=== PATIENT | female | born 1965 | race Two or more races ===

== ENCOUNTER 2025-07-16 01:20 | Inpatient (IN) | payer MEDICAID, OTHER ==
[2025-07-16] VITALS (17 sets, daily range): BP systolic 98–111; BP diastolic 61–86; PULSE 79–89; RESP 16–30; TEMP 98.6; O2SAT 94–98
[~2025-07-16] VITALS: Ht 162.6 cm; Wt 93.5 kg
--- NOTE | 2025-07-16 01:36 | ED.PDOC ---
SOB-HPI HPI Comments 60-year-old female came to ER via EMS for shortness a breath. Per EMS, about 2 hours ago, patient developed sudden onset, unprovoked shortness a breath with tachypnea. Denies any acute chest pains. Was saturating at 65% at 5 L/min on scene. Patient does have history of hypertension, dyslipidemia, CHF, pulmonary fibrosis at home oxygen at 5 lpm Chief Complaint: Shortness of breath Time Seen by MD: 01:35 Reviewed notes: Nurses Notes Information Source: Patient Mode of Arrival: EMS Severity: Moderate Timing: Hours Duration: Since onset Context: At Rest History of: CHF, Other (Pulmonary fibrosis) Prehospital treatment: Breathing Tx, Oxygen Past Medical History PAST MEDICAL HISTORY: CHF, High Lipids, HTN Past Medical History (Other): Pulmonary fibrosis Surgical History: Denies all surgeries HYDROELECTRIC PRODUCTION MANAGER History: Denies all HYDROELECTRIC PRODUCTION MANAGER Hx Family History Family History: Reviewed,noncontributory to illness Social History Smoker: Non-Smoker Alcohol: Denies ETOH Use Drugs: Denies Drug Use Lives In: Home Constitutional: denies: chills, diaphoresis, fatigue, fever, malaise, sweats, weakness, others EENTM: denies: blurred vision, double vision, ear bleeding, ear discharge, ear drainage, ear pain, ear ringing, eye pain, eye redness, hearing loss, mouth pain, mouth swelling, nasal discharge, nose bleeding, nose congestion, nose pain, photophobia, tearing, throat pain, throat swelling, voice changes, others Respiratory: reports: SOB at rest, shortness of breath; denies: cough, hemoptysis, orthopnea, SOB with excertion, stridor, wheezing, others Cardiovascular: denies: chest pain, dizzy spells, diaphoresis, Dyspnea on exertion, edema, irregular heart beat, left arm pain, lightheadedness, palpitations, PND, syncope, others Gastrointestinal: denies: abdomen distended, abdominal pain, blood streaked bowels, constipated, diarrhea, dysphagia, difficulty swallowing, hematemesis, melena, nausea, poor appetite, poor fluid intake, rectal bleeding, rectal pain, vomiting, others Genitourinary: denies: abnormal vagina bleeding, burning, dyspareunia, dysuria, flank pain, frequency, hematuria, incontinence, pain, , vagina discharge, urgency, others Neurological: denies: dizziness, fainting, headache, left sided numbness, left sided weakness, numbness, paresthesia, pre-existing deficit, right sided numbness, right sided weakness, seizure, speech problems, tingling, tremors, weakness, others Musculoskeletal: denies: back pain, gout, joint pain, joint swelling, muscle pain, muscle stiffness, neck pain, others Integumetry: denies: bruises, change in color, change in hair/nails, dryness, laceration, lesions, lumps, rash, wounds, others Allergic/Immunocompromised: denies: Difficulty Healing, Frequent Infections, Hives, Itching, others Hematologic/Lymphatic: denies: anemia, blood clots, easy bleeding, easy bruising, swollen glands, others Endocrine: denies: excessive hunger, excessive sweating, excessive thirst, excessive urination, flushing, intolerance to cold, intolerance to heat, unexplained weight gain, unexplained weight loss, others Psychiatric: denies: anxiety, bipolar disorder, depression, hopeless, panic disorder, schizophrenia, sleepless, suicidal, others Physical Exam General Appearance: No Apparent Distress, Normal HEENT: Normal ENT Inspection, Pharynx Normal, TMs Normal Neck: Full Range of Motion, Non-Tender, Normal, Normal Inspection Respiratory: Chest Non-Tender, Lungs Clear, No Accessory Muscle Use, No Respiratory Distress, Normal Breath Sounds Cardiovascular: No Edema, No JVD, No Murmur, No Gallop, Normal Peripheral Pulses, Regular Rate/Rhythm Breast Exam: Deferred Gastrointestinal: No Organomegaly, Non Tender, No Pulsatile Mass, Normal Bowel Sounds, Soft Genitalia: Deferred Pelvic: Deferred Rectal: Deferred Extremities: No calf tenderness, Normal capillary refill, Normal inspection, Normal range of motion, Non-tender, No pedal edema Musculoskeletal : Apperance: Normal Neurologic: Alert, door to door selling agent II-XII nml as Tested, No Motor Deficits, Normal Affect, Normal Mood, No Sensory Deficits Cerebellar Function: Normal Reflexes: Normal Skin: Dry, Normal Color, Warm Lymphatic: No Adenopathy Was a procedure done? Was a procedure done?: No Differential Dx Differential Diagnosis: Anxiety, Asthma, Bronchitis, CHF, COPD, Pneumonia, Respiratory Distress, URI, Other (Pulmonary fibrosis) X-Ray, Labs, Meds, VS Vital Signs Date Time Temp Pulse Resp B/P (MAP) Pulse Ox O2 Delivery O2 Flow Rate FiO2 07/16/25 02:20 98 07/16/25 01:49 94 31 92/63 (73) 97 07/16/25 01:28 98.8 103 31 77/42 (54) 94 98.8 07/16/25 01:28 94 Non-Rebreather 15 N/A 07/16/25 01:24 111 07/16/25 01:20 98.0 128 32 84/63 84 98.0 Lab Test 07/16/25 02:18 07/16/25 01:42 07/16/25 01:27 Range/Units Troponin I High Sensitivity 133 *H 32 </=34 ng/L Blood Gas Specimen Type Venous Blood Gas Sample Site Vbg - n/a Blood Gas Patient Temperature 37.0 Arterial Blood Date Drawn [id number] Moises Test N/a Venous Blood pH 7.398 7.320-7.430 Venous Blood pCO2 at Patient Temp 35.9 L 38.0-54.0 mmHg Venous Blood pO2 at Patient Temp < 36.5 23.0-48.0 mmHg Venous Blood HCO3 21.6 L 22.0-29.0 mmol/L Venous Blood Base Excess -2.5 L -2.0-3.0 mmol/L Blood Gas Liter Flow 15.00 Blood Gas Modality Mask - nrb FiO2 % 100.0 White Blood Count 11.8 H 4.4-10.8 10^3/uL Red Blood Count 4.89 4.0-5.20 10^6/uL Hemoglobin 16.0 12.2-16.2 g/dL Hematocrit 47.6 H 36.0-46.0 % Mean Corpuscular Volume 97.5 80.0-100.0 fL Mean Corpuscular Hemoglobin 32.8 H 28.0-32.0 pg Mean Corpuscular Hemoglobin Concent 33.6 32.0-36.0 g/dL Red Cell Distribution Width 15.1 H 11.8-14.3 % Platelet Count 199 140-450 10^3/uL Mean Platelet Volume 9.8 6.9-10.8 fL Neutrophils (%) (Auto) 49.8 37.0-80.0 % Lymphocytes (%) (Auto) 39.0 10.0-50.0 % Monocytes (%) (Auto) 6.4 0.0-12.0 % Eosinophils (%) (Auto) 4.3 0.0-7.0 % Basophils (%) (Auto) 0.5 0.0-2.0 % Neutrophils # (Auto) 5.9 1.6-8.6 10 ^3/uL Lymphocytes # (Auto) 4.6 0.4-5.4 10 ^3/uL Monocytes # (Auto) 0.8 0-1.3 10 ^3/uL Eosinophils # (Auto) 0.5 0-0.8 10 ^3/uL Basophils # (Auto) 0.1 0-0.2 10 ^3/uL Nucleated Red Blood Cells 0.1 % Sodium Level 139 136-145 mmol/L Potassium Level 2.5 *L 3.5-5.1 mmol/L Chloride Level 98 98-107 mmol/L Carbon Dioxide Level 21 20-31 mmol/L Anion Gap 20 H 5-15 Blood Urea Nitrogen 14 9-23 mg/dL Creatinine 1.09 H 0.550-1.02 mg/dL Glomerular Filtration Rate Calc 58 >90 mL/min BUN/Creatinine Ratio 12.8 10.0-20.0 Serum Glucose 144 H 74-106 mg/dL Lactic Acid Level 7.8 *H 0.4-2.0 mmol/L Calcium Level 8.6 L 8.7-10.4 mg/dL Total Bilirubin 0.7 0.2-1.0 mg/dL Aspartate Amino Transferase (AST) 84 H 13-40 U/L Alanine Aminotransferase (ALT) 42 H 7-40 U/L Alkaline Phosphatase 184 H 46-116 U/L B-Type Natriuretic Peptide 1146.90 0-100 pg/mL Total Protein 7.5 5.7-8.2 g/dL Albumin 3.5 3.2-4.8 g/dL Current Medications Medications (Trade) Dose Ordered Sig/Lencho Route Start Time Stop Time Status Last Admin Sodium Chloride 1,000 ml @ 1,000 mls/hr Q1H ONCE IV 07/16/25 01:30 07/16/25 02:29 DC 07/16/25 01:42 CHEST RADIOGRAPH Indication: SOB Technique: Single frontal view of the chest was obtained COMPARISON: None FINDINGS: Lines and Tubes: None Lungs: Moderate diffuse increased prominence of the pulmonary vasculature and interstitium. No evidence of focal consolidation. Pleura: No effusion. No pneumothorax. Cardiomediastinal contours: Unremarkable Bones: Unremarkable IMPRESSION: 1. Moderate diffuse increased prominence of the pulmonary vasculature and interstitium. Time of 1ST Reevaluation: 01:31 Reevaluation 1ST: Unchanged Patient Education/Counseling: Diagnosis, Treatment Family Education/Counseling: No Family Present SEPSIS Sepsis Screen Physician Orders Troponin-I Hs (07/16/25 09:00) Urinalysis (07/16/25 01:28) Blood Culture (07/16/25 01:28) Electrocardigram (07/16/25 01:28) Venous Blood Gas (07/16/25 01:28) Chest Portable (07/16/25 01:50) Piperacillin-Tazob 3.375gm (Zosyn 3.375g (07/16/25 02:30) Azithromycin 500mg/ 250ml (Zithromax 50 (07/16/25 02:30) Sodium Chloride 0.9% (07/16/25 03:15) Vital Signs Date Time Temp Pulse Resp B/P (MAP) Pulse Ox O2 Delivery O2 Flow Rate FiO2 07/16/25 02:20 98 07/16/25 01:49 94 31 92/63 (73) 97 07/16/25 01:28 98.8 103 31 77/42 (54) 94 98.8 07/16/25 01:28 94 Non-Rebreather 15 N/A 07/16/25 01:24 111 07/16/25 01:20 98.0 128 32 84/63 84 98.0 Laboratory Tests Test 07/16/25 01:27 Lactic Acid Level 7.8 mmol/L (0.4-2.0) *H White Blood Count 11.8 10^3/uL (4.4-10.8) H Medications Medications Dose Ordered Sig/Lencho Route Start Time Stop Time Status Last Admin Dose Admin Sodium Chloride 1,000 ml @ 1,000 mls/hr Q1H ONCE IV 07/16/25 01:30 07/16/25 02:29 DC 07/16/25 01:42 Departure 1 Departure Time of Disposition: 03:20 Impression: Primary Impression: Pulmonary fibrosis Additional Impressions: Respiratory failure with hypoxia Hypotension Acute renal injury Disposition: ADMITTED INPATIENT Admit to: Tele Condition: Guarded Discharged With: Self Comments 60-year-old female with a history of pulmonary fibrosis now with respiratory failure and hypoxia. Patient is requiring non-rebreather mask for oxygenation. On lab review white blood cell count mildly elevated at 12. Hypokalemia 2.5. Lactic acid elevated some 7.8. Troponin initially was normal at 32 but increased to abnormal 133. Creatinine elevated at 1.09. Patient was given IV fluids in her blood pressure improved. Patient was given IV antibiotics. Patient was given potassium replacement and an aspirin. Patient will need to be admitted for respiratory failure with hypoxia, pulmonary fibrosis, hypotension, acute renal injury Critical Care Note Critical Care Time?: Yes (35 min-critical care time only) Critical care comment: Shortness of breath Total critical care time: Approximately 36 minutes Due to a high probability of clinically significant, life threatening deterioration, the patient required my highest level of preparedness to intervene emergently and I personally spent this critical care time directly and personally managing the patient. This critical care time included obtaining a history; examining the patient; pulse oximetry; ordering and review of studies; arranging urgent treatment with development of a management plan; evaluation of patient's response to treatment; frequent reassessment; and, discussions with other providers. This critical care time was performed to assess and manage the high probability of imminent, life-threatening deterioration that could result in multi-organ failure. It was exclusive of separately billable procedures and treating other patients. Stability Stability form required: No Heart Score Heart Score: Heart Score Response (Comments) Value History Moderate Suspicious 1 EKG Repolarization Disturb 1 Age 45-64 1 Risk Factors >3 or Hx ASHD 2 Troponin >3 x's Normal limit 2 Total 7 I personally scribed for ALVARO MADRID MD (MAYUR) on 07/16/25 at 01:36. Electronically submitted by Dewayne Briggs ([email or web address] I personally scribed for ALVARO MADRID MD (MAYUR) on 07/16/25 at 02:31. Electronically submitted by Dewayne Briggs ([facility] I personally scribed for ALVARO MADRID MD (MAYUR) on 07/16/25 at 02:32. Electronically submitted by Dewayne Briggs ([facility]). I personally scribed for ALVARO MADRID MD ([email or web address]) on 07/16/25 at 02:38. Electronically submitted by Dewayne Briggs ([facility]). ALVARO MADRID MD Jul 16, 2025 01:36
[2025-07-16] MEDS: SODIUM CHLORIDE 0.9% 1,000 ML IV ONE ×3 (01:42→03:20)
[2025-07-16 01:59] LABS: Hematocrit 47.6 % (36.0-46.0); Hemoglobin 16.0 g/dL (12.2-16.2); Mean Corpuscular Hemoglobin 32.8 pg (28.0-32.0); Mean Corpuscular Volume 97.5 fL (80.0-100.0); Nucleated Red Blood Cells % 0.1 %
[2025-07-16 02:18] LABS: Albumin 3.5 g/dL (3.2-4.8); Anion Gap 20 (5-15); BUN/Creatinine Ratio 12.8 (10.0-20.0); Bilirubin, Total 0.7 mg/dL (0.2-1.0); Blood Urea Nitrogen 14 mg/dL (9-23); Carbon Dioxide 21 mmol/L (20-31); Chloride 98 mmol/L (98-107); Sodium 139 mmol/L (136-145); Total Protein 7.5 g/dL (5.7-8.2)
[2025-07-16 02:19] LABS: Alanine Aminotransferase 42 U/L (7-40); Alkaline Phosphatase 184 U/L (46-116); Calcium 8.6 mg/dL (8.7-10.4); Glucose 144 mg/dL (74-106)
[2025-07-16 02:24] LABS: Lactic Acid w/Reflex 7.8 mmol/L (0.4-2.0); Potassium 2.5 mmol/L (3.5-5.1)
--- NOTE | 2025-07-16 02:25 | DVH ---
CHEST RADIOGRAPH Indication: SOB Technique: Single frontal view of the chest was obtained COMPARISON: None FINDINGS: Lines and Tubes: None Lungs: Moderate diffuse increased prominence of the pulmonary vasculature and interstitium. No eviden ce of focal consolidation. Pleura: No effusion. No pneumothorax. Cardiomediastinal contours: Unremarkable Bones: Unremarkable IMPRESSION: 1. Moderate diffuse increased prominence of the pulmonary vasculature and interstitium.
[2025-07-16] MEDS: PIPERACILLIN-TAZOB 3.375GM 100 ML IV ONE (02:40)
[2025-07-16] MEDS: AZITHROMYCIN 500MG/ 250ML 250 ML IV ONE (03:47)
--- NOTE | 2025-07-16 03:52 | ECG ---
[facility] Test Date: 2025-07-16 Test Time: 02:20:38 Pat Name: DEBRA RIVERA Department: Room: [address] [place] [address] Gender: F Computer Training Specialist: IFEOMA : 1965 Requested By: ALVARO MADRID Order Number: [id number] Reading MD: Tomás Reid Measurements Intervals [place] Rate: 98 P: 15 [place]: 176 QRS: 132 QRSD: 94 T: -56 QT: 365 QTc: 467 Interpretive Statements Sinus rhythm Left atrial enlargement RVH with secondary repolarization abnrm Electronically Signed On 07-19-2025 10:23:22 PDT by Tomás Reid Please click the below link to view image of tracing.
[2025-07-16] MEDS: NOREPINEPHRINE 8 MG/250ML KIT 250 ML IV SCH (04:43)
[2025-07-16] MEDS: NOREPINEPHRINE 8 MG/250ML KIT 250 ML IV ONE (04:45)
--- NOTE | 2025-07-16 06:16 | DVH ---
CHEST RADIOGRAPH Indication: Central line placement Technique: Single frontal view of the chest was obtained Comparison: XY CHEST PORTABLE on DOS: 07/16/25 FINDINGS: Lines and Tubes: There is a right central venous catheter with its tip terminating in the right atriu m. Lungs: Bilateral increased interstitial prominence. No focal consolidation. Pleura: No effusion. No pneumothorax. Cardiomediastinal contours: Unremarkable Bones: No acute osseous abnormality. IMPRESSION: 1. Right central venous catheter terminates in the right atrium. 2. Pulmonary vascular congestion versus interstitial lung disease.
--- NOTE | 2025-07-16 07:54 | DVHHP2 ---
History of Present Illness Reason for Visit: Shortness of breath History of Present Illness Silvana Blanca is a 60-year-old female with past medical history of pulmonary hypertension that requires home oxygen, states she was diagnosed in 2022, and has been worsening. She states this year it has become severe. She is on 5L N/C at home and mostly bedbound. She was brought to the hospital by EMS for shortness of breath. Patient states last night about 2300 she began to not feel well. States she felt like it was difficult to lift her head, became nauseated, and diaphoretic. That is when she asked her daughter to call EMS. Patient has been mostly bedbound for the last 6 months due to the severity of her pulmonary hypertension. Pulmonary: Other (Pulmonary hypertension) Past Surgical History: None Smoke: No ALCOHOL: none Drugs: None Lives: with Family Domestic Violence: Neg Review of Systems Constitutional: Yes: Sweats, Weakness; No: Fever, Chills, Malaise, Other Eyes: No: Pain, Vision change, Conjunctivae inflammation, Eyelid inflammation, Other, Redness ENT: No: Ear pain, Ear discharge, Nose pain, Nose discharge, Nose congestion, Mouth pain, Mouth swelling, Throat pain, Throat swelling, Other Respiratory: Shortness of breath, SOB with excertion; No: Cough, Dry, Wheezing, Hemoptysis, Pleuritic Pain, Sputum, Wheezing, Other Cardiovascular: No: Chest Pain, Palpitations, Orthopnea, Paroxysmal Noc. Dyspnea, Edema, Lt Headedness, Other Gastrointestinal: Nausea; No: Vomiting, Abdominal Pain, Diarrhea, Constipation, Melena, Hematochezia, Other Genitourinary: No Dysuria, No Frequency, No Incontinence, No Hematuria, No Retention, No Other Musculoskeletal: No: other, neck pain, shoulder pain, arm pain, back pain, hand pain, leg pain, foot pain Skin: No: Rash, Lesions, Jaundice, Bruising, Other Neurological: No: Weakness, Numbness, Incoordination, Change in speech, Confusion, Seizures, Other Allergies: Coded Allergies: NO KNOWN ALLERGIES (Unverified , 07/16/25) Medications Current Medications Medications Dose Ordered Sig/Lencho Route Start Time Stop Time Status Last Admin Dose Admin Norepinephrine Bitartrate 250 ml @ 3.75 mls/hr Q24H IV 07/16/25 04:45 07/16/25 04:43 3.75 MLS/HR Exam Vital Signs Vital Signs Date Time Temp Pulse Resp B/P (MAP) Pulse Ox O2 Delivery O2 Flow Rate FiO2 07/16/25 07:00 97.8 84 27 102/58 (73) 95 97.8 07/16/25 01:28 Non-Rebreather 15 N/A General Appearance: Alert, Oriented X3, Cooperative, mild distress HEENT: Atraumatic, PERRLA Respiratory: Other (Diminished breath sounds) Cardiovascular: Regular rate, Normal S1, Normal S2, Other (Hypotensive) Abdominal: Normal bowel sounds, Soft Extremities: No clubbing, No cyanosis, No edema Skin: No rashes, No breakdown, No significant lesion Neuro: Normal speech, Other (mostly bedbound at baseline due to severe pulmonary hypertension) Psych/Mental Status: Mental status NL Labs/Xrays Labs Test 07/16/25 04:41 07/16/25 03:10 07/16/25 01:42 07/16/25 01:27 Range/Units Troponin I High Sensitivity 909 *H </=34 ng/L Lactic Acid Level 2.7 *H 0.4-2.0 mmol/L Blood Gas Specimen Type Venous Blood Gas Sample Site Vbg - n/a Blood Gas Patient Temperature 37.0 Arterial Blood Date Drawn [id number] Moises Test N/a Venous Blood pH 7.398 7.320-7.430 Venous Blood pCO2 at Patient Temp 35.9 L 38.0-54.0 mmHg Venous Blood pO2 at Patient Temp < 36.5 23.0-48.0 mmHg Venous Blood HCO3 21.6 L 22.0-29.0 mmol/L Venous Blood Base Excess -2.5 L -2.0-3.0 mmol/L Blood Gas Liter Flow 15.00 Blood Gas Modality Mask - nrb FiO2 % 100.0 White Blood Count 11.8 H 4.4-10.8 10^3/uL Red Blood Count 4.89 4.0-5.20 10^6/uL Hemoglobin 16.0 12.2-16.2 g/dL Hematocrit 47.6 H 36.0-46.0 % Mean Corpuscular Volume 97.5 80.0-100.0 fL Mean Corpuscular Hemoglobin 32.8 H 28.0-32.0 pg Mean Corpuscular Hemoglobin Concent 33.6 32.0-36.0 g/dL Red Cell Distribution Width 15.1 H 11.8-14.3 % Platelet Count 199 140-450 10^3/uL Mean Platelet Volume 9.8 6.9-10.8 fL Neutrophils (%) (Auto) 49.8 37.0-80.0 % Lymphocytes (%) (Auto) 39.0 10.0-50.0 % Monocytes (%) (Auto) 6.4 0.0-12.0 % Eosinophils (%) (Auto) 4.3 0.0-7.0 % Basophils (%) (Auto) 0.5 0.0-2.0 % Neutrophils # (Auto) 5.9 1.6-8.6 10 ^3/uL Lymphocytes # (Auto) 4.6 0.4-5.4 10 ^3/uL Monocytes # (Auto) 0.8 0-1.3 10 ^3/uL Eosinophils # (Auto) 0.5 0-0.8 10 ^3/uL Basophils # (Auto) 0.1 0-0.2 10 ^3/uL Nucleated Red Blood Cells 0.1 % Sodium Level 139 136-145 mmol/L Potassium Level 2.5 *L 3.5-5.1 mmol/L Chloride Level 98 98-107 mmol/L Carbon Dioxide Level 21 20-31 mmol/L Anion Gap 20 H 5-15 Blood Urea Nitrogen 14 9-23 mg/dL Creatinine 1.09 H 0.550-1.02 mg/dL Glomerular Filtration Rate Calc 58 >90 mL/min BUN/Creatinine Ratio 12.8 10.0-20.0 Serum Glucose 144 H 74-106 mg/dL Calcium Level 8.6 L 8.7-10.4 mg/dL Total Bilirubin 0.7 0.2-1.0 mg/dL Aspartate Amino Transferase (AST) 84 H 13-40 U/L Alanine Aminotransferase (ALT) 42 H 7-40 U/L Alkaline Phosphatase 184 H 46-116 U/L B-Type Natriuretic Peptide 1146.90 0-100 pg/mL Total Protein 7.5 5.7-8.2 g/dL Albumin 3.5 3.2-4.8 g/dL CHEST RADIOGRAPH FINDINGS: Lines and Tubes: There is a right central venous catheter with its tip terminating in the right atrium. Lungs: Bilateral increased interstitial prominence. No focal consolidation. Pleura: No effusion. No pneumothorax. Cardiomediastinal contours: Unremarkable Bones: No acute osseous abnormality. IMPRESSION: 1. Right central venous catheter terminates in the right atrium. 2. Pulmonary vascular congestion versus interstitial lung disease. SEPSIS Sepsis Screen Date sepsis recognized/suspect: Jul 16, 2025 Time Sepsis recognized/suspect: 227 Recent Procedure: No On Antibiotic Therapy: No Respiratory Rate >20: Yes Heart Rate >90: Yes Temp<36 C (96.8 F) or >38.3 C: No SBP <90 or MAP <65 mmHG: Yes New Acute Mental Status Change: No Is the patient on CPAP, BIPAP,: No Physician Orders Urinalysis (07/16/25 01:28) Blood Culture (07/16/25 01:28) Venous Blood Gas (07/16/25 01:28) Chest Portable (07/16/25 01:50) Norepinephrine 8 Mg/250ml Kit (Levophed) (07/16/25 04:45) Chest Portable (07/16/25 05:37) * Cardiology Consult (07/16/25 07:48) Admit (07/16/25 07:48) Code Status (07/16/25 07:48) Hydrocodone-Acet 5/325mg Tab ([place] (07/16/25 08:00) Ondansetron Hcl (Zofran) (07/16/25 08:00) Docusate Sodium Capsule (Colace Capsule) (07/16/25 08:00) Complete Blood Count (07/17/25 04:00) Comprehensive Metabolic Panel (07/17/25 04:00) Npo (Nothing By Mouth) Diet (07/16/25 Breakfast) Echo 2d Mode Cardiac Dop (07/16/25 07:48) Condition: Critical (07/16/25 07:48) Acetaminophen Tablet (Tylenol Tablet) (07/16/25 08:00) Morphine Sulfate Injection (07/16/25 08:00) Nitroglycerin Sublingual (Ntrostat Subli (07/16/25 08:00) Morphine Sulfate Injection (07/16/25 08:00) Stat Ekg For Chest Pain (07/16/25 07:48) Notify Of Changes From Base (07/16/25 07:48) Latent Fingerprint Examiner For 24 Hours (07/16/25 07:48) Emergency Dysrhythmia Protocol (07/16/25 07:48) Rhythm Strips Once Every Shift (07/16/25 07:48) Oxygen By Nasal Cannula (07/16/25 07:48) Vital Signs Date Time Temp Pulse Resp B/P (MAP) Pulse Ox O2 Delivery O2 Flow Rate FiO2 07/16/25 07:00 97.8 84 27 102/58 (73) 95 97.8 07/16/25 07:00 102/58 07/16/25 06:00 104/57 07/16/25 06:00 80 22 104/57 (73) 99 07/16/25 05:44 88/58 07/16/25 05:10 85 22 99/65 (76) 97 07/16/25 04:48 76/51 07/16/25 04:43 64/34 07/16/25 04:00 87 18 91/52 (65) 97 07/16/25 04:00 88 07/16/25 02:20 98 07/16/25 01:49 94 31 92/63 (73) 97 07/16/25 01:28 98.8 103 31 77/42 (54) 94 98.8 07/16/25 01:28 94 Non-Rebreather 15 N/A 07/16/25 01:24 111 07/16/25 01:20 98.0 128 32 84/63 84 98.0 Laboratory Tests Test 07/16/25 01:27 07/16/25 03:10 Lactic Acid Level 7.8 mmol/L (0.4-2.0) *H 2.7 mmol/L (0.4-2.0) *H White Blood Count 11.8 10^3/uL (4.4-10.8) H Medications Medications Dose Ordered Sig/Lencho Route Start Time Stop Time Status Last Admin Dose Admin Aspirin 162 mg ONCE ONCE PO 07/16/25 03:00 07/16/25 03:01 DC 07/16/25 03:25 162 MG Azithromycin 250 ml @ 125 mls/hr ONCE ONCE IV 07/16/25 02:30 07/16/25 04:29 DC 07/16/25 03:47 125 MLS/HR Norepinephrine Bitartrate 250 ml @ 3.75 mls/hr Q24H IV 07/16/25 04:45 07/16/25 04:43 3.75 MLS/HR Piperacillin Sod/ Tazobactam Sod 100 ml @ 100 mls/hr ONCE ONCE IV 07/16/25 02:30 07/16/25 03:29 DC 07/16/25 02:40 100 MLS/HR Sodium Chloride 1,000 ml @ 1,000 mls/hr Q1H ONCE IV 07/16/25 01:30 07/16/25 02:29 DC 07/16/25 01:42 1,000 MLS/HR Sodium Chloride 1,000 ml @ 1,000 mls/hr Q1H ONCE IV 07/16/25 03:15 07/16/25 04:14 DC 07/16/25 03:20 1,000 MLS/HR Assessment/Plan Assessment/Plan Assessment: Acute hypoxic respiratory failure, Elevated troponin, R/O ACS, Possible cardiogenic shock, Lactic acidosis, R/O PE, Pulmonary hypertension, oxygen dependant, Plan: Admit to ICU, Cardiology consult, Consider pulmonology consult for severe pulmonary hypertension, Vasopressors as needed, ECHO, A1c, lipid panel, TSH, D-Dimer, Bilateral lower extremity ultrasound, Consider CT angio of chest, IV antibiotics, Blood cultures, UA, Bilateral lower extremity ultrasound, CT angio of chest, Home medications reconciled, Plan discussed with: Patient My Orders Orders - FERNIE NEGRON [employer] Procedure Category Date Status Time * Cardiology Consult CONS 07/16/25 Transmitted 07:48 Admit ADMIT 07/16/25 Transmitted 07:48 Code Status CODE 07/16/25 Transmitted 07:48 Hydrocodone-Acet PHA 07/16/25 Transmitted 5/325mg Tab ([place] 08:00 Ondansetron Hcl PHA 07/16/25 Transmitted (Zofran) 08:00 Docusate Sodium PHA 07/16/25 Transmitted Capsule (Colace 08:00 Complete Blood Count LAB 07/17/25 Verified 04:00 Comprehensive LAB 07/17/25 Verified Metabolic Panel 04:00 Npo (Nothing By DIET 07/16/25 Transmitted Mouth) Diet Breakfast Echo 2d Mode Cardiac US 07/16/25 Transmitted DOP 07:48 Condition: Critical PRANAV 07/16/25 In Process 07:48 Acetaminophen Tablet PHA 07/16/25 Transmitted (Tylenol Tablet) 08:00 Morphine Sulfate [facility] 07/16/25 Transmitted Injection 08:00 Nitroglycerin [facility] 07/16/25 Transmitted Sublingual (Ntrostat 08:00 Morphine Sulfate [facility] 07/16/25 Transmitted Injection 08:00 Stat Ekg For Chest [facility] 07/16/25 In Process Pain 07:48 Notify Of Changes [facility] 07/16/25 In Process From Base 07:48 Latent Fingerprint Examiner For [facility] 07/16/25 In Process 24 Hours 07:48 Emergency Dysrhythmia [facility] 07/16/25 In Process Protocol 07:48 Rhythm Strips Once [facility] 07/16/25 In Process Every Shift 07:48 Oxygen By Nasal RT 07/16/25 Transmitted Cannula 07:48 Date of Service: Jul 16, 2025 Billing Provider: FERNIE NEGRON Common Visit Codes: [id number] INP/OBS CARE (HIGH) FERNIE NEGRON Jul 16, 2025 07:54
[2025-07-16] MEDS ORDERED: MORPHINE SULFATE INJ 2 MG/ml SYRG IV PRN ×2 (08:00)
[2025-07-16] MEDS ORDERED: NITROGLYCERIN 0.4 MG SL TAB SL PRN (08:00)
[2025-07-16] MEDS: POTASSIUM CHL 20MEQ/100ML 100 ML IV SCH (09:13)
[2025-07-16] MEDS: HYDROcodone-ACET 5/325MG TAB PO PRN (10:09)
[2025-07-16 10:44] LABS: Cholesterol 90 mg/dL (< 200)
[2025-07-16 10:50] LABS: HDL Cholesterol 20 mg/dL (40-59); Triglycerides 170 mg/dL (< 150)
[2025-07-16 10:52] LABS: Lactic Acid w/Reflex 2.2 mmol/L (0.4-2.0)
--- NOTE | 2025-07-16 11:34 | DVHINCON2 ---
Date Seen: Jul 16, 2025 Referring Physician TEODORO Meyer Reason for Consultation Elevated troponin History of Present Illness This is a 60 year old female patient who presents to emergency room with chief complaint of worsening shortness of breath for 2 hours prior to emergency room arrival. The patient states that she checked her pulse oximetry at home which was reaching 60% with 4 L of home O2. She came to the emergency room for further evaluation. Cardiology has been consulted at this time for elevated troponin level. Initial twelve lead electrocardiogram reveals sinus tachycardia with PVCs, PACs with baseline wander. Initial troponin level of 32ng/L with significant up trend and current peak level of 2845ng/L. Patient denies any chest pain. Significant past medical history includes right-sided heart failure, pulmonary hypertension, dyslipidemia, pulmonary fibrosis on continuous home O2, history of tobacco use and remote history of drug use. The patient denies following up with a pipe changer in the outpatient setting. Past Medical History Past medical history reviewed. No other significant than mentioned above. Past Surgical History Denies any previous surgeries Family History Family history reviewed. Social History Patient has a 15 pack-year history, quit smoking approximately 11 months ago Patient admits to heroin use over 40 years ago, denies any recent use Denies alcohol use Allergies: Coded Allergies: NO KNOWN ALLERGIES (Unverified , 07/16/25) Home Meds Home medications reviewed. Current Medications Current Medications Medications (Trade) Dose Ordered Sig/Lencho Route PRN Reason Start Time Stop Time Status Last Admin Norepinephrine Bitartrate 250 ml @ 3.75 mls/hr Q24H IV 07/16/25 04:45 07/16/25 04:43 Acetaminophen/ Hydrocodone Bitart ([place] 5/325MG Tab) 1 tab Q4HP PRN PO MODERATE PAIN (4-6 PAIN SCALE) 07/16/25 08:00 07/16/25 10:09 Ondansetron HCl (Zofran) 4 mg Q4HP PRN IV NAUSEA / VOMITING 07/16/25 08:00 Docusate Sodium (Colace Capsule) 100 mg BIDPRN PRN PO FOR CONSTIPATION 07/16/25 08:00 Acetaminophen (Tylenol Tablet) 650 mg Q6HP PRN PO PAIN SCALE 1-3 OR TEMP>100.4 07/16/25 08:00 Morphine Sulfate 2 mg Q4HPRN PRN IV SEVERE PAIN (7-10 PAIN SCALE) 07/16/25 08:00 Nitroglycerin (Ntrostat Sublingual) 0.4 mg Q5MINP PRN SL FOR CHEST PAIN 07/16/25 08:00 Morphine Sulfate 2 mg Q30M PRN IV FOR CHEST PAIN 07/16/25 08:00 Potassium Chloride 100 ml @ 50 mls/hr Q2H IV 07/16/25 08:30 07/16/25 14:29 07/16/25 10:52 Review of Systems Constitutional: No symptom reported Ears, Nose, & Throat: No symptom reported Eyes: No symptom reported Neurological: No symptoms reported Pulmonary/Respiratory: Shortness of breath Cardiovascular: No symptom reported Gastrointestinal: No symptom reported Genitourinary: No symptom reported Musculoskeletal: No symptom reported Skin: No symptom reported Psychiatric: No symptom reported Endocrine: No symptom reported Hematologic/Lymphatic: No symptom reported Vital Signs Vital Signs Date Time Temp Pulse Resp B/P (MAP) Pulse Ox O2 Delivery O2 Flow Rate FiO2 07/16/25 11:18 87 07/16/25 07:25 97.8 29 98 97.8 07/16/25 07:25 Hi-Flow NC 11 N/A 07/16/25 07:00 102/58 (73) Physical Exam General Appearance: Cooperative. Well-developed. Well-nourished. No acute distress. Pulmonary/Respiratory: Clear, bilateral breaths sounds. Cardiovascular/Chest: Regular rate and rhythm. Peripheral Pulses: 2+ Radial (R). 2+ Radial (L). 2+ Pedal (R). 2+ Pedal (L) Abdominal Exam: Normal bowel sounds. Ankle Exam: Negative ankle edema Lower extremities: Negative lower extremity edema Neuro/Mental Status: A/OX4, coherent. Thoughts/Psych: Normal thought pattern. Appropriate mood and affect. Good judgment and insight. Appearance: No acute distress. Skin Exam: Normal inspection. Normal color. Warm and dry. Labs/Diagnostic Data Labs Test 07/16/25 10:44 07/16/25 09:14 07/16/25 01:42 07/16/25 01:27 Range/Units Troponin I High Sensitivity 2845 *H </=34 ng/L Hemoglobin A1c 5.5 <5.7 % A1C Lactic Acid Level 2.2 *H 0.4-2.0 mmol/L Triglycerides Level 170 H < 150 mg/dL Cholesterol Level 90 < 200 mg/dL LDL Cholesterol 61 < 100 mg/dL HDL Cholesterol 20 L 40-59 mg/dL Thyroid Stimulating Hormone (TSH) 0.26 L 0.55-4.78 uIU/mL Blood Gas Specimen Type Venous Blood Gas Sample Site Vbg - n/a Blood Gas Patient Temperature 37.0 Arterial Blood Date Drawn [id number] Moises Test N/a Venous Blood pH 7.398 7.320-7.430 Venous Blood pCO2 at Patient Temp 35.9 L 38.0-54.0 mmHg Venous Blood pO2 at Patient Temp < 36.5 23.0-48.0 mmHg Venous Blood HCO3 21.6 L 22.0-29.0 mmol/L Venous Blood Base Excess -2.5 L -2.0-3.0 mmol/L Blood Gas Liter Flow 15.00 Blood Gas Modality Mask - nrb FiO2 % 100.0 White Blood Count 11.8 H 4.4-10.8 10^3/uL Red Blood Count 4.89 4.0-5.20 10^6/uL Hemoglobin 16.0 12.2-16.2 g/dL Hematocrit 47.6 H 36.0-46.0 % Mean Corpuscular Volume 97.5 80.0-100.0 fL Mean Corpuscular Hemoglobin 32.8 H 28.0-32.0 pg Mean Corpuscular Hemoglobin Concent 33.6 32.0-36.0 g/dL Red Cell Distribution Width 15.1 H 11.8-14.3 % Platelet Count 199 140-450 10^3/uL Mean Platelet Volume 9.8 6.9-10.8 fL Neutrophils (%) (Auto) 49.8 37.0-80.0 % Lymphocytes (%) (Auto) 39.0 10.0-50.0 % Monocytes (%) (Auto) 6.4 0.0-12.0 % Eosinophils (%) (Auto) 4.3 0.0-7.0 % Basophils (%) (Auto) 0.5 0.0-2.0 % Neutrophils # (Auto) 5.9 1.6-8.6 10 ^3/uL Lymphocytes # (Auto) 4.6 0.4-5.4 10 ^3/uL Monocytes # (Auto) 0.8 0-1.3 10 ^3/uL Eosinophils # (Auto) 0.5 0-0.8 10 ^3/uL Basophils # (Auto) 0.1 0-0.2 10 ^3/uL Nucleated Red Blood Cells 0.1 % Sodium Level 139 136-145 mmol/L Potassium Level 2.5 *L 3.5-5.1 mmol/L Chloride Level 98 98-107 mmol/L Carbon Dioxide Level 21 20-31 mmol/L Anion Gap 20 H 5-15 Blood Urea Nitrogen 14 9-23 mg/dL Creatinine 1.09 H 0.550-1.02 mg/dL Glomerular Filtration Rate Calc 58 >90 mL/min BUN/Creatinine Ratio 12.8 10.0-20.0 Serum Glucose 144 H 74-106 mg/dL Calcium Level 8.6 L 8.7-10.4 mg/dL Total Bilirubin 0.7 0.2-1.0 mg/dL Aspartate Amino Transferase (AST) 84 H 13-40 U/L Alanine Aminotransferase (ALT) 42 H 7-40 U/L Alkaline Phosphatase 184 H 46-116 U/L B-Type Natriuretic Peptide 1146.90 0-100 pg/mL Total Protein 7.5 5.7-8.2 g/dL Albumin 3.5 3.2-4.8 g/dL Assessment NSTEMI Rule out structural heart disease Tricuspid valve regurgitation Septic shock vs cardiogenic, ?Mixed Severe hypokalemia Severe pulmonary hypertension Pulmonary fibrosis on continuous home O2 Transaminitis History of tobacco use Remote history of drug use Plan/Recommendation We will continue with the following plan/recommendations (Dr. Zavaleta): Case discussed with . MD Dr. Zavaleta was able to obtain records from [facility] which discovered a recent echocardiogram in April which revealed right-sided heart failure with severe pulmonary hypertension and tricuspid valve regurgitation. We will proceed with obtaining a transthoracic echocardiogram to evaluate cardiac function and check for wall motion abnormalities. Patient is currently on vasopressor therapy for hemodynamic support. Elevated troponin levels noted. Patient currently denies any chest pain, but became in with shortness of breath. Primary team ruling out pulmonary embolism. Elevated lactic acid level noted. Case also discussed with . No urgent need for coronary angiogram at this time. Initiate therapeutic Lovenox in the meantime. Plan for possible coronary angiogram in the next few days. Consider diuresis with stable potassium level. Monitor and replete electrolytes as needed. Continue with close cardiac surveillance. Further recommendations per clinical course and progression. Antibiotics per primary care team. Thank you for allo wing us to care for this patient. Please call with any questions or concerns. Critical care time spent: 44 minutes This medical document was created using an electronic medical record system with voice recognition software and computerized dictation system. Although this document has been carefully reviewed, there might still be some phonetic and typographical errors. Occasional wrong-word or ``sound-alike substitutions may have occurred due to the inherent limitations of voice recognition software. These areas are purely typographical due to imperfections of the software programs and do not reflect any compromise in the patient's medical care. Please read the chart carefully and recognize, using context, where these substitutions have occurred. Plan discussed with: Patient NYHA Physical activity limitations: NA Date of Service: Jul 16, 2025 Billing Provider: BABITA LIZ Cardiology Common Codes: [id number] INP/OBS CARE (High) Cardiology Consultation Codes: [id number] CONSULT <45MIN BABITA LIZ Jul 16, 2025 11:34
[2025-07-16 12:57] LABS: INR 1.16 (0.9-1.15); Partial Thromboplastin Time 28.7 SEC (24.5-34.5); Prothrombin Time 12.1 sec (9.3-11.8)
--- NOTE | 2025-07-16 13:26 | DVHSR ---
APPROVED REPORT EXAM: Two-dimensional and M-mode echocardiogram with Doppler and color Doppler. Blood Pressure: 102/58 mmHg RISK FACTORS Height: 5' 4", Weight: 165 DIMENSIONS LVDd4.6 (3.8-5.7cm)LA (2D)3.2 (1.9-4.0cm)Aortic Root3.2 (2.0-3.7cm) LVDs3.0 (2.5-4.0cm)LA (MM) (1.9-4.0cm)Aortic Cusp Exc1.9 (1.5-2.0cm) EF (%) 64.4 (55-70%)Rt. Atrium6.0 (1.9-4.0cm)Asc. Aorta cm IVSd1.1 (0.7-1.1cm)RV (D) (1.8-2.4cm) PWd1.0 (0.7-1.1cm) Mitral Valve MitralMitral Stenosis E wave0.30m/sMV Mean GR.mmHg A wave0.70m/sMV Peak GR.mmHg E/A ratio0.42D MVAcm2 Aortic Valve Aortic ValveAortic Stenosis V10.70m/Mackenzie Mean GR.2mmHg V20.90m/Mackenzie Peak GR.4mmHg LVOT Diameter2.1 (1.8-2.4cm)Doppler AVA2.69cm2 Tricuspid Valve TR Velocity4.50m/s [id number] Conclusion lvef >50% flattened IV septum c/w RV failure severe RV enlargement and dysfunction noted severe RA enlarged moderate tricuspid regurg (could be worse) severe plm htn, PASP > 90 mmhg
[2025-07-16] MEDS ORDERED: VANCOMYCIN PER PHARMACY 0 MG IV SCH (13:30)
--- NOTE | 2025-07-16 13:50 | DVH ---
CLINICAL HISTORY: R/O DVT TECHNIQUE: Color and duplex doppler imagine of the bilateral lower extremity veins was performed. Ves hubert compression and augmentation if possible was also performed. COMPARISON: None FINDINGS: Right lower Extremity: Right common femoral vein: Normal compressibility and flow. Right superficial femoral vein: Normal compressibility and flow. Right popliteal vein: Normal compressibility and flow. Proximal calf veins demonstrate flow. Left lower Extremity: Left common femoral vein: Normal compressibility and flow. Left superficial femoral vein: Normal compressibility and flow. Left popliteal vein: Normal compressibility and flow. Proximal calf veins demonstrate flow. IMPRESSION: NO SONOGRAPHIC EVIDENCE FOR DEEP VENOUS THROMBOSIS IN THE BILATERAL LOWER EXTREMITY VEINS.
[2025-07-16] MEDS: FUROSEMIDE 40 MG/4 ML VIAL IV ONE (14:30)
[2025-07-16] MEDS ORDERED: SILD100T73 PO (14:32)
[2025-07-16] MEDS ORDERED: ATOR40TA52 PO (14:32)
[2025-07-16] MEDS ORDERED: LEVO125T7 PO (14:32)
[2025-07-16] MEDS ORDERED: BUDE0.253 IN (14:32)
[2025-07-16] MEDS ORDERED: [UNRECOGNIZED DRUG - CODE] IN (14:32)
[2025-07-16] MEDS ORDERED: FURO40TA4 PO (14:32)
[2025-07-16] MEDS: VANCOMYCIN 1.5GM/250ML IV ONE (15:24)
[2025-07-16] MEDS ORDERED: NOREPINEPHRINE BITARTRATE 16 MG in SODIUM CHL 0.9% 234 ML IV SCH (15:30)
--- NOTE | 2025-07-16 19:36 | DVH ---
INDICATION: R/O PE TECHNIQUE: Multidetector CTA of the chest was performed of the chest with 100 cc of intravenous contr ast. PULMONARY ANGIOGRAPHY PROTOCOL was utilized using a bolus-tracking technique centered on the robin n pulmonary artery. Axial, coronal and sagittal multiplanar and MIP reformats were performed. Radiation Dose Information: CT Dose: CTDI volume is 26.46 mGy. Dose-length product is 2.54 mGy*cm Omnipaque 350: 80 mL The dose indicators for CT are the volume Computed Tomography (CT) Dose Index (CTDIvol) and the Dose Length Product (DLP), and are measured in units of mGy and mGy-cm, respectively. These indicators are not patient dose, but values generated from the CT scanner acquisition factors. The report includes radiation exposure data for exposures received during this examination. Findings: Pulmonary artery: Normal caliber of the pulmonary artery. No large central or large segmental pulmo nary embolism. No findings of pulmonary artery hypertension. Lower neck: Normal thyroid. Lungs: Pulmonary fibrosis patchy airspace disease pulmonary parenchymal scarring or areas of atelecta sis. Heart/Vascular Structures: Normal heart size. Normal caliber and enhancement of the aorta. Possible r ight heart strain. Lymph Nodes: No adenopathy Pleura: No pleural effusion or significant pneumothorax. Musculoskeletal: No acute osseous abnormality. Upper abdomen: Limited portions of the upper abdomen are unremarkable. IMPRESSION: 1. No pulmonary embolism or pulmonary artery hypertension 2. Pulmonary fibrosis with patchy airspace disease. 3. Possible right heart strain.
[2025-07-16 22:00] LABS: Urine Protein, UAD TRACE (Negative)
[2025-07-16] MEDS: ENOXAPARIN SOD 80 MG/0.8ML SYRINGE SC SCH (22:59)
[2025-07-16] MEDS: ATORVASTATIN 20 MG TAB PO SCH (23:08)
[2025-07-16] MEDS: SILDENAFIL CITRATE 20 MG TAB PO SCH (23:09)
--- NOTE | 2025-07-16 23:12 | DVHINCON2 ---
Date Seen: Jul 16, 2025 Referring Physician TEODORO Meyer Reason for Consultation Elevated troponin History of Present Illness This is a 60 year old female with a past medical history of right-sided heart failure, pulmonary hypertension, dyslipidemia, pulmonary fibrosis on continuous home O2, history of tobacco use and remote history of drug use who presents to ED with a complaint of worsening shortness of breath for 2 hours prior to ED arrival. Patient states that she checked her pulse oximetry at home which was reaching 60% with 4 L of home O2. She came to the ED for further evaluation. Cardiology has been consulted at this time for elevated troponin level. Initial twelve lead electrocardiogram reveals sinus tachycardia with PVCs, PACs with baseline wander. Initial troponin level of 32ng/L with significant up trend and current peak level of 2845ng/L. Patient denies any chest pain. The patient denies following up with a spa consultant in the outpatient setting. WBC 11.8. Chest x-ray shows moderate diffuse increased prominence of the pulmonary vascula ture and interstitium. Past Medical History Past medical history reviewed. No other significant than mentioned above. Past Surgical History Denies any previous surgeries Allergies: Coded Allergies: NO KNOWN ALLERGIES (Unverified , 07/16/25) Home Meds Reported Medications Atorvastatin Calcium (ATORVASTATIN CALCIUM) 40 Mg Tab, 1 TAB PO QPM, #90 TAB 3 Refills 07/16/25 Treprostinil (Tyvaso [facility]) 32 Mcg Pow, 32 MCG IN Q4HR, POW 07/16/25 Sildenafil Citrate (Sildenafil Citrate) 100 Mg Tab, 20 MG PO TID, TAB 07/16/25 Furosemide (Furosemide) 40 Mg Tab, 1 TAB PO BID, #30 TAB 5 Refills 07/16/25 Budesonide (Inhalation) (Budesonide) 0.25 Mg/2 Ml Kanchan, 0.25 MG IN BID, ML 07/16/25 Levothyroxine Sodium (Levothyroxine Sodium) 125 Mcg Tab, 1 TAB PO DAILY, #30 TAB 5 Refills 07/16/25 Current Medications Current Medications Medications (Trade) Dose Ordered Sig/Lencho Route PRN Reason Start Time Stop Time Status Last Admin Norepinephrine Bitartrate 250 ml @ 3.75 mls/hr Q24H IV 07/16/25 04:45 07/16/25 04:43 Acetaminophen/ Hydrocodone Bitart ([place] 5/325MG Tab) 1 tab Q4HP PRN PO MODERATE PAIN (4-6 PAIN SCALE) 07/16/25 08:00 07/16/25 10:09 Ondansetron HCl (Zofran) 4 mg Q4HP PRN IV NAUSEA / VOMITING 07/16/25 08:00 Docusate Sodium (Colace Capsule) 100 mg BIDPRN PRN PO FOR CONSTIPATION 07/16/25 08:00 Acetaminophen (Tylenol Tablet) 650 mg Q6HP PRN PO PAIN SCALE 1-3 OR TEMP>100.4 07/16/25 08:00 Morphine Sulfate 2 mg Q4HPRN PRN IV SEVERE PAIN (7-10 PAIN SCALE) 07/16/25 08:00 Nitroglycerin (Ntrostat Sublingual) 0.4 mg Q5MINP PRN SL FOR CHEST PAIN 07/16/25 08:00 Morphine Sulfate 2 mg Q30M PRN IV FOR CHEST PAIN 07/16/25 08:00 Potassium Chloride 100 ml @ 50 mls/hr Q2H IV 07/16/25 08:30 07/16/25 14:29 07/16/25 10:52 Enoxaparin Sodium (Lovenox) 80 mg Q12HR SC 07/16/25 22:00 UNV Review of Systems Constitutional: No symptom reported Ears, Nose, & Throat: No symptom reported Eyes: No symptom reported Neurological: No symptoms reported Pulmonary/Respiratory: Shortness of breath Cardiovascular: No symptom reported Gastrointestinal: No symptom reported Genitourinary: No symptom reported Musculoskeletal: No symptom reported Skin: No symptom reported Psychiatric: No symptom reported Endocrine: No symptom reported Hematologic/Lymphatic: No symptom reported Vital Signs Vital Signs Date Time Temp Pulse Resp B/P (MAP) Pulse Ox O2 Delivery O2 Flow Rate FiO2 07/16/25 11:30 86 26 99/63 (75) 98 07/16/25 07:25 97.8 97.8 07/16/25 07:25 Hi-Flow NC 11 N/A Physical Exam GENERAL: Alert and oriented x 3. No acute distress. EYES: PERRL, EOMI. Anicteric. HENT: Moist mucous membranes. LUNGS: Clear to auscultation bilaterally. CARDIOVASCULAR: Regular rate and rhythm. ABDOMEN: Soft, nontender and nondistended. EXTREMITIES: No edema. NEUROLOGIC: No focal neurological deficits. SKIN: Warm, dry. Labs/Diagnostic Data Labs Test 07/16/25 12:14 07/16/25 09:14 07/16/25 01:42 07/16/25 01:27 Range/Units Hemoglobin A1c 5.5 <5.7 % A1C Triglycerides Level 170 H < 150 mg/dL Cholesterol Level 90 < 200 mg/dL LDL Cholesterol 61 < 100 mg/dL HDL Cholesterol 20 L 40-59 mg/dL Thyroid Stimulating Hormone (TSH) 0.26 L 0.55-4.78 uIU/mL Blood Gas Specimen Type Venous Blood Gas Sample Site Vbg - n/a Blood Gas Patient Temperature 37.0 Arterial Blood Date Drawn [id number] Moises Test N/a Venous Blood pH 7.398 7.320-7.430 Venous Blood pCO2 at Patient Temp 35.9 L 38.0-54.0 mmHg Venous Blood pO2 at Patient Temp < 36.5 23.0-48.0 mmHg Venous Blood HCO3 21.6 L 22.0-29.0 mmol/L Venous Blood Base Excess -2.5 L -2.0-3.0 mmol/L Blood Gas Liter Flow 15.00 Blood Gas Modality Mask - nrb FiO2 % 100.0 White Blood Count 11.8 H 4.4-10.8 10^3/uL Red Blood Count 4.89 4.0-5.20 10^6/uL Hemoglobin 16.0 12.2-16.2 g/dL Hematocrit 47.6 H 36.0-46.0 % Mean Corpuscular Volume 97.5 80.0-100.0 fL Mean Corpuscular Hemoglobin 32.8 H 28.0-32.0 pg Mean Corpuscular Hemoglobin Concent 33.6 32.0-36.0 g/dL Red Cell Distribution Width 15.1 H 11.8-14.3 % Platelet Count 199 140-450 10^3/uL Mean Platelet Volume 9.8 6.9-10.8 fL Neutrophils (%) (Auto) 49.8 37.0-80.0 % Lymphocytes (%) (Auto) 39.0 10.0-50.0 % Monocytes (%) (Auto) 6.4 0.0-12.0 % Eosinophils (%) (Auto) 4.3 0.0-7.0 % Basophils (%) (Auto) 0.5 0.0-2.0 % Neutrophils # (Auto) 5.9 1.6-8.6 10 ^3/uL Lymphocytes # (Auto) 4.6 0.4-5.4 10 ^3/uL Monocytes # (Auto) 0.8 0-1.3 10 ^3/uL Eosinophils # (Auto) 0.5 0-0.8 10 ^3/uL Basophils # (Auto) 0.1 0-0.2 10 ^3/uL Nucleated Red Blood Cells 0.1 % Sodium Level 139 136-145 mmol/L Potassium Level 2.5 *L 3.5-5.1 mmol/L Chloride Level 98 98-107 mmol/L Carbon Dioxide Level 21 20-31 mmol/L Anion Gap 20 H 5-15 Blood Urea Nitrogen 14 9-23 mg/dL Creatinine 1.09 H 0.550-1.02 mg/dL Glomerular Filtration Rate Calc 58 >90 mL/min BUN/Creatinine Ratio 12.8 10.0-20.0 Serum Glucose 144 H 74-106 mg/dL Calcium Level 8.6 L 8.7-10.4 mg/dL Total Bilirubin 0.7 0.2-1.0 mg/dL Aspartate Amino Transferase (AST) 84 H 13-40 U/L Alanine Aminotransferase (ALT) 42 H 7-40 U/L Alkaline Phosphatase 184 H 46-116 U/L B-Type Natriuretic Peptide 1146.90 0-100 pg/mL Total Protein 7.5 5.7-8.2 g/dL Albumin 3.5 3.2-4.8 g/dL Assessment NSTEMI. Rule out structural heart disease. Tricuspid valve regurgitation. Septic shock vs cardiogenic, ?Mixed. Severe hypokalemia. Severe pulmonary hypertension. Pulmonary fibrosis on continuous home O2. Transaminitis. History of tobacco use. Remote history of drug use. Plan/Recommendation I agree with your ongoing assessment and care of plan. Patient has been seen by Marcia Eid NP on my behalf, her and I discussed the plan with the patient. Patient's case was discussed with me. I was able to obtain records from [facility] which discovered a recent echocardiogram in April which revealed right-sided heart failure with severe pulmonary hyperte nsion and tricuspid valve regurgitation. We will proceed with obtaining a transthoracic echocardiogram to evaluate cardiac function and check for wall motion abnormalities. Patient is currently on vasopressor therapy for hemodynamic support. Elevated troponin levels noted. Patient currently denies any chest pain, but became in with shortness of breath. Primary team ruling out pulmonary embolism. Elevated lactic acid level noted. Case also discussed with . No urgent need for coronary angiogram at this time. Initiate therapeutic Lovenox in the meantime. Plan for possible coronary angiogram in the next few days. Consider diuresis with stable potassium level. Monitor and replete electrolytes as needed. Continue with close cardiac surveillance. Further recommendations per clinical course and progression. Antibiotics per primary care team. Additional plan as per the hospital course. Plan discussed with: Patient NYHA Physical activity limitations: NA Date of Service: Jul 16, 2025 Billing Provider: SHANTEL ZAPATA MD Cardiology Common Codes: [id number] INP/OBS CARE (High) Cardiology Consultation Codes: [id number] CONSULT <45MIN SHANTEL ZAPATA MD Jul 16, 2025 13:01
[2025-07-16] MEDS: TREPROSTINIL 32 MCG IN SCH (23:16)
[2025-07-16] MEDS: MORPHINE SULFATE INJ 2 MG/ml SYRG IV ONE (23:29)
[2025-07-16] MEDS: ONDANSETRON HCL 4 MG/2 ML VIAL IV PRN (23:29)
[2025-07-17] VITALS (8 sets, daily range): BP systolic 90–113; BP diastolic 61–76; PULSE 69–96; RESP 18–32; TEMP 98.4; O2SAT 13–100
[2025-07-17] MEDS: VANCOMYCIN 500mg/100mL 100 ML IV SCH ×2 (03:50→04:15)
[2025-07-17 04:51] LABS: Hematocrit 42.3 % (36.0-46.0); Hemoglobin 14.4 g/dL (12.2-16.2); Mean Corpuscular Hemoglobin 33.1 pg (28.0-32.0); Mean Corpuscular Volume 97.0 fL (80.0-100.0); Nucleated Red Blood Cells % 0.2 %
[2025-07-17 04:55] LABS: Alanine Aminotransferase 32 U/L (7-40); Anion Gap 14 (5-15); BUN/Creatinine Ratio 14.8 (10.0-20.0); Blood Urea Nitrogen 13 mg/dL (9-23); Carbon Dioxide 24 mmol/L (20-31); Chloride 104 mmol/L (98-107); Glucose 92 mg/dL (74-106); Sodium 142 mmol/L (136-145); Total Protein 6.5 g/dL (5.7-8.2)
[2025-07-17 04:56] LABS: Bilirubin, Total 0.6 mg/dL (0.2-1.0)
[2025-07-17 05:07] LABS: Albumin 3.0 g/dL (3.2-4.8); Alkaline Phosphatase 137 U/L (46-116); Calcium 8.2 mg/dL (8.7-10.4); Potassium 3.2 mmol/L (3.5-5.1)
[2025-07-17] MEDS: LEVOTHYROXINE SODIUM 25 MCG TAB PO SCH (06:35)
[2025-07-17] MEDS: LEVOTHYROXINE SODIUM 100 MCG TAB PO SCH (06:35)
[2025-07-17] MEDS: IOHEXOL 350 MG/ML 100ML IJ ONE (07:31)
[2025-07-17] MEDS: DOBUTamine HCL 500 MG in D5W 5% 210 ML IV SCH (07:31)
[2025-07-17] MEDS: EPINEPHrine HCL INJECTION 8 MG in D5W 5% 242 ML IV SCH (07:32)
[2025-07-17] MEDS: PHENYLEPHRINE INJ 40 MG in SODIUM CHL 0.9% 246 ML IV SCH (07:32)
[2025-07-17] MEDS: BUDESONIDE (INHALATION) 0.5 MG/2 ML NEB NEB SCH (07:33)
--- NOTE | 2025-07-17 10:48 | DVHPN2 ---
Consult Progress Note Subjective Patient reports: Feels better Review of Systems: CVS:Normal (denies CP, Palpitations), RESPIRATORY:Abnormal (sob) Objective vital signs Vital Sign Date Time Temp Pulse Resp B/P (MAP) Pulse Ox O2 Delivery O2 Flow Rate FiO2 07/17/25 06:30 89 15 118/79 (92) 94 07/17/25 02:41 98.4 11.0 77 98.4 07/16/25 19:30 Oxymizer Total Intake and Output 07/16/25 07/16/25 07/17/25 15:00 23:00 07:00 Intake Total 350 ml 0 ml Balance 350 ml 0 ml medications Current Medications Medications Dose Ordered Sig/Lencho Route Start Time Stop Time Status Last Admin Dose Admin Norepinephrine Bitartrate 250 ml @ 3.75 mls/hr Q24H IV 07/16/25 04:45 07/17/25 05:27 7.5 MLS/HR Acetaminophen/ Hydrocodone Bitart 1 tab Q4HP PRN PO 07/16/25 08:00 07/16/25 10:09 1 TAB Ondansetron HCl 4 mg Q4HP PRN IV 07/16/25 08:00 07/16/25 23:29 4 MG Docusate Sodium 100 mg BIDPRN PRN PO 07/16/25 08:00 Acetaminophen 650 mg Q6HP PRN PO 07/16/25 08:00 Morphine Sulfate 2 mg Q4HPRN PRN IV 07/16/25 08:00 Nitroglycerin 0.4 mg Q5MINP PRN SL 07/16/25 08:00 Morphine Sulfate 2 mg Q30M PRN IV 07/16/25 08:00 Enoxaparin Sodium 80 mg Q12HR SC 07/16/25 22:00 07/17/25 09:59 80 MG Ceftriaxone Sodium 50 ml @ 100 mls/hr DAILY@09 IV 07/17/25 09:00 07/17/25 09:52 100 MLS/HR Vancomycin HCl 0 ml @ 0 mls/hr UD IV 07/16/25 13:30 Furosemide 40 mg DAILY IV 07/17/25 10:00 Atorvastatin Calcium 40 mg HS PO 07/16/25 22:00 Budesonide 0.25 mg BID NEB 07/16/25 22:00 Levothyroxine Sodium 100 mcg QAM@0600 PO 07/17/25 06:00 Sildenafil Citrate 20 mg TID PO 07/16/25 22:00 Patient Own Medication 32 DAILY@0900,1300,1700,2100 IN 07/16/25 17:00 Levothyroxine Sodium 25 mcg QAM@0600 PO 07/17/25 06:00 Dobutamine HCl/ Dextrose 500 mg/ Dextrose 250 ml @ 11.25 mls/ hr [id number] IV 07/16/25 15:30 Hold Phenylephrine HCl 40 mg/Sodium Chloride 250 ml @ 15 mls/hr [id number] IV 07/16/25 15:30 Hold Epinephrine HCl 8 mg/Dextrose 250 ml @ 3.75 mls/hr Q24H IV 07/16/25 15:30 Hold Vancomycin HCl 100 ml @ 100 mls/hr Q12H IV 07/17/25 04:15 07/17/25 04:15 100 MLS/HR Examination: LUNGS:Abnormal (oximizer NC) laboratory and microbiology Laboratory Tests 07/17/25 03:32 Test 07/17/25 03:32 Range/Units Serum Glucose 92 74-106 mg/dL Problem List/Assessment/Plan Problem List/Assessment/Plan Assessment NSTEMI Rule out structural heart disease Tricuspid valve regurgitation Septic shock vs cardiogenic, ?Mixed Severe hypokalemia Severe pulmonary hypertension Pulmonary fibrosis on continuous home O2 Transaminitis History of tobacco use Remote history of drug use Plan/Recommendation We will continue with the following plan/recommendations (Dr. Zavaleta): Case discussed with . Recent echocardiogram in April which revealed right-sided heart failure with severe pulmonary hypertension and tricuspid valve regurgitation. We will proceed with obtaining a transthoracic echocardiogram to evaluate cardiac function and check for wall motion abnormalities. Patient is currently on vasopressor therapy for hemodynamic support. Elevated troponin levels noted. Patient currently denies any chest pain, but became in with shortness of breath. CTA negative for PE. Elevated lactic acid level noted. Continue therapeutic Lovenox in the meantime times 48 hours. Medical records reviewed with the patient having coronary angiogram, LHC/RHC 04/2025 noting hypertensive coronary arteries with no obstructive CAD. RHC at that time shows RVSP pressures of 79 mmHg. Consider diuresis with stable potassium level. Monitor and replete electrolytes as needed. Continue with close cardiac surveillance. Further recommendations per clinical course and progression. Antibiotics per primary care team. Thank you for allowing us to care for this patient. Please call with any questions or concerns. Critical care time spent: 44 minutes This medical document was created using an electronic medical record system with voice recognition software and computerized dictation system. Although this document has been carefully reviewed, there might still be some phonetic and typographical errors. Occasional wrong-word or ``sound-alike substitutions may have occurred due to the inherent limitations of voice recognition software. These areas are purely typographical due to imperfections of the software programs and do not reflect any compromise in the patient's medical care. Please read the chart carefully and recognize, using context, where these substitutions have occurred. Plan discussed with: Patient Date of Service: Jul 17, 2025 Billing Provider: ASHOK PEÑA Common Visit Codes: [id number] INP/OBS CARE(HIGH), [id number] CARE 30-74 MIN ASHOK PEÑA Jul 17, 2025 10:48
[2025-07-17] MEDS: FUROSEMIDE 40 MG/4 ML VIAL IV SCH (11:00)
[2025-07-17 12:16] LABS: Base Excess -2.4 mmol/L (-2.0-3.0)
[2025-07-17 15:32] LABS: COVID19 ANTIGEN SOFIA FIA NEGATIVE (NEGATIVE)
--- NOTE | 2025-07-17 15:32 | DVHPN2 ---
Subjective The patient is seen and examined at bedside. The patient is on high-flow. Complain of shortness for breath. Reviewed: Care Plan, H&P, Labs, Medications, Previous Orders, Radiology Changes from previous H/P or p: No Changes Eyes: No Pain, No Vision change, No Conjunctivae inflammation, No Eyelid inflammation, No Other, No Redness ENT: No Ear pain, No Ear discharge, No Nose pain, No Nose discharge, No Nose congestion, No Mouth pain, No Mouth swelling, No Throat pain, No Throat swelling, No Other Cardiovascular: No Chest Pain, No Palpitations, No Orthopnea, No Paroxysmal Noc. Dyspnea, No Edema, No Lt Headedness, No Other Respiratory: No Cough, No Dry; Shortness of breath, SOB with excertion; No Wheezing, No Hemoptysis, No Pleuritic Pain, No Sputum, No Other Gastrointestinal: Nausea; No Vomiting, No Abdominal Pain, No Diarrhea, No Constipation, No Melena, No Hematochezia, No Other Genitourinary: No Dysuria, No Frequency, No Incontinence, No Hematuria, No Retention, No Other Musculoskeletal: No other, No neck pain, No shoulder pain, No arm pain, No back pain, No hand pain, No leg pain, No foot pain Skin: No Rash, No Lesions, No Jaundice, No Bruising, No Other Objective Vitals Vital Signs Date Time Temp Pulse Resp B/P (MAP) Pulse Ox O2 Delivery O2 Flow Rate FiO2 07/17/25 14:22 86 32 97 40.0 60 07/17/25 13:00 97.7 119/74 (89) 97.7 07/17/25 10:46 Non-Rebreather Intake/Output Intake and Output 07/17/25 07:00 Intake Total 350 ml Balance 350 ml Intake Oral 0 ml IV Total 350 ml # Voids 1 General Appearance: Alert, Oriented X3, Cooperative, mild distress HEENT: Atraumatic, PERRLA, EOMI, Mucous membr. moist/pink Neck: Supple Lungs: Clear to auscultation, Normal air movement Cardiovascular: Regular rate, Normal S1, Normal S2, No murmurs, Gallops, Rubs Abdomen: Normal bowel sounds, Soft, No tenderness Neuro: Cranial nerves 3-12 NL Psych/Mental Status: Mental status NL Medications Current Medications Medications Dose Ordered Sig/Lencho Route Start Time Stop Time Status Last Admin Dose Admin Norepinephrine Bitartrate 250 ml @ 3.75 mls/hr Q24H IV 07/16/25 04:45 07/17/25 05:27 7.5 MLS/HR Acetaminophen/ Hydrocodone Bitart 1 tab Q4HP PRN PO 07/16/25 08:00 07/16/25 10:09 1 TAB Ondansetron HCl 4 mg Q4HP PRN IV 07/16/25 08:00 07/16/25 23:29 4 MG Docusate Sodium 100 mg BIDPRN PRN PO 07/16/25 08:00 Acetaminophen 650 mg Q6HP PRN PO 07/16/25 08:00 Morphine Sulfate 2 mg Q4HPRN PRN IV 07/16/25 08:00 Nitroglycerin 0.4 mg Q5MINP PRN SL 07/16/25 08:00 Hold Morphine Sulfate 2 mg Q30M PRN IV 07/16/25 08:00 Enoxaparin Sodium 80 mg Q12HR SC 07/16/25 22:00 07/17/25 09:59 80 MG Ceftriaxone Sodium 50 ml @ 100 mls/hr DAILY@09 IV 07/17/25 09:00 07/17/25 09:52 100 MLS/HR Vancomycin HCl 0 ml @ 0 mls/hr UD IV 07/16/25 13:30 Furosemide 40 mg DAILY IV 07/17/25 10:00 07/17/25 11:00 40 MG Atorvastatin Calcium 40 mg HS PO 07/16/25 22:00 Budesonide 0.25 mg BID NEB 07/16/25 22:00 07/17/25 10:46 0.25 MG Levothyroxine Sodium 100 mcg QAM@0600 PO 07/17/25 06:00 Sildenafil Citrate 20 mg TID PO 07/16/25 22:00 Patient Own Medication 32 DAILY@0900,1300,1700,2100 IN 07/16/25 17:00 07/17/25 14:24 32 Levothyroxine Sodium 25 mcg QAM@0600 PO 07/17/25 06:00 Dobutamine HCl/ Dextrose 500 mg/ Dextrose 250 ml @ 11.25 mls/ hr [id number] IV 07/16/25 15:30 Hold Phenylephrine HCl 40 mg/Sodium Chloride 250 ml @ 15 mls/hr [id number] IV 07/16/25 15:30 Hold Epinephrine HCl 8 mg/Dextrose 250 ml @ 3.75 mls/hr Q24H IV 07/16/25 15:30 Hold Vancomycin HCl 100 ml @ 100 mls/hr Q12H IV 07/17/25 04:15 07/17/25 04:15 100 MLS/HR Laboratory Results Laboratory Tests 07/17/25 03:32 Chemistry Test 07/17/25 03:32 Albumin 3.0 g/dL (3.2-4.8) L Calcium Level 8.2 mg/dL (8.7-10.4) L Total Protein 6.5 g/dL (5.7-8.2) LFT Test 07/17/25 03:32 Alanine Aminotransferase (ALT) 32 U/L (7-40) Alkaline Phosphatase 137 U/L (46-116) H Aspartate Amino Transferase (AST) 67 U/L (13-40) H Total Bilirubin 0.6 mg/dL (0.2-1.0) Urinalysis Test 07/16/25 21:47 Urine Color Yellow (Yellow) Urine Clarity Clear (Clear) Urine pH 6.5 (5.0-9.0) Urine Specific [place] > 1.050 (1.001-1.035) Urine Protein Trace (Negative) H Urine Ketones 1+ (Negative) H Urine Blood Trace /uL (Negative) H Urine Nitrite Negative (Negative) Urine Bilirubin Negative (Negative) Urine Urobilinogen Normal mg/dL (Negative) Urine Leukocyte Esterase Negative /uL (Negative) Urine RBC 1 /hpf (0 - 4) Urine Microscopic WBC 6 /HPF (0-5) H Urine Squamous Epithelial Cells Few /hpf (<5) Urine Bacteria None seen /hpf (None Seen) Urine Glucose Normal mg/dL (Normal) Blood Gas Results Test 07/17/25 12:04 Arterial Blood pH 7.451 (7.350-7.450) FiO2 % 100.0 Microbiology Microbiology Date/Time Source Procedure Growth Status 07/16/25 01:40 Blood Blood Culture - Preliminary NO GROWTH AFTER 24 HOURS OF INCUBATION. Resulted Labs and/or images reviewed: Labs reviewed by me Assessment/Plan Assessment/Plan Acute hypoxic respiratory failure, Elevated troponin, R/O ACS, Possible cardiogenic shock, Lactic acidosis, R/O PE, Pulmonary hypertension, oxygen dependant, Influenza B positive Plan: Appreciate cardiology input Consider pulmonology consult for severe pulmonary hypertension, Vasopressors as needed, ECHO, A1c, lipid panel, TSH, D-Dimer, Bilateral lower extremity ultrasound, Consider CT angio of chest, IV antibiotics, Blood cultures, UA, Bilateral lower extremity ultrasound, CT angio of chest, Home medications reconciled, Tamiflu 75 mg p.o. b.i.d. Critical care spent for this case is 37 minute This medical document was created using an electronic medical record system with [employer] direct computerized dictation system. Although this document has been carefully reviewed, there may still be some phonetic and typographical errors. These areas are purely typographical due to imperfections of the software programs, and do not reflect any compromise in the patient's medical care. Plan discussed with: Patient My Orders Orders - TAMI PRINGLE MD Procedure Category Date Status Time Abg W/ Co-Ox RT 07/17/25 Logged 11:20 *Consult CONS 07/17/25 Transmitted / 14:00 Date of Service: Jul 17, 2025 Billing Provider: TAMI PRINGLE MD Common Visit Codes: [id number] INP/OBS CARE(HIGH) TAMI PRINGLE MD Jul 17, 2025 15:32
[2025-07-17] MEDS: OSELTAMIVIR 75 MG CAP PO SCH (21:36)
--- NOTE | 2025-07-17 23:17 | DVHPN2 ---
Consult Progress Note Subjective Patient reports: Feels better Review of Systems: CVS:Normal (denies CP, Palpitations), RESPIRATORY:Abnormal (sob) Other Systems: Patient was seen and evaluated in follow up. Patient complains of worsening SOB. Patient is on 11 L oxymizer. K 3.2, CA 8.2, AST 67. Objective vital signs Vital Sign Date Time Temp Pulse Resp B/P (MAP) Pulse Ox O2 Delivery O2 Flow Rate FiO2 07/17/25 11:00 105/47 07/17/25 10:50 94 22 90 07/17/25 10:46 Non-Rebreather 15 N/A 07/17/25 02:41 98.4 98.4 Total Intake and Output 07/16/25 07/16/25 07/17/25 15:00 23:00 07:00 Intake Total 350 ml 0 ml Balance 350 ml 0 ml medications Current Medications Medications Dose Ordered Sig/Lencho Route Start Time Stop Time Status Last Admin Dose Admin Norepinephrine Bitartrate 250 ml @ 3.75 mls/hr Q24H IV 07/16/25 04:45 07/17/25 05:27 7.5 MLS/HR Acetaminophen/ Hydrocodone Bitart 1 tab Q4HP PRN PO 07/16/25 08:00 07/16/25 10:09 1 TAB Ondansetron HCl 4 mg Q4HP PRN IV 07/16/25 08:00 07/16/25 23:29 4 MG Docusate Sodium 100 mg BIDPRN PRN PO 07/16/25 08:00 Acetaminophen 650 mg Q6HP PRN PO 07/16/25 08:00 Morphine Sulfate 2 mg Q4HPRN PRN IV 07/16/25 08:00 Nitroglycerin 0.4 mg Q5MINP PRN SL 07/16/25 08:00 Morphine Sulfate 2 mg Q30M PRN IV 07/16/25 08:00 Enoxaparin Sodium 80 mg Q12HR SC 07/16/25 22:00 07/17/25 09:59 80 MG Ceftriaxone Sodium 50 ml @ 100 mls/hr DAILY@09 IV 07/17/25 09:00 07/17/25 09:52 100 MLS/HR Vancomycin HCl 0 ml @ 0 mls/hr UD IV 07/16/25 13:30 Furosemide 40 mg DAILY IV 07/17/25 10:00 07/17/25 11:00 40 MG Atorvastatin Calcium 40 mg HS PO 07/16/25 22:00 Budesonide 0.25 mg BID NEB 07/16/25 22:00 07/17/25 10:46 0.25 MG Levothyroxine Sodium 100 mcg QAM@0600 PO 07/17/25 06:00 Sildenafil Citrate 20 mg TID PO 07/16/25 22:00 Patient Own Medication 32 DAILY@0900,1300,1700,2100 IN 07/16/25 17:00 Levothyroxine Sodium 25 mcg QAM@0600 PO 07/17/25 06:00 Dobutamine HCl/ Dextrose 500 mg/ Dextrose 250 ml @ 11.25 mls/ hr [id number] IV 07/16/25 15:30 Hold Phenylephrine HCl 40 mg/Sodium Chloride 250 ml @ 15 mls/hr [id number] IV 07/16/25 15:30 Hold Epinephrine HCl 8 mg/Dextrose 250 ml @ 3.75 mls/hr Q24H IV 07/16/25 15:30 Hold Vancomycin HCl 100 ml @ 100 mls/hr Q12H IV 07/17/25 04:15 07/17/25 04:15 100 MLS/HR Examination: GENERAL:Normal, HEENT:Normal, NECK:Normal, LUNGS:Abnormal (Decreased breath sounds ), CVS:Normal, ABDOMEN:Normal, MSK:Normal laboratory and microbiology Laboratory Tests 07/17/25 03:32 Test 07/17/25 03:32 Range/Units Serum Glucose 92 74-106 mg/dL Problem List/Assessment/Plan Problem List/Assessment/Plan Assessment NSTEMI. Rule out structural heart disease. Tricuspid valve regurgitation. Septic shock vs cardiogenic, ?Mixed. Severe hypokalemia. Severe pulmonary hypertension. Pulmonary fibrosis on continuous home O2. Transaminitis. History of tobacco use. Remote history of drug use. Plan/Recommendation Continued all current supportive medical care. Patient has been seen by Miguel Hodge NP on my behalf, him and I discussed the plan with the patient. Patient's case discussed was with me. Recent echocardiogram in April which revealed right-sided heart failure with severe pulmonary hypertension and tricuspid valve regurgitation. We will proceed with obtaining a transthoracic echocardiogram to evaluate cardiac function and check for wall motion abnormalities. Patient is currently on vasopressor therapy for hemodynamic support. Elevated troponin levels noted. Patient currently denies any chest pain, but became in with shortness of breath. CTA negative for PE. Elevated lactic acid level noted. Continue therapeutic Lovenox in the meantime times 48 hours. Medical records reviewed with the patient having coronary angiogram, LHC/RHC 04/2025 noting hypertensive coronary arteries with no obstructive CAD. RHC at that time shows RVSP pressures of 79 mmHg. Consider diuresis with stable potassium level. Monitor and replete electrolytes as needed. Continue with close cardiac surveillance. Further recommendations per clinical course and progression. Antibiotics per primary care team. Additional plan as per the hospital course. Plan discussed with: Patient Date of Service: Jul 17, 2025 Billing Provider: SHANTEL ZAPATA MD Cardiology Common Codes: [id number] [facility](High SHANTEL ZAPATA MD Jul 17, 2025 12:21
[2025-07-18] VITALS (10 sets, daily range): BP systolic 87–109; BP diastolic 58–73; PULSE 68–81; RESP 15–27; O2SAT 92–99
[2025-07-18 03:54] LABS: Hematocrit 39.0 % (36.0-46.0); Hemoglobin 13.4 g/dL (12.2-16.2); Mean Corpuscular Hemoglobin 33.3 pg (28.0-32.0); Mean Corpuscular Volume 96.6 fL (80.0-100.0); Nucleated Red Blood Cells % 0.0 %
[2025-07-18] MEDS: VANCOMYCIN 500mg/100mL 100 ML IV SCH (05:02)
--- NOTE | 2025-07-18 09:28 | DVHPN2 ---
Consult Progress Note Subjective Patient reports: Feels better Review of Systems: CVS:Normal (denies CP), RESPIRATORY:Abnormal (sob) Objective vital signs Vital Sign Date Time Temp Pulse Resp B/P (MAP) Pulse Ox O2 Delivery O2 Flow Rate FiO2 07/18/25 08:51 75 07/18/25 08:00 98.7 17 110/71 (84) 98 98.7 07/18/25 07:32 Hi-Flow Heated NC+ 30 50 50 Total Intake and Output 07/17/25 07/17/25 07/18/25 15:00 23:00 07:00 Intake Total 50 ml 100 ml Balance 50 ml 100 ml medications Current Medications Medications Dose Ordered Sig/Lencho Route Start Time Stop Time Status Last Admin Dose Admin Norepinephrine Bitartrate 250 ml @ 3.75 mls/hr Q24H IV 07/16/25 04:45 07/18/25 02:31 7.5 MLS/HR Acetaminophen/ Hydrocodone Bitart 1 tab Q4HP PRN PO 07/16/25 08:00 07/17/25 20:00 1 TAB Ondansetron HCl 4 mg Q4HP PRN IV 07/16/25 08:00 07/16/25 23:29 4 MG Docusate Sodium 100 mg BIDPRN PRN PO 07/16/25 08:00 Acetaminophen 650 mg Q6HP PRN PO 07/16/25 08:00 Morphine Sulfate 2 mg Q4HPRN PRN IV 07/16/25 08:00 Nitroglycerin 0.4 mg Q5MINP PRN SL 07/16/25 08:00 Hold Morphine Sulfate 2 mg Q30M PRN IV 07/16/25 08:00 Enoxaparin Sodium 80 mg Q12HR SC 07/16/25 22:00 07/17/25 21:36 80 MG Ceftriaxone Sodium 50 ml @ 100 mls/hr DAILY@09 IV 07/17/25 09:00 07/18/25 08:51 100 MLS/HR Vancomycin HCl 0 ml @ 0 mls/hr UD IV 07/16/25 13:30 Furosemide 40 mg DAILY IV 07/17/25 10:00 07/17/25 11:00 40 MG Atorvastatin Calcium 40 mg HS PO 07/16/25 22:00 07/17/25 21:36 40 MG Budesonide 0.25 mg BID NEB 07/16/25 22:00 07/17/25 19:11 0.25 MG Levothyroxine Sodium 100 mcg QAM@0600 PO 07/17/25 06:00 07/18/25 06:01 100 MCG Sildenafil Citrate 20 mg TID PO 07/16/25 22:00 Patient Own Medication 32 DAILY@0900,1300,1700,2100 IN 07/16/25 17:00 07/18/25 08:58 32 Levothyroxine Sodium 25 mcg QAM@0600 PO 07/17/25 06:00 07/18/25 06:01 25 MCG Dobutamine HCl/ Dextrose 500 mg/ Dextrose 250 ml @ 11.25 mls/ hr [id number] IV 07/16/25 15:30 Hold Phenylephrine HCl 40 mg/Sodium Chloride 250 ml @ 15 mls/hr [id number] IV 07/16/25 15:30 Hold Epinephrine HCl 8 mg/Dextrose 250 ml @ 3.75 mls/hr Q24H IV 07/16/25 15:30 Hold Oseltamivir Phosphate 75 mg Q12HR PO 07/17/25 22:00 07/22/25 21:59 07/17/25 21:36 75 MG Vancomycin HCl 100 ml @ 200 mls/hr Q12H IV 07/18/25 05:00 07/18/25 05:02 200 MLS/HR Examination: LUNGS:Abnormal (On HFNC at 50%, 30L/min) laboratory and microbiology Laboratory Tests 07/18/25 03:35 07/17/25 03:32 Test 07/17/25 03:32 Range/Units Serum Glucose 92 74-106 mg/dL Problem List/Assessment/Plan Problem List/Assessment/Plan Assessment NSTEMI Rule out structural heart disease Tricuspid valve regurgitation Septic shock vs cardiogenic, ?Mixed Severe hypokalemia Severe pulmonary hypertension Pulmonary fibrosis on continuous home O2 Transaminitis History of tobacco use Remote history of drug use Positive Influenza B Plan/Recommendation We will continue with the following plan/recommendations (Dr. Zavaleta): Case discussed with . Recent echocardiogram in April which revealed right-sided heart failure with severe pulmonary hypertension and tricuspid valve regurgitation. We will proceed with obtaining a transthoracic echocardiogram to evaluate cardiac function and check for wall motion abnormalities. Patient is currently on vasopressor therapy for hemodynamic support. Elevated troponin levels noted. Patient currently denies any chest pain, but became in with shortness of breath. CTA negative for PE. Elevated lactic acid level noted. Continue therapeutic Lovenox in the meantime times 48 hours. Medical records reviewed with the patient having coronary angiogram, C/RHC 04/2025 noting hypertensive coronary arteries with no obstructive CAD. RHC at that time shows RVSP pressures of 79 mmHg. Consider diuresis with stable potassium level. Monitor and replete electrolytes as needed. Positive Influenza B on tamiflu. Continue with close cardiac surveillance. Further recommendations per clinical course and progression. Antibiotics per primary care team. Thank you for allowing us to care for this patient. Please call with any questions or concerns. Critical care time spent: 40 minutes This medical document was created using an electronic medical record system with voice recognition software and computerized dictation system. Although this document has been carefully reviewed, there might still be some phonetic and typographical errors. Occasional wrong-word or ``sound-alike substitutions may have occurred due to the inherent limitations of voice recognition software. These areas are purely typographical due to imperfections of the software programs and do not reflect any compromise in the patient's medical care. Please read the chart carefully and recognize, using context, where these substitutions have occurred. Plan discussed with: Patient Date of Service: Jul 18, 2025 Billing Provider: ASHOK PEÑA Common Visit Codes: [id number] INP/OBS CARE(HIGH) ASHOK PEÑA Jul 18, 2025 09:28
--- NOTE | 2025-07-18 11:14 | DVHPN2 ---
Subjective The patient is seen and examined at bedside. The patient is on high-flow. Complain of shortness for breath. Reviewed: Care Plan, H&P, Labs, Medications, Previous Orders, Radiology Changes from previous H/P or p: No Changes Eyes: No Pain, No Vision change, No Conjunctivae inflammation, No Eyelid inflammation, No Other, No Redness ENT: No Ear pain, No Ear discharge, No Nose pain, No Nose discharge, No Nose congestion, No Mouth pain, No Mouth swelling, No Throat pain, No Throat swelling, No Other Cardiovascular: No Chest Pain, No Palpitations, No Orthopnea, No Paroxysmal Noc. Dyspnea, No Edema, No Lt Headedness, No Other Respiratory: No Cough, No Dry; Shortness of breath, SOB with excertion; No Wheezing, No Hemoptysis, No Pleuritic Pain, No Sputum, No Other Gastrointestinal: Nausea; No Vomiting, No Abdominal Pain, No Diarrhea, No Constipation, No Melena, No Hematochezia, No Other Genitourinary: No Dysuria, No Frequency, No Incontinence, No Hematuria, No Retention, No Other Musculoskeletal: No other, No neck pain, No shoulder pain, No arm pain, No back pain, No hand pain, No leg pain, No foot pain Skin: No Rash, No Lesions, No Jaundice, No Bruising, No Other Objective Vitals Vital Signs Date Time Temp Pulse Resp B/P (MAP) Pulse Ox O2 Delivery O2 Flow Rate FiO2 07/18/25 10:30 69 19 104/68 (80) 95 07/18/25 10:02 35.0 40 07/18/25 08:00 98.7 98.7 07/18/25 07:32 Hi-Flow Heated NC+ Intake/Output Intake and Output 07/18/25 07:00 Intake Total 150 ml Balance 150 ml IV Total 150 ml General Appearance: Alert, Oriented X3, Cooperative, mild distress HEENT: Atraumatic, PERRLA, EOMI, Mucous membr. moist/pink Neck: Supple Lungs: Clear to auscultation, Normal air movement Cardiovascular: Regular rate, Normal S1, Normal S2, No murmurs, Gallops, Rubs Abdomen: Normal bowel sounds, Soft, No tenderness Neuro: Cranial nerves 3-12 NL Psych/Mental Status: Mental status NL Medications Current Medications Medications Dose Ordered Sig/Lencho Route Start Time Stop Time Status Last Admin Dose Admin Norepinephrine Bitartrate 250 ml @ 3.75 mls/hr Q24H IV 07/16/25 04:45 07/18/25 02:31 7.5 MLS/HR Acetaminophen/ Hydrocodone Bitart 1 tab Q4HP PRN PO 07/16/25 08:00 07/17/25 20:00 1 TAB Ondansetron HCl 4 mg Q4HP PRN IV 07/16/25 08:00 07/16/25 23:29 4 MG Docusate Sodium 100 mg BIDPRN PRN PO 07/16/25 08:00 Acetaminophen 650 mg Q6HP PRN PO 07/16/25 08:00 Morphine Sulfate 2 mg Q4HPRN PRN IV 07/16/25 08:00 Nitroglycerin 0.4 mg Q5MINP PRN SL 07/16/25 08:00 Hold Morphine Sulfate 2 mg Q30M PRN IV 07/16/25 08:00 Enoxaparin Sodium 80 mg Q12HR SC 07/16/25 22:00 07/18/25 10:12 80 MG Ceftriaxone Sodium 50 ml @ 100 mls/hr DAILY@09 IV 07/17/25 09:00 07/18/25 08:51 100 MLS/HR Vancomycin HCl 0 ml @ 0 mls/hr UD IV 07/16/25 13:30 Furosemide 40 mg DAILY IV 07/17/25 10:00 07/17/25 11:00 40 MG Atorvastatin Calcium 40 mg HS PO 07/16/25 22:00 07/17/25 21:36 40 MG Budesonide 0.25 mg BID NEB 07/16/25 22:00 07/18/25 10:01 0.25 MG Levothyroxine Sodium 100 mcg QAM@0600 PO 07/17/25 06:00 07/18/25 06:01 100 MCG Sildenafil Citrate 20 mg TID PO 07/16/25 22:00 Patient Own Medication 32 DAILY@0900,1300,1700,2100 IN 07/16/25 17:00 07/18/25 08:58 32 Levothyroxine Sodium 25 mcg QAM@0600 PO 07/17/25 06:00 07/18/25 06:01 25 MCG Dobutamine HCl/ Dextrose 500 mg/ Dextrose 250 ml @ 11.25 mls/ hr [id number] IV 07/16/25 15:30 Hold Phenylephrine HCl 40 mg/Sodium Chloride 250 ml @ 15 mls/hr [id number] IV 07/16/25 15:30 Hold Epinephrine HCl 8 mg/Dextrose 250 ml @ 3.75 mls/hr Q24H IV 07/16/25 15:30 Hold Oseltamivir Phosphate 75 mg Q12HR PO 07/17/25 22:00 07/22/25 21:59 07/18/25 10:12 75 MG Vancomycin HCl 100 ml @ 200 mls/hr Q12H IV 07/18/25 05:00 07/18/25 05:02 200 MLS/HR Laboratory Results Laboratory Tests 07/17/25 03:32 07/18/25 03:35 Urinalysis Test 07/16/25 21:47 Urine Color Yellow (Yellow) Urine Clarity Clear (Clear) Urine pH 6.5 (5.0-9.0) Urine Specific [place] > 1.050 (1.001-1.035) Urine Protein Trace (Negative) H Urine Ketones 1+ (Negative) H Urine Blood Trace /uL (Negative) H Urine Nitrite Negative (Negative) Urine Bilirubin Negative (Negative) Urine Urobilinogen Normal mg/dL (Negative) Urine Leukocyte Esterase Negative /uL (Negative) Urine RBC 1 /hpf (0 - 4) Urine Microscopic WBC 6 /HPF (0-5) H Urine Squamous Epithelial Cells Few /hpf (<5) Urine Bacteria None seen /hpf (None Seen) Urine Glucose Normal mg/dL (Normal) Blood Gas Results Test 07/17/25 12:04 Arterial Blood pH 7.451 (7.350-7.450) FiO2 % 100.0 Microbiology Microbiology Date/Time Source Procedure Growth Status 07/16/25 01:40 Blood Blood Culture - Preliminary NO GROWTH AFTER 48 HOURS OF INCUBATION. Resulted Assessment/Plan Assessment/Plan Acute hypoxic respiratory failure, on high-flow oxygen Elevated troponin, R/O ACS, Possible cardiogenic shock, Lactic acidosis, R/O PE, Pulmonary hypertension, oxygen dependant, Influenza B positive Plan: Appreciate cardiology input Consider pulmonology consult for severe pulmonary hypertension, Vasopressors as needed, ECHO, A1c, lipid panel, TSH, D-Dimer, Bilateral lower extremity ultrasound, Consider CT angio of chest, IV antibiotics, Blood cultures, UA, Bilateral lower extremity ultrasound, CT angio of chest, Home medications reconciled, Tamiflu 75 mg p.o. b.i.d. Continuing to try to wean the patient off high-flow oxygen if possible Critical care spent for this case is 37 minute This medical document was created using an electronic medical record system with [place] computerized dictation system. Although this document has been carefully reviewed, there may still be some phonetic and typographical errors. These areas are purely typographical due to imperfections of the software programs, and do not reflect any compromise in the patient's medical care. Plan discussed with: Patient My Orders Orders - TAMI PRINGLE MD Procedure Category Date Status Time Abg W/ Co-Ox RT 07/17/25 Logged 11:20 *Consult CONS 07/17/25 Transmitted / 14:00 Oseltamivir 75mg PHA 07/17/25 In Process Capsule (Tamiflu 75mg 22:00 Insert Barbour Catheter PRANAV 07/17/25 In Process 18:53 Oxygen By High-Flow RT 07/18/25 Transmitted 05:19 Date of Service: Jul 18, 2025 Billing Provider: TAMI PRINGLE MD Common Visit Codes: [id number] CARE 30-74 MIN TAMI PRINGLE MD Jul 18, 2025 11:14
--- NOTE | 2025-07-18 12:29 | DVHINCON2 ---
Date of service: Jul 17, [address] Green Reason for Consultation Acute respiratory failure History of Present Illness History Source: Patient Exam Limitations: No limitations HPI Patient is a 60-year old lady with a history of pulmonary fibrosis on home oxygen who presented with worsening shortness of breath. Was seen in the emergency room where she tested positive for influenza B and was started on Tamiflu course. Patient was also found to be hypotensive requiring pressors and she was admitted for further workup. Pulmonology was consulted to assist in management. Home Meds Reported Medications Atorvastatin Calcium (ATORVASTATIN CALCIUM) 40 Mg Tab, 1 TAB PO QPM, #90 TAB 3 Refills 07/16/25 Treprostinil (Tyvaso [facility]) 32 Mcg Pow, 32 MCG IN Q4HR, POW 07/16/25 Sildenafil Citrate (Sildenafil Citrate) 100 Mg Tab, 20 MG PO TID, TAB 07/16/25 Furosemide (Furosemide) 40 Mg Tab, 1 TAB PO BID, #30 TAB 5 Refills 07/16/25 Budesonide (Inhalation) (Budesonide) 0.25 Mg/2 Ml [place], 0.25 MG IN BID, ML 07/16/25 Levothyroxine Sodium (Levothyroxine Sodium) 125 Mcg Tab, 1 TAB PO DAILY, #30 TAB 5 Refills 07/16/25 Past Medical History Cardiac: No pertinent Hx Pulmonary: Pulmonary fibrosis Central Nervous System: No pertinent Hx GI: No pertinent Hx Hemotology/Oncology: No pertinent Hx Hepatobiliary: No pertinent Hx Psychiatric: No pertinent Hx Musculoskeletal: No pertinent Hx Rheumotologic: No pertinent Hx Infectious Disease: No peritnent Hx ENT: No pertinent Hx Renal/: No pertinent Hx Endocrine: No pertinent Hx Dermatology: No pertinent Hx Past Surgical History: No pertinent Hx Family History: No pertinent Hx Smoker: No Hx (Negative) Alocohol: None Drugs: None Lives with: With family Domestic Violence: Neg Review of Systems Constitutional: No symptom reported Ears, Nose, & Throat: No symptom reported Eyes: No symptom reported Pulmonary/Respiratory: Dyspnea Cardiovascular: No symptom reported Gastrointestinal: No symptom reported Genitourinary: No symptom reported Musculoskeletal: No symptom reported Skin: No symptom reported Psychiatric: No symptom reported Endocrine: No symptom reported Hemotologic/Lymphatic: No symptom reported H&P Exam Vital Signs Vital Signs Date Time Temp Pulse Resp B/P (MAP) Pulse Ox O2 Delivery O2 Flow Rate FiO2 07/18/25 10:30 69 19 104/68 (80) 95 07/18/25 10:02 35.0 40 07/18/25 08:00 98.7 98.7 07/18/25 07:32 Hi-Flow Heated NC+ General Appeara: Well developed, Well nourished, Normal Appearance Head Exam: Normal inspection Neck Exam: Normal inspection, Non-tender, Normal alignment Eye Exam: bilateral eye Normal inspection, bilateral eye PERRL, bilateral eye EOMI Ear Exam: bilateral ear Auricle normal, bilateral ear Canal normal, bilateral ear TM normal Nasal Exam: Normal inspection Mouth: Normal Inspection Pulmonary/Respiratory: Decreased breath sounds Cardiovascular/Chest: Normal inspection Peripheral Pulses: 4+ Radial (R), 4+ Radial (L), 4+ Brachial (R), 4+ Brachial (L) Abdominal Exam: Normal bowel sounds Labs/Xrays Labs Test 07/18/25 03:35 07/17/25 12:04 07/17/25 03:32 07/17/25 00:00 Range/Units White Blood Count 9.1 4.4-10.8 10^3/uL Red Blood Count 4.04 4.0-5.20 10^6/uL Hemoglobin 13.4 12.2-16.2 g/dL Hematocrit 39.0 36.0-46.0 % Mean Corpuscular Volume 96.6 80.0-100.0 fL Mean Corpuscular Hemoglobin 33.3 H 28.0-32.0 pg Mean Corpuscular Hemoglobin Concent 34.4 32.0-36.0 g/dL Red Cell Distribution Width 15.5 H 11.8-14.3 % Platelet Count 166 140-450 10^3/uL Mean Platelet Volume 8.8 6.9-10.8 fL Neutrophils (%) (Auto) 49.9 37.0-80.0 % Lymphocytes (%) (Auto) 32.2 10.0-50.0 % Monocytes (%) (Auto) 7.9 0.0-12.0 % Eosinophils (%) (Auto) 9.2 H 0.0-7.0 % Basophils (%) (Auto) 0.8 0.0-2.0 % Neutrophils # (Auto) 4.5 1.6-8.6 10 ^3/uL Lymphocytes # (Auto) 2.9 0.4-5.4 10 ^3/uL Monocytes # (Auto) 0.7 0-1.3 10 ^3/uL Eosinophils # (Auto) 0.8 0-0.8 10 ^3/uL Basophils # (Auto) 0.1 0-0.2 10 ^3/uL Nucleated Red Blood Cells 0.0 % Creatinine 0.66 0.550-1.02 mg/dL Glomerular Filtration Rate Calc 100 >90 mL/min Blood Gas Specimen Type Arterial Blood Gas Sample Site Left radial Blood Gas Patient Temperature 37.0 Arterial Blood Date Drawn [id number] Arterial Blood pH 7.451 H 7.350-7.450 Arterial Blood Partial Pressure CO2 29.9 L 32.0-45.0 mmHg Arterial Blood Partial Pressure O2 73.2 L 83.0-108.0 mmHg Arterial Blood HCO3 20.4 L 21.0-28.0 mmol/L Arterial Blood Oxygen Saturation 94.3 94.0-98.0 % Arterial Blood Base Excess -2.4 L -2.0-3.0 mmol/L Arterial Blood Oxyhemoglobin 92.9 L 94.0-98.0 % Arterial Blood Carboxyhemoglobin 0.7 0.5-1.5 % Arterial Blood Methemoglobin 0.8 0.0-1.5 % Moises Test Yes Blood Gas Total Hemoglobin 14.80 12.0-16.0 g/dL Blood Gas Modality Mask - nrb FiO2 % 100.0 Sodium Level 142 136-145 mmol/L Potassium Level 3.2 L 3.5-5.1 mmol/L Chloride Level 104 98-107 mmol/L Carbon Dioxide Level 24 20-31 mmol/L Anion Gap 14 5-15 Blood Urea Nitrogen 13 9-23 mg/dL BUN/Creatinine Ratio 14.8 10.0-20.0 Serum Glucose 92 74-106 mg/dL Calcium Level 8.2 L 8.7-10.4 mg/dL Total Bilirubin 0.6 0.2-1.0 mg/dL Aspartate Amino Transferase (AST) 67 H 13-40 U/L Alanine Aminotransferase (ALT) 32 7-40 U/L Alkaline Phosphatase 137 H 46-116 U/L Total Protein 6.5 5.7-8.2 g/dL Albumin 3.0 L 3.2-4.8 g/dL Influenza Type A Antigen Negative Negative Influenza Type B Antigen Positive Negative SARS-CoV-2 Antigen (Rapid) Negative NEGATIVE Test 07/16/25 21:47 07/16/25 18:34 07/16/25 12:14 07/16/25 09:14 Range/Units Urine Color Yellow Yellow Urine Clarity Clear Clear Urine pH 6.5 5.0-9.0 Urine Specific [place] > 1.050 H 1.001-1.035 Urine Protein Trace H Negative Urine Ketones 1+ H Negative Urine Blood Trace H Negative /uL Urine Nitrite Negative Negative Urine Bilirubin Negative Negative Urine Urobilinogen Normal Negative mg/dL Urine Leukocyte Esterase Negative Negative /uL Urine RBC 1 0 - 4 /hpf Urine Microscopic WBC 6 H 0-5 /HPF Urine Squamous Epithelial Cells Few <5 /hpf Urine Bacteria None seen None Seen /hpf Urine Glucose Normal Normal mg/dL Troponin I High Sensitivity 1963 *H </=34 ng/L Prothrombin Time 12.1 H 9.3-11.8 sec Prothrombin Time INR 1.16 H 0.9-1.15 Activated Partial Thromboplast Time 28.7 24.5-34.5 SEC D-Dimer, Quantitative 1.61 H 0.0-0.49 mg/L FEU Lactic Acid Level 2.0 0.4-2.0 mmol/L Hemoglobin A1c 5.5 <5.7 % A1C Triglycerides Level 170 H < 150 mg/dL Cholesterol Level 90 < 200 mg/dL LDL Cholesterol 61 < 100 mg/dL HDL Cholesterol 20 L 40-59 mg/dL Thyroid Stimulating Hormone (TSH) 0.26 L 0.55-4.78 uIU/mL Test 07/16/25 01:42 07/16/25 01:27 Range/Units Venous Blood pH 7.398 7.320-7.430 Venous Blood pCO2 at Patient Temp 35.9 L 38.0-54.0 mmHg Venous Blood pO2 at Patient Temp < 36.5 23.0-48.0 mmHg Venous Blood HCO3 21.6 L 22.0-29.0 mmol/L Venous Blood Base Excess -2.5 L -2.0-3.0 mmol/L Blood Gas Liter Flow 15.00 B-Type Natriuretic Peptide 1146.90 0-100 pg/mL Microbiology Date/Time Source Procedure Growth Status 07/16/25 01:40 Blood Blood Culture - Preliminary NO GROWTH AFTER 48 HOURS OF INCUBATION. Resulted Assessment/Plan Plan Impression Acute hypoxemic respiratory failure Pulmonary hypertension Influenza pneumonia Pulmonary fibrosis Shock Patient seen and examined in the ER Events Low oxygen requirements On 2 liters nasal cannula On pressors for hemodynamic support Labs and imaging reviewed CTA of the chest shows no evidence of pulmonary embolism Honeycombing present from underlying lung disease Bronchiectasis Management Supplemental oxygen Titrate to maintain sats 90% or above Incentive spirometry Antibiotics Obtain cultures Bronchodilators Tamiflu course- recommend 5 days of treatment Monitor renal function Monitor electrolytes Supplement as needed Continue Sildenafil for pulmonary hypertension Pressors as needed for hemodynamic support To maintain a mean arterial pressure of 65 mmHg DVT prophylaxis Critical care time 35 minutes Plan discussed with: Patient HO COELHO MD Jul 18, 2025 12:29
--- NOTE | 2025-07-18 12:32 | DVHPN2 ---
Progress Note - Dictate Date Seen: Jul 18, 2025 Medical Necessity Reason Pt with a Central, PICC or Fol: Yes The following are medically ne: Barbour Catheter vital signs Vital Sign Date Time Temp Pulse Resp B/P (MAP) Pulse Ox O2 Delivery O2 Flow Rate FiO2 07/18/25 10:30 69 19 104/68 (80) 95 07/18/25 10:02 35.0 40 07/18/25 08:00 98.7 98.7 07/18/25 07:32 Hi-Flow Heated NC+ Total Intake and Output 07/17/25 07/17/25 07/18/25 15:00 23:00 07:00 Intake Total 50 ml 100 ml Balance 50 ml 100 ml medications Current Medications Medications Dose Ordered Sig/Lencho Route Start Time Stop Time Status Last Admin Dose Admin Norepinephrine Bitartrate 250 ml @ 3.75 mls/hr Q24H IV 07/16/25 04:45 07/18/25 02:31 7.5 MLS/HR Acetaminophen/ Hydrocodone Bitart 1 tab Q4HP PRN PO 07/16/25 08:00 07/17/25 20:00 1 TAB Ondansetron HCl 4 mg Q4HP PRN IV 07/16/25 08:00 07/16/25 23:29 4 MG Docusate Sodium 100 mg BIDPRN PRN PO 07/16/25 08:00 Acetaminophen 650 mg Q6HP PRN PO 07/16/25 08:00 Morphine Sulfate 2 mg Q4HPRN PRN IV 07/16/25 08:00 Nitroglycerin 0.4 mg Q5MINP PRN SL 07/16/25 08:00 Hold Morphine Sulfate 2 mg Q30M PRN IV 07/16/25 08:00 Enoxaparin Sodium 80 mg Q12HR SC 07/16/25 22:00 07/18/25 10:12 80 MG Ceftriaxone Sodium 50 ml @ 100 mls/hr DAILY@09 IV 07/17/25 09:00 07/18/25 08:51 100 MLS/HR Vancomycin HCl 0 ml @ 0 mls/hr UD IV 07/16/25 13:30 Furosemide 40 mg DAILY IV 07/17/25 10:00 07/17/25 11:00 40 MG Atorvastatin Calcium 40 mg HS PO 07/16/25 22:00 07/17/25 21:36 40 MG Budesonide 0.25 mg BID NEB 07/16/25 22:00 07/18/25 10:01 0.25 MG Levothyroxine Sodium 100 mcg QAM@0600 PO 07/17/25 06:00 07/18/25 06:01 100 MCG Sildenafil Citrate 20 mg TID PO 07/16/25 22:00 Patient Own Medication 32 DAILY@0900,1300,1700,2100 IN 07/16/25 17:00 07/18/25 08:58 32 Levothyroxine Sodium 25 mcg QAM@0600 PO 07/17/25 06:00 07/18/25 06:01 25 MCG Dobutamine HCl/ Dextrose 500 mg/ Dextrose 250 ml @ 11.25 mls/ hr [id number] IV 07/16/25 15:30 Hold Phenylephrine HCl 40 mg/Sodium Chloride 250 ml @ 15 mls/hr [id number] IV 07/16/25 15:30 Hold Epinephrine HCl 8 mg/Dextrose 250 ml @ 3.75 mls/hr Q24H IV 07/16/25 15:30 Hold Oseltamivir Phosphate 75 mg Q12HR PO 07/17/25 22:00 07/22/25 21:59 07/18/25 10:12 75 MG Vancomycin HCl 100 ml @ 200 mls/hr Q12H IV 07/18/25 05:00 07/18/25 05:02 200 MLS/HR laboratory and microbiology Laboratory Tests 07/18/25 03:35 07/17/25 03:32 Test 07/17/25 03:32 Range/Units Serum Glucose 92 74-106 mg/dL Assessment/Plan Impression Acute hypoxemic respiratory failure Pulmonary hypertension Influenza pneumonia Pulmonary fibrosis Shock Patient seen and examined in the ER Events Low oxygen requirements On 2 liters nasal cannula Remains on Levophed drip for hemodynamic support Labs and imaging reviewed CTA of the chest shows no evidence of pulmonary embolism Honeycombing present from underlying lung disease and bronchiectasis Management Supplemental oxygen Titrate to maintain sats 90% or above Incentive spirometry Continue antibiotics F/u cultures Bronchodilators Tamiflu course- recommend 5 days of treatment Steroids- Solumedrol 40mg IV TID Monitor renal function Monitor electrolytes Supplement as needed Continue Sildenafil for pulmonary hypertension Pressors as needed for hemodynamic support To maintain a mean arterial pressure of 65 mmHg DVT prophylaxis Critical care time 35 minutes Plan discussed with: Patient HO COELHO MD Jul 18, 2025 12:32
[2025-07-18] MEDS: POTASSIUM CHL 20 Meq TABLET PO ONE (12:33)
--- NOTE | 2025-07-18 13:44 | DVH ---
Upper Extremity Venous Duplex Clinical History: R/O DVT Comparison: None Technique: Duplex Doppler evaluation of the venous system of the RIGHT lower neck and upper extremity including color Doppler and spectral/pulsed waveform analysis was performed. Findings: The internal jugular vein demonstrates appropriate compressibility and waveform variability. The subclavian vein is patent on color Doppler evaluation without intraluminal thrombus and demonstra viridiana waveform variability. The visualized portion of the brachiocephalic vein is patent on color Doppler evaluation without intr aluminal thrombus and demonstrates waveform variability. The axillary vein demonstrates appropriate compressibility and waveform variability. The brachial veins demonstrate appropriate compressibility and patency on Doppler evaluation. The basilic vein demonstrates occlusion. The cephalic vein demonstrates occlusion. Impression: 1. Occlusive thrombus in the right basilic and cephalic veins (SVTs). 2. No occlusive deep vein thrombosis.
[2025-07-18] MEDS: methylPREDNISolone SOD SUCC 40 MG/ML VL IV SCH (14:08)
--- NOTE | 2025-07-18 22:28 | DVHPN2 ---
Consult Progress Note Subjective Patient reports: Feels better Review of Systems: CVS:Normal (denies CP), RESPIRATORY:Abnormal (sob) Other Systems: Patient was seen and evaluated in follow up. Patient is complaining of SOB. She is on 30L high flow heated NC. Objective vital signs Vital Sign Date Time Temp Pulse Resp B/P (MAP) Pulse Ox O2 Delivery O2 Flow Rate FiO2 07/18/25 13:02 77 20 95 Hi-Flow Heated NC+ 30 40 40 07/18/25 13:02 97.8 102/74 (83) 97.8 Total Intake and Output 07/17/25 07/17/25 07/18/25 15:00 23:00 07:00 Intake Total 50 ml 100 ml Balance 50 ml 100 ml medications Current Medications Medications Dose Ordered Sig/Lencho Route Start Time Stop Time Status Last Admin Dose Admin Norepinephrine Bitartrate 250 ml @ 3.75 mls/hr Q24H IV 07/16/25 04:45 07/18/25 02:31 7.5 MLS/HR Acetaminophen/ Hydrocodone Bitart 1 tab Q4HP PRN PO 07/16/25 08:00 07/17/25 20:00 1 TAB Ondansetron HCl 4 mg Q4HP PRN IV 07/16/25 08:00 07/16/25 23:29 4 MG Docusate Sodium 100 mg BIDPRN PRN PO 07/16/25 08:00 Acetaminophen 650 mg Q6HP PRN PO 07/16/25 08:00 Morphine Sulfate 2 mg Q4HPRN PRN IV 07/16/25 08:00 Nitroglycerin 0.4 mg Q5MINP PRN SL 07/16/25 08:00 Hold Morphine Sulfate 2 mg Q30M PRN IV 07/16/25 08:00 Enoxaparin Sodium 80 mg Q12HR SC 07/16/25 22:00 07/18/25 10:12 80 MG Ceftriaxone Sodium 50 ml @ 100 mls/hr DAILY@09 IV 07/17/25 09:00 07/18/25 08:51 100 MLS/HR Vancomycin HCl 0 ml @ 0 mls/hr UD IV 07/16/25 13:30 Furosemide 40 mg DAILY IV 07/17/25 10:00 07/18/25 12:31 40 MG Atorvastatin Calcium 40 mg HS PO 07/16/25 22:00 07/17/25 21:36 40 MG Budesonide 0.25 mg BID NEB 07/16/25 22:00 07/18/25 10:01 0.25 MG Levothyroxine Sodium 100 mcg QAM@0600 PO 07/17/25 06:00 07/18/25 06:01 100 MCG Sildenafil Citrate 20 mg TID PO 07/16/25 22:00 Patient Own Medication 32 DAILY@0900,1300,1700,2100 IN 07/16/25 17:00 07/18/25 12:40 32 Levothyroxine Sodium 25 mcg QAM@0600 PO 07/17/25 06:00 07/18/25 06:01 25 MCG Dobutamine HCl/ Dextrose 500 mg/ Dextrose 250 ml @ 11.25 mls/ hr [id number] IV 07/16/25 15:30 Hold Phenylephrine HCl 40 mg/Sodium Chloride 250 ml @ 15 mls/hr [id number] IV 07/16/25 15:30 Hold Epinephrine HCl 8 mg/Dextrose 250 ml @ 3.75 mls/hr Q24H IV 07/16/25 15:30 Hold Oseltamivir Phosphate 75 mg Q12HR PO 07/17/25 22:00 07/22/25 21:59 07/18/25 10:12 75 MG Vancomycin HCl 100 ml @ 200 mls/hr Q12H IV 07/18/25 05:00 07/18/25 05:02 200 MLS/HR Methylprednisolone Sodium Succinate 40 mg Q8HR IV 07/18/25 14:00 Examination: LUNGS:Abnormal (On HFNC at 50%, 30L/min) laboratory and microbiology Laboratory Tests 07/18/25 03:35 07/17/25 03:32 Test 07/17/25 03:32 Range/Units Serum Glucose 92 74-106 mg/dL Problem List/Assessment/Plan Problem List/Assessment/Plan Assessment NSTEMI. Rule out structural heart disease. Tricuspid valve regurgitation. Septic shock vs cardiogenic, ?Mixed. Severe hypokalemia. Severe pulmonary hypertension. Pulmonary fibrosis on continuous home O2. Transaminitis. History of tobacco use. Remote history of drug use. Positive Influenza B. Plan/Recommendation Continued all current supportive medical care. Patient has been seen by Miguel Hodge NP on my behalf, him and I discussed the plan with the patient. Patient's case was discussed with me. Recent echocardiogram in April which revealed right-sided heart failure with severe pulmonary hypertension and tricuspid valve regurgitation. We will proceed with obtaining a transthoracic echocardiogram to evaluate cardiac function and check for wall motion abnormalities. Patient is currently on vasopressor therapy for hemodynamic support. Elevated troponin levels noted. Patient currently denies any chest pain, but became in with shortness of breath. CTA negative for PE. Elevated lactic acid level noted. Continue therapeutic Lovenox in the meantime times 48 hours. Medical records reviewed with the patient having coronary angiogram, LHC/RHC 04/2025 noting hypertensive coronary arteries with no obstructive CAD. RHC at that time shows RVSP pressures of 79 mmHg. Consider diuresis with stable potassium level. Monitor and replete electrolytes as needed. Positive Influenza B on tamiflu. Continue with close cardiac surveillance. Further recommendations per clinical course and progression. Antibiotics per primary care team. Additional plan as per the hospital course. Plan discussed with: Patient Date of Service: Jul 18, 2025 Billing Provider: SHANTEL ZAPATA MD Cardiology Common Codes: [id number] HOSP CARE(High SHANTEL ZAPATA MD Jul 18, 2025 13:24
[2025-07-18] MEDS: DOCUSATE SOD 100 MG CAP PO PRN (22:31)
[2025-07-19] VITALS (9 sets, daily range): BP systolic 90–130; BP diastolic 54–89; PULSE 62–83; RESP 14–22; O2SAT 92–98
[2025-07-19 04:13] LABS: Hematocrit 40.0 % (36.0-46.0); Hemoglobin 13.7 g/dL (12.2-16.2); Mean Corpuscular Hemoglobin 33.2 pg (28.0-32.0); Mean Corpuscular Volume 96.7 fL (80.0-100.0); Nucleated Red Blood Cells % 0.2 %
[2025-07-19 04:15] LABS: Anion Gap 9 (5-15); Carbon Dioxide 25 mmol/L (20-31); Chloride 103 mmol/L (98-107); Potassium 4.0 mmol/L (3.5-5.1); Sodium 137 mmol/L (136-145)
[2025-07-19 04:19] LABS: Calcium 8.1 mg/dL (8.7-10.4)
[2025-07-19 04:21] LABS: BUN/Creatinine Ratio 12.5 (10.0-20.0)
[2025-07-19 04:23] LABS: Blood Urea Nitrogen 9 mg/dL (9-23); Glucose 135 mg/dL (74-106)
[2025-07-19 10:36] LABS: Base Excess -0.3 mmol/L (-2.0-3.0)
--- NOTE | 2025-07-19 11:56 | DVHPN2 ---
Subjective The patient is seen and examined at bedside. The patient remained on high-flow. Complain of shortness for breath. Reviewed: Care Plan, H&P, Labs, Medications, Previous Orders, Radiology Changes from previous H/P or p: No Changes Eyes: No Pain, No Vision change, No Conjunctivae inflammation, No Eyelid inflammation, No Other, No Redness ENT: No Ear pain, No Ear discharge, No Nose pain, No Nose discharge, No Nose congestion, No Mouth pain, No Mouth swelling, No Throat pain, No Throat swelling, No Other Cardiovascular: No Chest Pain, No Palpitations, No Orthopnea, No Paroxysmal Noc. Dyspnea, No Edema, No Lt Headedness, No Other Respiratory: No Cough, No Dry; Shortness of breath, SOB with excertion; No Wheezing, No Hemoptysis, No Pleuritic Pain, No Sputum, No Other Gastrointestinal: Nausea; No Vomiting, No Abdominal Pain, No Diarrhea, No Constipation, No Melena, No Hematochezia, No Other Genitourinary: No Dysuria, No Frequency, No Incontinence, No Hematuria, No Retention, No Other Musculoskeletal: No other, No neck pain, No shoulder pain, No arm pain, No back pain, No hand pain, No leg pain, No foot pain Skin: No Rash, No Lesions, No Jaundice, No Bruising, No Other Objective Vitals Vital Signs Date Time Temp Pulse Resp B/P (MAP) Pulse Ox O2 Delivery O2 Flow Rate FiO2 07/19/25 11:15 77 16 110/74 (86) 94 07/19/25 10:18 30.0 50 07/19/25 07:15 97.8 97.8 07/19/25 07:15 Hi-Flow Heated NC+ Intake/Output Intake and Output 07/19/25 07:00 Intake Total 264 ml Output Total 3100 ml Balance -2836 ml Intake Oral 0 ml IV Total 264 ml Output Urine Total 3100 ml General Appearance: Alert, Oriented X3, Cooperative, mild distress HEENT: Atraumatic, PERRLA, EOMI, Mucous membr. moist/pink Neck: Supple Lungs: Clear to auscultation, Normal air movement Cardiovascular: Regular rate, Normal S1, Normal S2, No murmurs, Gallops, Rubs Abdomen: Normal bowel sounds, Soft, No tenderness Neuro: Cranial nerves 3-12 NL Psych/Mental Status: Mental status NL Medications Current Medications Medications Dose Ordered Sig/Lencho Route Start Time Stop Time Status Last Admin Dose Admin Norepinephrine Bitartrate 250 ml @ 3.75 mls/hr Q24H IV 07/16/25 04:45 07/18/25 02:31 7.5 MLS/HR Acetaminophen/ Hydrocodone Bitart 1 tab Q4HP PRN PO 07/16/25 08:00 07/17/25 20:00 1 TAB Ondansetron HCl 4 mg Q4HP PRN IV 07/16/25 08:00 07/16/25 23:29 4 MG Docusate Sodium 100 mg BIDPRN PRN PO 07/16/25 08:00 07/18/25 22:31 100 MG Acetaminophen 650 mg Q6HP PRN PO 07/16/25 08:00 Morphine Sulfate 2 mg Q4HPRN PRN IV 07/16/25 08:00 Nitroglycerin 0.4 mg Q5MINP PRN SL 07/16/25 08:00 Hold Morphine Sulfate 2 mg Q30M PRN IV 07/16/25 08:00 Enoxaparin Sodium 80 mg Q12HR SC 07/16/25 22:00 07/19/25 10:05 80 MG Ceftriaxone Sodium 50 ml @ 100 mls/hr DAILY@09 IV 07/17/25 09:00 07/19/25 09:01 100 MLS/HR Vancomycin HCl 0 ml @ 0 mls/hr UD IV 07/16/25 13:30 Furosemide 40 mg DAILY IV 07/17/25 10:00 07/19/25 10:09 40 MG Atorvastatin Calcium 40 mg HS PO 07/16/25 22:00 07/18/25 22:21 40 MG Budesonide 0.25 mg BID NEB 07/16/25 22:00 07/19/25 06:36 0.25 MG Levothyroxine Sodium 100 mcg QAM@0600 PO 07/17/25 06:00 07/19/25 06:22 100 MCG Sildenafil Citrate 20 mg TID PO 07/16/25 22:00 Patient Own Medication 32 DAILY@0900,1300,1700,2100 IN 07/16/25 17:00 07/19/25 09:01 32 Levothyroxine Sodium 25 mcg QAM@0600 PO 07/17/25 06:00 07/19/25 06:22 25 MCG Dobutamine HCl/ Dextrose 500 mg/ Dextrose 250 ml @ 11.25 mls/ hr [id number] IV 07/16/25 15:30 Hold Phenylephrine HCl 40 mg/Sodium Chloride 250 ml @ 15 mls/hr [id number] IV 07/16/25 15:30 Hold Epinephrine HCl 8 mg/Dextrose 250 ml @ 3.75 mls/hr Q24H IV 07/16/25 15:30 Hold Oseltamivir Phosphate 75 mg Q12HR PO 07/17/25 22:00 07/22/25 21:59 07/19/25 10:05 75 MG Vancomycin HCl 100 ml @ 200 mls/hr Q12H IV 07/18/25 05:00 07/19/25 05:16 200 MLS/HR Methylprednisolone Sodium Succinate 40 mg Q8HR IV 07/18/25 14:00 07/19/25 06:22 40 MG Laboratory Results Laboratory Tests 07/19/25 03:37 Chemistry Test 07/19/25 03:37 Calcium Level 8.1 mg/dL (8.7-10.4) L Urinalysis Test 07/16/25 21:47 Urine Color Yellow (Yellow) Urine Clarity Clear (Clear) Urine pH 6.5 (5.0-9.0) Urine Specific [place] > 1.050 (1.001-1.035) Urine Protein Trace (Negative) H Urine Ketones 1+ (Negative) H Urine Blood Trace /uL (Negative) H Urine Nitrite Negative (Negative) Urine Bilirubin Negative (Negative) Urine Urobilinogen Normal mg/dL (Negative) Urine Leukocyte Esterase Negative /uL (Negative) Urine RBC 1 /hpf (0 - 4) Urine Microscopic WBC 6 /HPF (0-5) H Urine Squamous Epithelial Cells Few /hpf (<5) Urine Bacteria None seen /hpf (None Seen) Urine Glucose Normal mg/dL (Normal) Blood Gas Results Test 07/19/25 10:18 Arterial Blood pH 7.495 (7.350-7.450) FiO2 % 50.0 Microbiology Microbiology Date/Time Source Procedure Growth Status 07/16/25 01:40 Blood Blood Culture - Preliminary NO GROWTH AFTER 72 HOURS OF INCUBATION. Resulted Labs and/or images reviewed: Labs reviewed by me Assessment/Plan Assessment/Plan Acute hypoxic respiratory failure, on high-flow oxygen Elevated troponin, R/O ACS, Possible cardiogenic shock, Lactic acidosis, R/O PE, Pulmonary hypertension, oxygen dependant, Influenza B positive Plan: Appreciate cardiology input Consider pulmonology consult for severe pulmonary hypertension, Vasopressors as needed, ECHO, A1c, lipid panel, TSH, D-Dimer, Bilateral lower extremity ultrasound, Consider CT angio of chest, IV antibiotics, Blood cultures, UA, Bilateral lower extremity ultrasound, CT angio of chest, Home medications reconciled, Tamiflu 75 mg p.o. b.i.d. Continuing to try to wean the patient off high-flow oxygen if possible Critical care spent for this case is 37 minute This medical document was created using an electronic medical record system with [employer] direct computerized dictation system. Although this document has been carefully reviewed, there may still be some phonetic and typographical errors. These areas are purely typographical due to imperfections of the software programs, and do not reflect any compromise in the patient's medical care. Plan discussed with: Patient My Orders Orders - TAMI PRINGLE MD Procedure Category Date Status Time Rt Upper Dvt US 07/18/25 Resulted 12:53 Date of Service: Jul 19, 2025 Billing Provider: TAMI PRINGLE MD Common Visit Codes: [id number] INP/OBS CARE(HIGH) TAMI PRINGLE MD Jul 19, 2025 11:56
--- NOTE | 2025-07-19 17:20 | DVHPN2 ---
Progress Note - Dictate Date Seen: Jul 19, 2025 Medical Necessity Reason Pt with a Central, PICC or Fol: Yes The following are medically ne: Barbour Catheter vital signs Vital Sign Date Time Temp Pulse Resp B/P (MAP) Pulse Ox O2 Delivery O2 Flow Rate FiO2 07/19/25 16:00 86 07/19/25 15:15 22 100/69 (79) 93 07/19/25 14:54 25.0 50 07/19/25 07:15 97.8 97.8 07/19/25 07:15 Hi-Flow Heated NC+ Total Intake and Output 07/18/25 07/18/25 07/19/25 15:00 23:00 07:00 Intake Total 62 ml 102 ml 100 ml Output Total 1700 ml 1100 ml 300 ml Balance -1638 ml -998 ml -200 ml medications Current Medications Medications Dose Ordered Sig/Lencho Route Start Time Stop Time Status Last Admin Dose Admin Acetaminophen/ Hydrocodone Bitart 1 tab Q4HP PRN PO 07/16/25 08:00 07/17/25 20:00 1 TAB Ondansetron HCl 4 mg Q4HP PRN IV 07/16/25 08:00 07/16/25 23:29 4 MG Docusate Sodium 100 mg BIDPRN PRN PO 07/16/25 08:00 07/18/25 22:31 100 MG Acetaminophen 650 mg Q6HP PRN PO 07/16/25 08:00 Morphine Sulfate 2 mg Q4HPRN PRN IV 07/16/25 08:00 Nitroglycerin 0.4 mg Q5MINP PRN SL 07/16/25 08:00 Hold Morphine Sulfate 2 mg Q30M PRN IV 07/16/25 08:00 Enoxaparin Sodium 80 mg Q12HR SC 07/16/25 22:00 07/19/25 10:05 80 MG Ceftriaxone Sodium 50 ml @ 100 mls/hr DAILY@09 IV 07/17/25 09:00 07/19/25 09:01 100 MLS/HR Vancomycin HCl 0 ml @ 0 mls/hr UD IV 07/16/25 13:30 Furosemide 40 mg DAILY IV 07/17/25 10:00 07/19/25 10:09 40 MG Atorvastatin Calcium 40 mg HS PO 07/16/25 22:00 07/18/25 22:21 40 MG Budesonide 0.25 mg BID NEB 07/16/25 22:00 07/19/25 06:36 0.25 MG Levothyroxine Sodium 100 mcg QAM@0600 PO 07/17/25 06:00 07/19/25 06:22 100 MCG Sildenafil Citrate 20 mg TID PO 07/16/25 22:00 07/19/25 14:41 20 MG Patient Own Medication 32 DAILY@0900,1300,1700,2100 IN 07/16/25 17:00 07/19/25 16:59 32 Levothyroxine Sodium 25 mcg QAM@0600 PO 07/17/25 06:00 07/19/25 06:22 25 MCG Oseltamivir Phosphate 75 mg Q12HR PO 07/17/25 22:00 07/22/25 21:59 07/19/25 10:05 75 MG Vancomycin HCl 100 ml @ 200 mls/hr Q12H IV 07/18/25 05:00 07/19/25 16:59 200 MLS/HR Methylprednisolone Sodium Succinate 40 mg Q8HR IV 07/18/25 14:00 07/19/25 14:41 40 MG laboratory and microbiology Laboratory Tests 07/19/25 03:37 Test 07/19/25 03:37 Range/Units Serum Glucose 135 H 74-106 mg/dL Assessment/Plan Impression Acute hypoxemic respiratory failure Pulmonary hypertension Influenza B pneumonia Pulmonary fibrosis Shock Patient seen and examined in the ER Events HFO resp status tenuous off levophed Labs and imaging reviewed CTA of the chest shows no evidence of pulmonary embolism Honeycombing present from underlying lung disease and bronchiectasis Management Supplemental oxygen Titrate to maintain sats 90% or above Incentive spirometry Continue antibiotics F/u cultures Bronchodilators Tamiflu course- recommend 5 days of treatment Steroids- Solumedrol 40mg IV TID Monitor renal function Monitor electrolytes Supplement as needed Continue Sildenafil for pulmonary hypertension Pressors as needed for hemodynamic support To maintain a mean arterial pressure of 65 mmHg DVT prophylaxis Critical care time 35 minutes Plan discussed with: Patient HO COELHO MD Jul 19, 2025 17:20
--- NOTE | 2025-07-19 23:20 | DVHPN2 ---
Progress Note - Dictate Date Seen: Jul 19, 2025 Medical Necessity Reason Pt with a Central, PICC or Fol: Yes The following are medically ne: Barbour Catheter Subjective Patient was seen and evaluated in follow up. Patient remains SOB. The patient is on heated high flow, 35%. Patient is afebrile. Prelim blood cultures are negative for growth. vital signs Vital Sign Date Time Temp Pulse Resp B/P (MAP) Pulse Ox O2 Delivery O2 Flow Rate FiO2 07/19/25 21:45 84 20 100/58 (72) 97 07/19/25 19:35 Hi-Flow Heated NC+ 35 50 50 07/19/25 07:15 97.8 97.8 Total Intake and Output 07/18/25 07/18/25 07/19/25 15:00 23:00 07:00 Intake Total 62 ml 102 ml 100 ml Output Total 1700 ml 1100 ml 300 ml Balance -1638 ml -998 ml -200 ml medications Current Medications Medications Dose Ordered Sig/Lencho Route Start Time Stop Time Status Last Admin Dose Admin Acetaminophen/ Hydrocodone Bitart 1 tab Q4HP PRN PO 07/16/25 08:00 07/17/25 20:00 1 TAB Ondansetron HCl 4 mg Q4HP PRN IV 07/16/25 08:00 07/16/25 23:29 4 MG Docusate Sodium 100 mg BIDPRN PRN PO 07/16/25 08:00 07/18/25 22:31 100 MG Acetaminophen 650 mg Q6HP PRN PO 07/16/25 08:00 Morphine Sulfate 2 mg Q4HPRN PRN IV 07/16/25 08:00 Nitroglycerin 0.4 mg Q5MINP PRN SL 07/16/25 08:00 Hold Morphine Sulfate 2 mg Q30M PRN IV 07/16/25 08:00 Enoxaparin Sodium 80 mg Q12HR SC 07/16/25 22:00 07/19/25 10:05 80 MG Ceftriaxone Sodium 50 ml @ 100 mls/hr DAILY@09 IV 07/17/25 09:00 07/19/25 09:01 100 MLS/HR Vancomycin HCl 0 ml @ 0 mls/hr UD IV 07/16/25 13:30 Furosemide 40 mg DAILY IV 07/17/25 10:00 07/19/25 10:09 40 MG Atorvastatin Calcium 40 mg HS PO 07/16/25 22:00 07/19/25 21:38 40 MG Budesonide 0.25 mg BID NEB 07/16/25 22:00 07/19/25 18:18 0.25 MG Levothyroxine Sodium 100 mcg QAM@0600 PO 07/17/25 06:00 07/19/25 06:22 100 MCG Sildenafil Citrate 20 mg TID PO 07/16/25 22:00 07/19/25 14:41 20 MG Patient Own Medication 32 DAILY@0900,1300,1700,2100 IN 07/16/25 17:00 07/19/25 21:14 32 Levothyroxine Sodium 25 mcg QAM@0600 PO 07/17/25 06:00 07/19/25 06:22 25 MCG Oseltamivir Phosphate 75 mg Q12HR PO 07/17/25 22:00 07/22/25 21:59 07/19/25 21:39 75 MG Vancomycin HCl 100 ml @ 200 mls/hr Q12H IV 07/18/25 05:00 07/19/25 16:59 200 MLS/HR Methylprednisolone Sodium Succinate 40 mg Q8HR IV 07/18/25 14:00 07/19/25 21:38 40 MG laboratory and microbiology Laboratory Tests 07/19/25 03:37 Test 07/19/25 03:37 Range/Units Serum Glucose 135 H 74-106 mg/dL Problem List NSTEMI. Rule out structural heart disease. Tricuspid valve regurgitation. Septic shock vs cardiogenic, ?Mixed. Severe hypokalemia. Severe pulmonary hypertension. Pulmonary fibrosis on continuous home O2. Transaminitis. History of tobacco use. Remote history of drug use. Positive Influenza B. Assessment/Plan Continued all current supportive medical care. Transthoracic echocardiogram to evaluate cardiac function and check for wall motion abnormalities. Morphine and [place] for pain management. Lipitor. IV antibiotics as ordered. DVT prophylactics. Diuretics with Lasix. Additional plan as per the hospital course. Critical care time of 45 minutes provided to include time spent evaluation of patient at bedside, when appropriate patient/family education for diagnosis, treatment plan, review of pertinent medical information and discussion of care with specialty providers and PCP. Plan discussed with: Patient SHANTEL ZAPATA MD Jul 19, 2025 23:20
[2025-07-20] VITALS (31 sets, daily range): BP systolic 96–126; BP diastolic 63–86; PULSE 58–105; RESP 12–26; TEMP 97.5–97.9; O2SAT 80–100
[2025-07-20 05:40] LABS: Hematocrit 38.6 % (36.0-46.0); Hemoglobin 13.3 g/dL (12.2-16.2); Mean Corpuscular Hemoglobin 33.2 pg (28.0-32.0); Mean Corpuscular Volume 96.5 fL (80.0-100.0); Nucleated Red Blood Cells % 0.0 %
[2025-07-20 05:51] LABS: Anion Gap 9 (5-15); Carbon Dioxide 27 mmol/L (20-31); Chloride 104 mmol/L (98-107); Potassium 3.5 mmol/L (3.5-5.1); Sodium 140 mmol/L (136-145)
[2025-07-20 05:53] LABS: Calcium 8.1 mg/dL (8.7-10.4)
[2025-07-20 05:57] LABS: BUN/Creatinine Ratio 22.1 (10.0-20.0); Blood Urea Nitrogen 15 mg/dL (9-23)
[2025-07-20 05:59] LABS: Glucose 140 mg/dL (74-106)
--- NOTE | 2025-07-20 10:39 | DVHPN2 ---
Subjective The patient is seen and examined at bedside. The patient wean off high-flow. Now on Oxymizer. Complain of shortness for breath. Reviewed: Care Plan, H&P, Labs, Medications, Previous Orders, Radiology Changes from previous H/P or p: No Changes Eyes: No Pain, No Vision change, No Conjunctivae inflammation, No Eyelid inflammation, No Other, No Redness ENT: No Ear pain, No Ear discharge, No Nose pain, No Nose discharge, No Nose congestion, No Mouth pain, No Mouth swelling, No Throat pain, No Throat swelling, No Other Cardiovascular: No Chest Pain, No Palpitations, No Orthopnea, No Paroxysmal Noc. Dyspnea, No Edema, No Lt Headedness, No Other Respiratory: No Cough, No Dry; Shortness of breath, SOB with excertion; No Wheezing, No Hemoptysis, No Pleuritic Pain, No Sputum, No Other Gastrointestinal: Nausea; No Vomiting, No Abdominal Pain, No Diarrhea, No Constipation, No Melena, No Hematochezia, No Other Genitourinary: No Dysuria, No Frequency, No Incontinence, No Hematuria, No Retention, No Other Musculoskeletal: No other, No neck pain, No shoulder pain, No arm pain, No back pain, No hand pain, No leg pain, No foot pain Skin: No Rash, No Lesions, No Jaundice, No Bruising, No Other Objective Vitals Vital Signs Date Time Temp Pulse Resp B/P (MAP) Pulse Ox O2 Delivery O2 Flow Rate FiO2 07/20/25 09:28 125/83 07/20/25 09:19 62 98 6.0 52 07/20/25 08:00 20 Hi-Flow Heated NC+ 07/20/25 05:00 97.9 97.9 Intake/Output Intake and Output 07/20/25 07:00 Intake Total 270 ml Output Total 1575 ml Balance -1305 ml Intake Oral 120 ml IV Total 150 ml Output Urine Total 1575 ml General Appearance: Alert, Oriented X3, Cooperative, mild distress HEENT: Atraumatic, PERRLA, EOMI, Mucous membr. moist/pink Neck: Supple Lungs: Clear to auscultation, Normal air movement Cardiovascular: Regular rate, Normal S1, Normal S2, No murmurs, Gallops, Rubs Abdomen: Normal bowel sounds, Soft, No tenderness Neuro: Cranial nerves 3-12 NL Psych/Mental Status: Mental status NL Medications Current Medications Medications Dose Ordered Sig/Lencho Route Start Time Stop Time Status Last Admin Dose Admin Acetaminophen/ Hydrocodone Bitart 1 tab Q4HP PRN PO 07/16/25 08:00 07/20/25 07:05 1 TAB Ondansetron HCl 4 mg Q4HP PRN IV 07/16/25 08:00 07/16/25 23:29 4 MG Docusate Sodium 100 mg BIDPRN PRN PO 07/16/25 08:00 07/18/25 22:31 100 MG Acetaminophen 650 mg Q6HP PRN PO 07/16/25 08:00 Morphine Sulfate 2 mg Q4HPRN PRN IV 07/16/25 08:00 Nitroglycerin 0.4 mg Q5MINP PRN SL 07/16/25 08:00 Hold Morphine Sulfate 2 mg Q30M PRN IV 07/16/25 08:00 Enoxaparin Sodium 80 mg Q12HR SC 07/16/25 22:00 07/20/25 09:28 80 MG Ceftriaxone Sodium 50 ml @ 100 mls/hr DAILY@09 IV 07/17/25 09:00 07/20/25 09:36 100 MLS/HR Vancomycin HCl 0 ml @ 0 mls/hr UD IV 07/16/25 13:30 Furosemide 40 mg DAILY IV 07/17/25 10:00 07/20/25 09:28 40 MG Atorvastatin Calcium 40 mg HS PO 07/16/25 22:00 07/19/25 21:38 40 MG Budesonide 0.25 mg BID NEB 07/16/25 22:00 07/20/25 05:44 0.25 MG Levothyroxine Sodium 100 mcg QAM@0600 PO 07/17/25 06:00 07/20/25 06:10 100 MCG Sildenafil Citrate 20 mg TID PO 07/16/25 22:00 07/20/25 06:11 20 MG Patient Own Medication 32 DAILY@0900,1300,1700,2100 IN 07/16/25 17:00 07/20/25 09:28 32 Levothyroxine Sodium 25 mcg QAM@0600 PO 07/17/25 06:00 07/20/25 06:11 25 MCG Oseltamivir Phosphate 75 mg Q12HR PO 07/17/25 22:00 07/22/25 21:59 07/20/25 09:28 75 MG Vancomycin HCl 100 ml @ 200 mls/hr Q12H IV 07/18/25 05:00 07/20/25 06:12 200 MLS/HR Methylprednisolone Sodium Succinate 40 mg Q8HR IV 07/18/25 14:00 07/20/25 06:11 40 MG Laboratory Results Laboratory Tests 07/20/25 04:59 Chemistry Test 07/20/25 04:59 Calcium Level 8.1 mg/dL (8.7-10.4) L Urinalysis Test 07/16/25 21:47 Urine Color Yellow (Yellow) Urine Clarity Clear (Clear) Urine pH 6.5 (5.0-9.0) Urine Specific [place] > 1.050 (1.001-1.035) Urine Protein Trace (Negative) H Urine Ketones 1+ (Negative) H Urine Blood Trace /uL (Negative) H Urine Nitrite Negative (Negative) Urine Bilirubin Negative (Negative) Urine Urobilinogen Normal mg/dL (Negative) Urine Leukocyte Esterase Negative /uL (Negative) Urine RBC 1 /hpf (0 - 4) Urine Microscopic WBC 6 /HPF (0-5) H Urine Squamous Epithelial Cells Few /hpf (<5) Urine Bacteria None seen /hpf (None Seen) Urine Glucose Normal mg/dL (Normal) Microbiology Microbiology Date/Time Source Procedure Growth Status 07/16/25 01:40 Blood Blood Culture - Preliminary NO GROWTH AFTER 72 HOURS OF INCUBATION. Resulted Labs and/or images reviewed: Labs reviewed by me Assessment/Plan Assessment/Plan Acute hypoxic respiratory failure, on high-flow oxygen Elevated troponin, R/O ACS, Possible cardiogenic shock, Sepsis Lactic acidosis, R/O PE, Pulmonary hypertension, oxygen dependant, Influenza B positive Plan: Appreciate cardiology input Consider pulmonology consult for severe pulmonary hypertension, Vasopressors wean off ECHO, A1c, lipid panel, TSH, D-Dimer, Bilateral lower extremity ultrasound, Consider CT angio of chest, Continue IV antibiotics, Blood cultures, UA, Bilateral lower extremity ultrasound, CT angio of chest, Home medications reconciled, Tamiflu 75 mg p.o. b.i.d. Down grade to telemetry. This medical document was created using an electronic medical record system with [employer] direct computerized dictation system. Although this document has been carefully reviewed, there may still be some phonetic and typographical errors. These areas are purely typographical due to imperfections of the software programs, and do not reflect any compromise in the patient's medical care. Plan discussed with: Patient My Orders Orders - TAMI PRINGLE MD Procedure Category Date Status Time Complete Blood Count LAB 07/21/25 Verified 05:00 Complete Blood Count LAB 07/22/25 Verified 05:00 Complete Blood Count LAB 07/23/25 Verified 05:00 Complete Blood Count LAB 07/24/25 Verified 05:00 Basic Metabolic Panel LAB 07/21/25 Verified 05:00 Basic Metabolic Panel LAB 07/22/25 Verified 05:00 Basic Metabolic Panel LAB 07/23/25 Verified 05:00 Basic Metabolic Panel LAB 07/24/25 Verified 05:00 Mrsa Screen QUINTIN 07/19/25 In Process 23:47 Date of Service: Jul 20, 2025 Billing Provider: TAMI PRNIGLE MD Common Visit Codes: [id number] INP/OBS CARE(HIGH) TAMI PRINGLE MD Jul 20, 2025 10:39
[2025-07-20 12:57] LABS: Urine Budding Yeast OCCASIONAL /hpf (None Seen); Urine Protein, UAD Negative (Negative)
--- NOTE | 2025-07-20 17:07 | DVHPN2 ---
Progress Note - Dictate Date Seen: Jul 20, 2025 Medical Necessity Reason Pt with a Central, PICC or Fol: Yes The following are medically ne: Barbour Catheter vital signs Vital Sign Date Time Temp Pulse Resp B/P (MAP) Pulse Ox O2 Delivery O2 Flow Rate FiO2 07/20/25 16:00 20 95 Oxymizer 10 40 40 07/20/25 16:00 77 106/76 (86) 07/20/25 12:00 97.7 97.7 Total Intake and Output 07/19/25 07/19/25 07/20/25 15:00 23:00 07:00 Intake Total 50 ml 220 ml Output Total 950 ml 200 ml 425 ml Balance -900 ml -200 ml -205 ml medications Current Medications Medications Dose Ordered Sig/Lencho Route Start Time Stop Time Status Last Admin Dose Admin Acetaminophen/ Hydrocodone Bitart 1 tab Q4HP PRN PO 07/16/25 08:00 07/20/25 07:05 1 TAB Ondansetron HCl 4 mg Q4HP PRN IV 07/16/25 08:00 07/16/25 23:29 4 MG Docusate Sodium 100 mg BIDPRN PRN PO 07/16/25 08:00 07/18/25 22:31 100 MG Acetaminophen 650 mg Q6HP PRN PO 07/16/25 08:00 Morphine Sulfate 2 mg Q4HPRN PRN IV 07/16/25 08:00 Nitroglycerin 0.4 mg Q5MINP PRN SL 07/16/25 08:00 Hold Morphine Sulfate 2 mg Q30M PRN IV 07/16/25 08:00 Enoxaparin Sodium 80 mg Q12HR SC 07/16/25 22:00 07/20/25 09:28 80 MG Ceftriaxone Sodium 50 ml @ 100 mls/hr DAILY@09 IV 07/17/25 09:00 07/20/25 09:36 100 MLS/HR Vancomycin HCl 0 ml @ 0 mls/hr UD IV 07/16/25 13:30 Furosemide 40 mg DAILY IV 07/17/25 10:00 07/20/25 09:28 40 MG Atorvastatin Calcium 40 mg HS PO 07/16/25 22:00 07/19/25 21:38 40 MG Budesonide 0.25 mg BID NEB 07/16/25 22:00 07/20/25 05:44 0.25 MG Levothyroxine Sodium 100 mcg QAM@0600 PO 07/17/25 06:00 07/20/25 06:10 100 MCG Sildenafil Citrate 20 mg TID PO 07/16/25 22:00 07/20/25 13:13 20 MG Patient Own Medication 32 DAILY@0900,1300,1700,2100 IN 07/16/25 17:00 07/20/25 13:13 32 Levothyroxine Sodium 25 mcg QAM@0600 PO 07/17/25 06:00 07/20/25 06:11 25 MCG Oseltamivir Phosphate 75 mg Q12HR PO 07/17/25 22:00 07/22/25 21:59 07/20/25 09:28 75 MG Methylprednisolone Sodium Succinate 40 mg Q8HR IV 07/18/25 14:00 07/20/25 13:13 40 MG Vancomycin HCl 100 ml @ 100 mls/hr Q12H IV 07/20/25 17:00 laboratory and microbiology Laboratory Tests 07/20/25 04:59 Test 07/20/25 04:59 Range/Units Serum Glucose 140 H 74-106 mg/dL Assessment/Plan Impression Acute hypoxemic respiratory failure Pulmonary hypertension Influenza B pneumonia Pulmonary fibrosis Shock Patient seen and examined isolated for infl B improving 02 on nasal 02 Labs and imaging reviewed CTA of the chest shows no evidence of pulmonary embolism Honeycombing present from underlying lung disease and bronchiectasis Management Supplemental oxygen Titrate to maintain sats 90% or above Incentive spirometry Continue antibiotics F/u cultures Bronchodilators Tamiflu course- recommend 5 days of treatment Steroids- Solumedrol 40mg IV TID Monitor renal function Monitor electrolytes Supplement as needed Continue Sildenafil for pulmonary hypertension DVT prophylaxis ok to d/grade Critical care time 35 minutes Plan discussed with: Other (rn) HO COELHO MD Jul 20, 2025 17:07
[2025-07-20] MEDS: VANCOMYCIN 750mg/100mL IV SCH (17:30)
--- NOTE | 2025-07-20 22:21 | DVHPN2 ---
Progress Note - Dictate Date Seen: Jul 20, 2025 Medical Necessity Reason Pt with a Central, PICC or Fol: Yes The following are medically ne: Barbour Catheter Subjective Patient was seen and evaluated in follow up. Patient has been transitioned to Oxymizer, 40% FiO2. Patient is complaining of SOB. CBC and CMP are WNL. UA is negative for infection. Telemetry reviewed. vital signs Vital Sign Date Time Temp Pulse Resp B/P (MAP) Pulse Ox O2 Delivery O2 Flow Rate FiO2 07/20/25 22:04 83 21 98 07/20/25 22:00 07/20/25 21:59 Oxymizer 10.0 07/20/25 21:59 N/A 07/20/25 17:00 97.5 97.5 Total Intake and Output 07/19/25 07/19/25 07/20/25 15:00 23:00 07:00 Intake Total 50 ml 220 ml Output Total 950 ml 200 ml 425 ml Balance -900 ml -200 ml -205 ml medications Current Medications Medications Dose Ordered Sig/Lencho Route Start Time Stop Time Status Last Admin Dose Admin Acetaminophen/ Hydrocodone Bitart 1 tab Q4HP PRN PO 07/16/25 08:00 07/20/25 07:05 1 TAB Ondansetron HCl 4 mg Q4HP PRN IV 07/16/25 08:00 07/16/25 23:29 4 MG Docusate Sodium 100 mg BIDPRN PRN PO 07/16/25 08:00 07/18/25 22:31 100 MG Acetaminophen 650 mg Q6HP PRN PO 07/16/25 08:00 Morphine Sulfate 2 mg Q4HPRN PRN IV 07/16/25 08:00 Nitroglycerin 0.4 mg Q5MINP PRN SL 07/16/25 08:00 Hold Morphine Sulfate 2 mg Q30M PRN IV 07/16/25 08:00 Enoxaparin Sodium 80 mg Q12HR SC 07/16/25 22:00 07/20/25 20:57 80 MG Ceftriaxone Sodium 50 ml @ 100 mls/hr DAILY@09 IV 07/17/25 09:00 07/20/25 09:36 100 MLS/HR Vancomycin HCl 0 ml @ 0 mls/hr UD IV 07/16/25 13:30 Furosemide 40 mg DAILY IV 07/17/25 10:00 07/20/25 09:28 40 MG Atorvastatin Calcium 40 mg HS PO 07/16/25 22:00 07/20/25 20:56 40 MG Budesonide 0.25 mg BID NEB 07/16/25 22:00 07/20/25 21:59 0.25 MG Levothyroxine Sodium 100 mcg QAM@0600 PO 07/17/25 06:00 07/20/25 06:10 100 MCG Sildenafil Citrate 20 mg TID PO 07/16/25 22:00 07/20/25 20:56 20 MG Patient Own Medication 32 DAILY@0900,1300,1700,2100 IN 07/16/25 17:00 07/20/25 20:57 32 Levothyroxine Sodium 25 mcg QAM@0600 PO 07/17/25 06:00 07/20/25 06:11 25 MCG Oseltamivir Phosphate 75 mg Q12HR PO 07/17/25 22:00 07/22/25 21:59 07/20/25 20:57 75 MG Methylprednisolone Sodium Succinate 40 mg Q8HR IV 07/18/25 14:00 07/20/25 20:57 40 MG Vancomycin HCl 100 ml @ 100 mls/hr Q12H IV 07/20/25 17:00 07/20/25 17:30 100 MLS/HR laboratory and microbiology Laboratory Tests 07/20/25 04:59 Test 07/20/25 04:59 Range/Units Serum Glucose 140 H 74-106 mg/dL Problem List NSTEMI. Rule out structural heart disease. Tricuspid valve regurgitation. Septic shock vs cardiogenic, ?Mixed. Severe hypokalemia. Severe pulmonary hypertension. Pulmonary fibrosis on continuous home O2. Transaminitis. History of tobacco use. Remote history of drug use. Positive Influenza B. Assessment/Plan Continued all current supportive medical care. Morphine and [place] for pain management. Lipitor. IV antibiotics as ordered. DVT prophylactics. Diuretics with Lasix. Additional plan as per the hospital course. Plan discussed with: Patient SHANTEL ZAPATA MD Jul 20, 2025 22:21
[2025-07-20] MEDS: ACETAMINOPHEN 325 MG TAB PO PRN (23:03)
[2025-07-21] VITALS (12 sets, daily range): BP systolic 89–125; BP diastolic 67–87; PULSE 56–78; RESP 17–22; TEMP 97.6–98.9; O2SAT 93–100
[2025-07-21 05:56] LABS: Hematocrit 39.1 % (36.0-46.0); Hemoglobin 13.3 g/dL (12.2-16.2); Mean Corpuscular Hemoglobin 32.8 pg (28.0-32.0); Mean Corpuscular Volume 96.7 fL (80.0-100.0); Nucleated Red Blood Cells % 0.1 %
[2025-07-21 05:57] LABS: Anion Gap 7 (5-15); Carbon Dioxide 29 mmol/L (20-31); Chloride 101 mmol/L (98-107); Sodium 137 mmol/L (136-145)
[2025-07-21 06:03] LABS: BUN/Creatinine Ratio 18.9 (10.0-20.0); Blood Urea Nitrogen 14 mg/dL (9-23); Calcium 8.0 mg/dL (8.7-10.4); Glucose 104 mg/dL (74-106); Potassium 3.4 mmol/L (3.5-5.1)
--- NOTE | 2025-07-21 10:49 | DVHPN2 ---
Subjective The patient is seen and examined at bedside. The patient wean off high-flow. Now on Oxymizer. Complain of shortness for breath. Also complains that steroid make her having bad headache. Reviewed: Care Plan, H&P, Labs, Medications, Previous Orders, Radiology Changes from previous H/P or p: No Changes Eyes: No Pain, No Vision change, No Conjunctivae inflammation, No Eyelid inflammation, No Other, No Redness ENT: No Ear pain, No Ear discharge, No Nose pain, No Nose discharge, No Nose congestion, No Mouth pain, No Mouth swelling, No Throat pain, No Throat swelling, No Other Cardiovascular: No Chest Pain, No Palpitations, No Orthopnea, No Paroxysmal Noc. Dyspnea, No Edema, No Lt Headedness, No Other Respiratory: No Cough, No Dry; Shortness of breath, SOB with excertion; No Wheezing, No Hemoptysis, No Pleuritic Pain, No Sputum, No Other Gastrointestinal: Nausea; No Vomiting, No Abdominal Pain, No Diarrhea, No Constipation, No Melena, No Hematochezia, No Other Genitourinary: No Dysuria, No Frequency, No Incontinence, No Hematuria, No Retention, No Other Musculoskeletal: No other, No neck pain, No shoulder pain, No arm pain, No back pain, No hand pain, No leg pain, No foot pain Skin: No Rash, No Lesions, No Jaundice, No Bruising, No Other Objective Vitals Vital Signs Date Time Temp Pulse Resp B/P (MAP) Pulse Ox O2 Delivery O2 Flow Rate FiO2 07/21/25 10:20 98 Oxymizer 10 N/A 07/21/25 10:20 69 18 07/21/25 09:28 102/70 07/21/25 09:00 97.6 97.6 Intake/Output Intake and Output 07/21/25 07:00 Intake Total 3040 ml Output Total 1640 ml Balance 1400 ml Intake Oral 2840 ml IV Total 200 ml Output Urine Total 1640 ml # Voids 3 # Bowel Movements 7 General Appearance: Alert, Oriented X3, Cooperative, mild distress HEENT: Atraumatic, PERRLA, EOMI, Mucous membr. moist/pink Neck: Supple Lungs: Clear to auscultation, Normal air movement Cardiovascular: Regular rate, Normal S1, Normal S2, No murmurs, Gallops, Rubs Abdomen: Normal bowel sounds, Soft, No tenderness Neuro: Cranial nerves 3-12 NL Psych/Mental Status: Mental status NL Medications Current Medications Medications Dose Ordered Sig/Lencho Route Start Time Stop Time Status Last Admin Dose Admin Acetaminophen/ Hydrocodone Bitart 1 tab Q4HP PRN PO 07/16/25 08:00 07/21/25 09:26 1 TAB Ondansetron HCl 4 mg Q4HP PRN IV 07/16/25 08:00 07/16/25 23:29 4 MG Docusate Sodium 100 mg BIDPRN PRN PO 07/16/25 08:00 07/18/25 22:31 100 MG Acetaminophen 650 mg Q6HP PRN PO 07/16/25 08:00 07/20/25 23:03 650 MG Morphine Sulfate 2 mg Q4HPRN PRN IV 07/16/25 08:00 Nitroglycerin 0.4 mg Q5MINP PRN SL 07/16/25 08:00 Hold Morphine Sulfate 2 mg Q30M PRN IV 07/16/25 08:00 Enoxaparin Sodium 80 mg Q12HR SC 07/16/25 22:00 07/21/25 09:27 80 MG Ceftriaxone Sodium 50 ml @ 100 mls/hr DAILY@09 IV 07/17/25 09:00 07/21/25 09:27 100 MLS/HR Vancomycin HCl 0 ml @ 0 mls/hr UD IV 07/16/25 13:30 Furosemide 40 mg DAILY IV 07/17/25 10:00 07/21/25 09:28 40 MG Atorvastatin Calcium 40 mg HS PO 07/16/25 22:00 07/20/25 20:56 40 MG Budesonide 0.25 mg BID NEB 07/16/25 22:00 07/21/25 10:16 0.25 MG Levothyroxine Sodium 100 mcg QAM@0600 PO 07/17/25 06:00 07/21/25 05:25 100 MCG Sildenafil Citrate 20 mg TID PO 07/16/25 22:00 07/21/25 05:25 20 MG Patient Own Medication 32 DAILY@0900,1300,1700,2100 IN 07/16/25 17:00 07/21/25 09:48 32 Levothyroxine Sodium 25 mcg QAM@0600 PO 07/17/25 06:00 07/21/25 05:25 25 MCG Oseltamivir Phosphate 75 mg Q12HR PO 07/17/25 22:00 07/22/25 21:59 07/21/25 09:28 75 MG Methylprednisolone Sodium Succinate 40 mg Q8HR IV 07/18/25 14:00 07/21/25 05:25 40 MG Vancomycin HCl 100 ml @ 100 mls/hr Q12H IV 07/20/25 17:00 07/21/25 05:24 100 MLS/HR Laboratory Results Laboratory Tests 07/21/25 04:50 Chemistry Test 07/21/25 04:50 Calcium Level 8.0 mg/dL (8.7-10.4) L Urinalysis Test 07/20/25 12:00 Urine Color Light-yellow (Yellow) Urine Clarity Clear (Clear) Urine pH 6.0 (5.0-9.0) Urine Specific [place] 1.012 (1.001-1.035) Urine Protein Negative (Negative) Urine Ketones Negative (Negative) Urine Blood Negative /uL (Negative) Urine Nitrite Negative (Negative) Urine Bilirubin Negative (Negative) Urine Urobilinogen Normal mg/dL (Negative) Urine Leukocyte Esterase Negative /uL (Negative) Urine RBC None seen /hpf (0 - 4) Urine Microscopic WBC < 1 /HPF (0-5) Urine Squamous Epithelial Cells Few /hpf (<5) Urine Bacteria None seen /hpf (None Seen) Urine Hyaline Casts Few /lpf (0 - 2) Urine Mucus Few (None Seen) Urine Yeast (Budding) Occasional /hpf (None Urine Glucose Normal mg/dL (Normal) Microbiology Microbiology Date/Time Source Procedure Growth Status 07/19/25 23:00 Nose MRSA Screen - Final Complete 07/16/25 01:40 Blood Blood Culture - Final NO GROWTH AFTER 5 DAYS OF INCUBATION. Complete Labs and/or images reviewed: Labs reviewed by me Assessment/Plan Assessment/Plan Acute hypoxic respiratory failure, on high-flow oxygen Elevated troponin, R/O ACS, Possible cardiogenic shock, Sepsis Lactic acidosis, R/O PE, Pulmonary hypertension, oxygen dependant, Influenza B positive Plan: Appreciate cardiology input Consider pulmonology consult for severe pulmonary hypertension, Vasopressors wean off ECHO, A1c, lipid panel, TSH, D-Dimer, Bilateral lower extremity ultrasound, Consider CT angio of chest, Continue IV antibiotics, Blood cultures, UA, Bilateral lower extremity ultrasound, CT angio of chest, Home medications reconciled, Tamiflu 75 mg p.o. b.i.d. Down grade to telemetry. I will give tylenol PRN for headache. Will wean off prednisone. Change solumedrol to 40mg IV q 12. This medical document was created using an electronic medical record system with [employer] computerized dictation system. Although this document has been carefully reviewed, there may still be some phonetic and typographical errors. These areas are purely typographical due to imperfections of the software programs, and do not reflect any compromise in the patient's medical care. Plan discussed with: Patient My Orders Orders - TAMI PRINGLE MD Procedure Category Date Status Time Transfer Orders XFER 07/20/25 Transmitted 16:12 Date of Service: Jul 21, 2025 Billing Provider: TAMI PRINGLE MD Common Visit Codes: [id number] INP/OBS CARE(HIGH) TAMI PRINGLE MD Jul 21, 2025 10:49
[2025-07-21] MEDS: PANTOPRAZOLE 40 MG/10 ML VIAL INJ IV ONE (12:58)
--- NOTE | 2025-07-21 19:50 | DVHPN2 ---
Progress Note - Dictate Medical Necessity Reason Pt with a Central, PICC or Fol: Yes The following are medically ne: Barbour Catheter vital signs Vital Sign Date Time Temp Pulse Resp B/P (MAP) Pulse Ox O2 Delivery O2 Flow Rate FiO2 07/21/25 17:41 105/69 (81) 07/21/25 16:42 97.7 60 18 97 97.7 07/21/25 10:20 Oxymizer 10 N/A Total Intake and Output 07/20/25 07/20/25 07/21/25 15:00 23:00 07:00 Intake Total 100 ml 800 ml 2140 ml Output Total 1400 ml 240 ml Balance 100 ml -600 ml 1900 ml medications Current Medications Medications Dose Ordered Sig/Lencho Route Start Time Stop Time Status Last Admin Dose Admin Acetaminophen/ Hydrocodone Bitart 1 tab Q4HP PRN PO 07/16/25 08:00 07/21/25 09:26 1 TAB Ondansetron HCl 4 mg Q4HP PRN IV 07/16/25 08:00 07/16/25 23:29 4 MG Docusate Sodium 100 mg BIDPRN PRN PO 07/16/25 08:00 07/18/25 22:31 100 MG Acetaminophen 650 mg Q6HP PRN PO 07/16/25 08:00 07/21/25 19:49 650 MG Morphine Sulfate 2 mg Q4HPRN PRN IV 07/16/25 08:00 Nitroglycerin 0.4 mg Q5MINP PRN SL 07/16/25 08:00 Hold Morphine Sulfate 2 mg Q30M PRN IV 07/16/25 08:00 Enoxaparin Sodium 80 mg Q12HR SC 07/16/25 22:00 07/21/25 09:27 80 MG Ceftriaxone Sodium 50 ml @ 100 mls/hr DAILY@09 IV 07/17/25 09:00 07/21/25 09:27 100 MLS/HR Vancomycin HCl 0 ml @ 0 mls/hr UD IV 07/16/25 13:30 Furosemide 40 mg DAILY IV 07/17/25 10:00 07/21/25 09:28 40 MG Atorvastatin Calcium 40 mg HS PO 07/16/25 22:00 07/20/25 20:56 40 MG Budesonide 0.25 mg BID NEB 07/16/25 22:00 07/21/25 10:16 0.25 MG Levothyroxine Sodium 100 mcg QAM@0600 PO 07/17/25 06:00 07/21/25 05:25 100 MCG Sildenafil Citrate 20 mg TID PO 07/16/25 22:00 07/21/25 12:26 20 MG Patient Own Medication 32 DAILY@0900,1300,1700,2100 IN 07/16/25 17:00 07/21/25 17:03 32 Levothyroxine Sodium 25 mcg QAM@0600 PO 07/17/25 06:00 07/21/25 05:25 25 MCG Oseltamivir Phosphate 75 mg Q12HR PO 07/17/25 22:00 07/22/25 21:59 07/21/25 09:28 75 MG Methylprednisolone Sodium Succinate 40 mg Q8HR IV 07/18/25 14:00 07/21/25 12:58 40 MG Vancomycin HCl 100 ml @ 100 mls/hr Q12H IV 07/20/25 17:00 07/21/25 17:05 100 MLS/HR Pantoprazole Sodium 40 mg DAILY IV 07/22/25 10:00 Patient Own Medication 32 Q4HR IN 07/24/25 09:00 laboratory and microbiology Laboratory Tests 07/21/25 04:50 Test 07/21/25 04:50 Range/Units Serum Glucose 104 74-106 mg/dL Assessment/Plan Impression Acute hypoxemic respiratory failure Pulmonary hypertension Influenza B pneumonia Pulmonary fibrosis Shock Patient seen and examined Events isolated for infl B low oxygen requirements on nasal 02 Labs and imaging reviewed CTA of the chest shows no evidence of pulmonary embolism Honeycombing present from underlying lung disease and bronchiectasis Management Supplemental oxygen Titrate to maintain sats 90% or above Incentive spirometry Continue antibiotics F/u cultures Bronchodilators Tamiflu course- recommend 5 days of treatment Steroids- Solumedrol 40mg IV TID Monitor renal function Monitor electrolytes Supplement as needed Continue Sildenafil for pulmonary hypertension DVT prophylaxis Dietary Evaluation Review Comments: Continue current plan of care Expected Outcomes/Goals: To meet >75% estimated needs Fu 3-5 days Plan discussed with: Patient HO COELHO MD Jul 21, 2025 19:50
--- NOTE | 2025-07-21 23:49 | DVHPN2 ---
Progress Note - Dictate Date Seen: Jul 21, 2025 Medical Necessity Reason Pt with a Central, PICC or Fol: Yes The following are medically ne: Barbour Catheter Subjective Patient was seen and evaluated in follow up. Patient remains on Oxymizer at 10 L. The patient is complaining of a headache from steroids as well as SOB. K 3.4, CA 8. Telemetry reviewed. vital signs Vital Sign Date Time Temp Pulse Resp B/P (MAP) Pulse Ox O2 Delivery O2 Flow Rate FiO2 07/21/25 12:36 98.9 58 20 110/79 (89) 98 98.9 07/21/25 10:20 Oxymizer 10 N/A Total Intake and Output 07/20/25 07/20/25 07/21/25 15:00 23:00 07:00 Intake Total 100 ml 800 ml 2140 ml Output Total 1400 ml 240 ml Balance 100 ml -600 ml 1900 ml medications Current Medications Medications Dose Ordered Sig/[place] Route Start Time Stop Time Status Last Admin Dose Admin Acetaminophen/ Hydrocodone Bitart 1 tab Q4HP PRN PO 07/16/25 08:00 07/21/25 09:26 1 TAB Ondansetron HCl 4 mg Q4HP PRN IV 07/16/25 08:00 07/16/25 23:29 4 MG Docusate Sodium 100 mg BIDPRN PRN PO 07/16/25 08:00 07/18/25 22:31 100 MG Acetaminophen 650 mg Q6HP PRN PO 07/16/25 08:00 07/21/25 12:26 650 MG Morphine Sulfate 2 mg Q4HPRN PRN IV 07/16/25 08:00 Nitroglycerin 0.4 mg Q5MINP PRN SL 07/16/25 08:00 Hold Morphine Sulfate 2 mg Q30M PRN IV 07/16/25 08:00 Enoxaparin Sodium 80 mg Q12HR SC 07/16/25 22:00 07/21/25 09:27 80 MG Ceftriaxone Sodium 50 ml @ 100 mls/hr DAILY@09 IV 07/17/25 09:00 07/21/25 09:27 100 MLS/HR Vancomycin HCl 0 ml @ 0 mls/hr UD IV 07/16/25 13:30 Furosemide 40 mg DAILY IV 07/17/25 10:00 07/21/25 09:28 40 MG Atorvastatin Calcium 40 mg HS PO 07/16/25 22:00 07/20/25 20:56 40 MG Budesonide 0.25 mg BID NEB 07/16/25 22:00 07/21/25 10:16 0.25 MG Levothyroxine Sodium 100 mcg QAM@0600 PO 07/17/25 06:00 07/21/25 05:25 100 MCG Sildenafil Citrate 20 mg TID PO 07/16/25 22:00 07/21/25 12:26 20 MG Patient Own Medication 32 DAILY@0900,1300,1700,2100 IN 07/16/25 17:00 07/21/25 12:57 32 Levothyroxine Sodium 25 mcg QAM@0600 PO 07/17/25 06:00 07/21/25 05:25 25 MCG Oseltamivir Phosphate 75 mg Q12HR PO 07/17/25 22:00 07/22/25 21:59 07/21/25 09:28 75 MG Methylprednisolone Sodium Succinate 40 mg Q8HR IV 07/18/25 14:00 07/21/25 12:58 40 MG Vancomycin HCl 100 ml @ 100 mls/hr Q12H IV 07/20/25 17:00 07/21/25 05:24 100 MLS/HR Pantoprazole Sodium 40 mg DAILY IV 07/22/25 10:00 objective GENERAL: Alert and oriented x 3. No acute distress. EYES: PERRL, EOMI. Anicteric. HENT: Moist mucous membranes. LUNGS: Clear to auscultation bilaterally. CARDIOVASCULAR: Regular rate and rhythm. ABDOMEN: Soft, nontender and nondistended. EXTREMITIES: No edema. NEUROLOGIC: No focal neurological deficits. SKIN: Warm, dry. laboratory and microbiology Laboratory Tests 07/21/25 04:50 Test 07/21/25 04:50 Range/Units Serum Glucose 104 74-106 mg/dL Problem List NSTEMI. Rule out structural heart disease. Tricuspid valve regurgitation. Septic shock vs cardiogenic, ?Mixed. Severe hypokalemia. Severe pulmonary hypertension. Pulmonary fibrosis on continuous home O2. Transaminitis. History of tobacco use. Remote history of drug use. Positive Influenza B. Assessment/Plan Continued all current supportive medical care. Tamiflu. Morphine and [place] for pain management. IV antibiotics as ordered. GI and DVT prophylactics. Diuretics with Lasix. Additional plan as per the hospital course. Dietary Evaluation Review Comments: Continue current plan of care Expected Outcomes/Goals: To meet >75% estimated needs Fu 3-5 days Plan discussed with: Patient SHANTEL ZAPATA MD Jul 21, 2025 13:15
[2025-07-22] VITALS (13 sets, daily range): BP systolic 94–115; BP diastolic 72–85; PULSE 56–82; RESP 16–20; TEMP 97.5–98.2; O2SAT 95–100
[2025-07-22 05:08] LABS: Hematocrit 41.3 % (36.0-46.0); Hemoglobin 13.9 g/dL (12.2-16.2); Mean Corpuscular Hemoglobin 33.2 pg (28.0-32.0); Mean Corpuscular Volume 98.5 fL (80.0-100.0); Nucleated Red Blood Cells % 0.0 %
[2025-07-22 05:16] LABS: Anion Gap 9 (5-15); Carbon Dioxide 28 mmol/L (20-31); Chloride 100 mmol/L (98-107); Potassium 3.6 mmol/L (3.5-5.1); Sodium 137 mmol/L (136-145)
[2025-07-22 05:22] LABS: BUN/Creatinine Ratio 26.2 (10.0-20.0); Blood Urea Nitrogen 17 mg/dL (9-23)
[2025-07-22 05:27] LABS: Glucose 147 mg/dL (74-106)
[2025-07-22 05:28] LABS: Calcium 8.0 mg/dL (8.7-10.4)
[2025-07-22] MEDS: PANTOPRAZOLE 40 MG/10 ML VIAL INJ IV SCH (09:20)
[2025-07-22] MEDS: methylPREDNISolone SOD SUCC 40 MG/ML VL IV SCH (09:30)
--- NOTE | 2025-07-22 11:18 | DVHPN2 ---
Subjective The patient is seen and examined at bedside. The patient wean off high-flow. Now on Oxymizer. Complain of shortness for breath. Also complains that steroid make her having bad headache. The patient is on 8 L of Oxymizer now switched to 6 L of Oxymizer. The patient has 5 L of nasal cannula oxygen at home. Reviewed: Care Plan, H&P, Labs, Medications, Previous Orders, Radiology Changes from previous H/P or p: No Changes Eyes: No Pain, No Vision change, No Conjunctivae inflammation, No Eyelid inflammation, No Other, No Redness ENT: No Ear pain, No Ear discharge, No Nose pain, No Nose discharge, No Nose congestion, No Mouth pain, No Mouth swelling, No Throat pain, No Throat swelling, No Other Cardiovascular: No Chest Pain, No Palpitations, No Orthopnea, No Paroxysmal Noc. Dyspnea, No Edema, No Lt Headedness, No Other Respiratory: No Cough, No Dry; Shortness of breath, SOB with excertion; No Wheezing, No Hemoptysis, No Pleuritic Pain, No Sputum, No Other Gastrointestinal: Nausea; No Vomiting, No Abdominal Pain, No Diarrhea, No Constipation, No Melena, No Hematochezia, No Other Genitourinary: No Dysuria, No Frequency, No Incontinence, No Hematuria, No Retention, No Other Musculoskeletal: No other, No neck pain, No shoulder pain, No arm pain, No back pain, No hand pain, No leg pain, No foot pain Skin: No Rash, No Lesions, No Jaundice, No Bruising, No Other Objective Vitals Vital Signs Date Time Temp Pulse Resp B/P (MAP) Pulse Ox O2 Delivery O2 Flow Rate FiO2 07/22/25 10:04 96 Oxymizer 9 N/A 07/22/25 10:03 67 18 07/22/25 09:20 114/77 07/22/25 09:00 98.0 98.0 Intake/Output Intake and Output 07/22/25 07:00 Intake Total 850 ml Output Total 1400 ml Balance -550 ml Intake Oral 700 ml IV Total 150 ml Output Urine Total 1400 ml # Bowel Movements 1 General Appearance: Alert, Oriented X3, Cooperative, mild distress HEENT: Atraumatic, PERRLA, EOMI, Mucous membr. moist/pink Neck: Supple Lungs: Clear to auscultation, Normal air movement Cardiovascular: Regular rate, Normal S1, Normal S2, No murmurs, Gallops, Rubs Abdomen: Normal bowel sounds, Soft, No tenderness Neuro: Cranial nerves 3-12 NL Psych/Mental Status: Mental status NL Medications Current Medications Medications Dose Ordered Sig/Lencho Route Start Time Stop Time Status Last Admin Dose Admin Acetaminophen/ Hydrocodone Bitart 1 tab Q4HP PRN PO 07/16/25 08:00 07/21/25 09:26 1 TAB Ondansetron HCl 4 mg Q4HP PRN IV 07/16/25 08:00 07/16/25 23:29 4 MG Docusate Sodium 100 mg BIDPRN PRN PO 07/16/25 08:00 07/18/25 22:31 100 MG Acetaminophen 650 mg Q6HP PRN PO 07/16/25 08:00 07/22/25 08:26 650 MG Morphine Sulfate 2 mg Q4HPRN PRN IV 07/16/25 08:00 Nitroglycerin 0.4 mg Q5MINP PRN SL 07/16/25 08:00 Hold Morphine Sulfate 2 mg Q30M PRN IV 07/16/25 08:00 Enoxaparin Sodium 80 mg Q12HR SC 07/16/25 22:00 07/22/25 09:20 80 MG Ceftriaxone Sodium 50 ml @ 100 mls/hr DAILY@09 IV 07/17/25 09:00 07/22/25 09:20 100 MLS/HR Vancomycin HCl 0 ml @ 0 mls/hr UD IV 07/16/25 13:30 Furosemide 40 mg DAILY IV 07/17/25 10:00 07/22/25 09:20 40 MG Atorvastatin Calcium 40 mg HS PO 07/16/25 22:00 07/21/25 21:02 40 MG Budesonide 0.25 mg BID NEB 07/16/25 22:00 07/22/25 10:03 0.25 MG Levothyroxine Sodium 100 mcg QAM@0600 PO 07/17/25 06:00 07/22/25 05:36 100 MCG Sildenafil Citrate 20 mg TID PO 07/16/25 22:00 07/22/25 05:36 20 MG Patient Own Medication 32 DAILY@0900,1300,1700,2100 IN 07/16/25 17:00 07/22/25 09:04 32 Levothyroxine Sodium 25 mcg QAM@0600 PO 07/17/25 06:00 07/22/25 05:36 25 MCG Oseltamivir Phosphate 75 mg Q12HR PO 07/17/25 22:00 07/22/25 21:59 07/22/25 09:20 75 MG Vancomycin HCl 100 ml @ 100 mls/hr Q12H IV 07/20/25 17:00 07/21/25 17:05 100 MLS/HR Pantoprazole Sodium 40 mg DAILY IV 07/22/25 10:00 07/22/25 09:20 40 MG Patient Own Medication 32 Q4HR IN 07/24/25 09:00 Methylprednisolone Sodium Succinate 40 mg Q12HR IV 07/22/25 10:00 Laboratory Results Laboratory Tests 07/22/25 04:19 Chemistry Test 07/22/25 04:19 Calcium Level 8.0 mg/dL (8.7-10.4) L Urinalysis Test 07/20/25 12:00 Urine Color Light-yellow (Yellow) Urine Clarity Clear (Clear) Urine pH 6.0 (5.0-9.0) Urine Specific [place] 1.012 (1.001-1.035) Urine Protein Negative (Negative) Urine Ketones Negative (Negative) Urine Blood Negative /uL (Negative) Urine Nitrite Negative (Negative) Urine Bilirubin Negative (Negative) Urine Urobilinogen Normal mg/dL (Negative) Urine Leukocyte Esterase Negative /uL (Negative) Urine RBC None seen /hpf (0 - 4) Urine Microscopic WBC < 1 /HPF (0-5) Urine Squamous Epithelial Cells Few /hpf (<5) Urine Bacteria None seen /hpf (None Seen) Urine Hyaline Casts Few /lpf (0 - 2) Urine Mucus Few (None Seen) Urine Yeast (Budding) Occasional /hpf (None Urine Glucose Normal mg/dL (Normal) Microbiology Microbiology Date/Time Source Procedure Growth Status 07/19/25 23:00 Nose MRSA Screen - Final Complete 07/16/25 01:40 Blood Blood Culture - Final NO GROWTH AFTER 5 DAYS OF INCUBATION. Complete Labs and/or images reviewed: Labs reviewed by me Assessment/Plan Assessment/Plan Acute hypoxic respiratory failure, on high-flow oxygen Elevated troponin, R/O ACS, Possible cardiogenic shock, Sepsis Lactic acidosis, R/O PE, Pulmonary hypertension, oxygen dependant, Influenza B positive Plan: Appreciate cardiology input Consider pulmonology consult for severe pulmonary hypertension, Vasopressors wean off ECHO, A1c, lipid panel, TSH, D-Dimer, Bilateral lower extremity ultrasound, Consider CT angio of chest, Continue IV antibiotics, Blood cultures, UA, Bilateral lower extremity ultrasound, CT angio of chest, Home medications reconciled, Tamiflu 75 mg p.o. b.i.d. Down grade to telemetry. Continuing current management. I will stopped the Solu-Medrol. I will give Tylenol PRN for headache. Also add Toradol 30 mg IV Q 8 hours prn for severe headache. We will try to wean the patient to her home baseline which is 5 L of oxygen nasal cannula continuously before discharge her. This medical document was created using an electronic medical record system with [employer] computerized dictation system. Although this document has been carefully reviewed, there may still be some phonetic and typographical errors. These areas are purely typographical due to imperfections of the software programs, and do not reflect any compromise in the patient's medical care. Plan discussed with: Patient My Orders Orders - TAMI PRINGLE MD Procedure Category Date Status Time Pantoprazole PHA 07/22/25 In Process (Protonix) 10:00 Patients Own PHA 07/24/25 In Process Medication 09:00 Pt Request For Service PT 07/21/25 Logged 16:21 Methylprednisolone PHA 07/22/25 In Process Sod Succ (Solu Medrol 10:00 Ok To Change [place] ORDERS 07/22/25 Transmitted 07:35 Date of Service: Jul 22, 2025 Billing Provider: TAMI PRINGLE MD Common Visit Codes: [id number] INP/OBS CARE(HIGH) TAMI PRINGLE MD Jul 22, 2025 11:18
[2025-07-22] MEDS ORDERED: KETOROLAC TROMETH 30 MG/ML 1ML VIAL IV PRN ×2 (12:00→12:45)
--- NOTE | 2025-07-22 12:55 | ECG ---
[facility] Test Date: 2025-07-16 Test Time: 01:24:00 Pat Name: DEBRA RIVERA Department: Room: 0234T A Gender: F [employer] Operator: IFEOMA : 1965 Requested By: ALVARO MADRID Order Number: [id number] Reading MD: Tomás Reid Measurements Intervals [place] Rate: 111 P: 42 MI: 138 QRS: 132 QRSD: 109 T: -21 QT: 359 QTc: 488 Interpretive Statements Sinus tachycardia Multiform ventricular premature complexes Probable left atrial enlargement Right ventricular hypertrophy Nonspecific T abnormalities, inferior leads Borderline prolonged QT interval Electronically Signed On 07-27-2025 18:47:00 PDT by Tomás Reid Please click the below link to view image of tracing.
--- NOTE | 2025-07-22 12:58 | ECG ---
[facility] Test Date: 2025-07-16 Test Time: 11:18:05 Pat Name: DEBRA RIVERA Department: Room: 0234T A Gender: F Banking Supervisor: FARHAT : 1965 Requested By: ALVARO MADRID Order Number: [id number] Reading MD: Tomás Reid Measurements Intervals [place] Rate: 87 P: 47 MO: 169 QRS: 136 QRSD: 85 T: -29 QT: 379 QTc: 456 Interpretive Statements Sinus rhythm Probable left atrial enlargement RVH with secondary repolarization abnrm Borderline ST elevation, lateral leads Baseline wander in lead(s) V1,V2 Electronically Signed On 07-27-2025 18:48:17 PDT by Tomás Reid Please click the below link to view image of tracing.
[2025-07-22] MEDS: KETOROLAC TROMETH 30 MG/ML 1ML VIAL IV PRN (13:11)
--- NOTE | 2025-07-22 23:17 | DVHPN2 ---
Progress Note - Dictate Date Seen: Jul 22, 2025 Medical Necessity Reason Pt with a Central, PICC or Fol: Yes The following are medically ne: [place] Catheter Subjective Patient was seen and evaluated in follow up. Patient remain on Oxymizer at 9 L. Patient is complaining of a migraine headache. Patient is declining steroids due to causing her a headache. Telemetry reviewed. vital signs Vital Sign Date Time Temp Pulse Resp B/P (MAP) Pulse Ox O2 Delivery O2 Flow Rate FiO2 07/22/25 10:04 96 Oxymizer 9 N/A 07/22/25 10:03 67 18 07/22/25 09:20 114/77 07/22/25 09:00 98.0 98.0 Total Intake and Output 07/21/25 07/21/25 07/22/25 15:00 23:00 07:00 Intake Total 50 ml 400 ml 400 ml Output Total 900 ml 500 ml Balance 50 ml -500 ml -100 ml medications Current Medications Medications Dose Ordered Sig/Lencho Route Start Time Stop Time Status Last Admin Dose Admin Acetaminophen/ Hydrocodone Bitart 1 tab Q4HP PRN PO 07/16/25 08:00 07/21/25 09:26 1 TAB Ondansetron HCl 4 mg Q4HP PRN IV 07/16/25 08:00 07/16/25 23:29 4 MG Docusate Sodium 100 mg BIDPRN PRN PO 07/16/25 08:00 07/18/25 22:31 100 MG Acetaminophen 650 mg Q6HP PRN PO 07/16/25 08:00 07/22/25 08:26 650 MG Morphine Sulfate 2 mg Q4HPRN PRN IV 07/16/25 08:00 Nitroglycerin 0.4 mg Q5MINP PRN SL 07/16/25 08:00 Hold Morphine Sulfate 2 mg Q30M PRN IV 07/16/25 08:00 Enoxaparin Sodium 80 mg Q12HR SC 07/16/25 22:00 07/22/25 09:20 80 MG Ceftriaxone Sodium 50 ml @ 100 mls/hr DAILY@09 IV 07/17/25 09:00 07/22/25 09:20 100 MLS/HR Vancomycin HCl 0 ml @ 0 mls/hr UD IV 07/16/25 13:30 Furosemide 40 mg DAILY IV 07/17/25 10:00 07/22/25 09:20 40 MG Atorvastatin Calcium 40 mg HS PO 07/16/25 22:00 07/21/25 21:02 40 MG Budesonide 0.25 mg BID NEB 07/16/25 22:00 07/22/25 10:03 0.25 MG Levothyroxine Sodium 100 mcg QAM@0600 PO 07/17/25 06:00 07/22/25 05:36 100 MCG Sildenafil Citrate 20 mg TID PO 07/16/25 22:00 07/22/25 05:36 20 MG Patient Own Medication 32 DAILY@0900,1300,1700,2100 IN 07/16/25 17:00 07/22/25 09:04 32 Levothyroxine Sodium 25 mcg QAM@0600 PO 07/17/25 06:00 07/22/25 05:36 25 MCG Oseltamivir Phosphate 75 mg Q12HR PO 07/17/25 22:00 07/22/25 21:59 07/22/25 09:20 75 MG Vancomycin HCl 100 ml @ 100 mls/hr Q12H IV 07/20/25 17:00 07/21/25 17:05 100 MLS/HR Pantoprazole Sodium 40 mg DAILY IV 07/22/25 10:00 07/22/25 09:20 40 MG Patient Own Medication 32 Q4HR IN 07/24/25 09:00 Ketorolac Tromethamine 30 mg Q8HP PRN IV 07/22/25 12:00 07/27/25 11:59 UNV objective GENERAL: Alert and oriented x 3. No acute distress. EYES: PERRL, EOMI. Anicteric. HENT: Moist mucous membranes. LUNGS: Clear to auscultation bilaterally. CARDIOVASCULAR: Regular rate and rhythm. ABDOMEN: Soft, nontender and nondistended. EXTREMITIES: No edema. NEUROLOGIC: No focal neurological deficits. SKIN: Warm, dry. laboratory and microbiology Laboratory Tests 07/22/25 04:19 Test 07/22/25 04:19 Range/Units Serum Glucose 147 H 74-106 mg/dL Problem List NSTEMI. Rule out structural heart disease. Tricuspid valve regurgitation. Septic shock vs cardiogenic, ?Mixed. Severe hypokalemia. Severe pulmonary hypertension. Pulmonary fibrosis on continuous home O2. Transaminitis. History of tobacco use. Remote history of drug use. Positive Influenza B. Assessment/Plan Continued all current supportive medical care. Tamiflu. Diuretics with Lasix. IV antibiotics as ordered. GI and DVT prophylactics. Morphine and Tylenol for pain management. Additional plan as per the hospital course. Dietary Evaluation Review Comments: Continue current plan of care Expected Outcomes/Goals: To meet >75% estimated needs Fu 3-5 days Plan discussed with: Patient SHANTEL ZAPATA MD Jul 22, 2025 12:21
[2025-07-23] VITALS (9 sets, daily range): BP systolic 95–110; BP diastolic 59–76; PULSE 63–75; RESP 16–18; TEMP 97.8–98.6; O2SAT 96–100
[2025-07-23 07:06] LABS: Anion Gap 8 (5-15); Sodium 139 mmol/L (136-145)
[2025-07-23 07:08] LABS: Calcium 8.0 mg/dL (8.7-10.4); Carbon Dioxide 33 mmol/L (20-31); Chloride 98 mmol/L (98-107); Potassium 3.3 mmol/L (3.5-5.1)
[2025-07-23 07:12] LABS: BUN/Creatinine Ratio 20.7 (10.0-20.0); Blood Urea Nitrogen 18 mg/dL (9-23); Glucose 76 mg/dL (74-106)
[2025-07-23 07:14] LABS: Hematocrit 38.8 % (36.0-46.0); Hemoglobin 13.7 g/dL (12.2-16.2); Mean Corpuscular Hemoglobin 34.0 pg (28.0-32.0); Mean Corpuscular Volume 96.4 fL (80.0-100.0); Nucleated Red Blood Cells % 0.0 %
--- NOTE | 2025-07-23 11:20 | DVHPN2 ---
Subjective The patient is seen and examined at bedside. The patient wean off high-flow. Now on Oxymizer. Complain of shortness for breath. Also complains that steroid make her having bad headache. The patient is on 8 L of Oxymizer now switched to 6 L of Oxymizer. The patient has 5 L of nasal cannula oxygen at home. Reviewed: Care Plan, H&P, Labs, Medications, Previous Orders, Radiology Eyes: No Pain, No Vision change, No Conjunctivae inflammation, No Eyelid inflammation, No Other, No Redness ENT: No Ear pain, No Ear discharge, No Nose pain, No Nose discharge, No Nose congestion, No Mouth pain, No Mouth swelling, No Throat pain, No Throat swelling, No Other Cardiovascular: No Chest Pain, No Palpitations, No Orthopnea, No Paroxysmal Noc. Dyspnea, No Edema, No Lt Headedness, No Other Respiratory: No Cough, No Dry; Shortness of breath, SOB with excertion; No Wheezing, No Hemoptysis, No Pleuritic Pain, No Sputum, No Other Gastrointestinal: Nausea; No Vomiting, No Abdominal Pain, No Diarrhea, No Constipation, No Melena, No Hematochezia, No Other Genitourinary: No Dysuria, No Frequency, No Incontinence, No Hematuria, No Retention, No Other Musculoskeletal: No other, No neck pain, No shoulder pain, No arm pain, No back pain, No hand pain, No leg pain, No foot pain Skin: No Rash, No Lesions, No Jaundice, No Bruising, No Other Objective Vitals Vital Signs Date Time Temp Pulse Resp B/P (MAP) Pulse Ox O2 Delivery O2 Flow Rate FiO2 07/23/25 09:19 64 18 104/70 96 4.5 07/23/25 09:00 98.2 98.2 07/22/25 21:59 Oxymizer N/A Intake/Output Intake and Output 07/23/25 07:00 Intake Total 1500 ml Output Total 1900 ml Balance -400 ml Intake Oral 1450 ml IV Total 50 ml Output Urine Total 1900 ml # Voids 1 # Bowel Movements 1 General Appearance: Alert, Oriented X3, Cooperative, mild distress HEENT: Atraumatic, PERRLA, EOMI, Mucous membr. moist/pink Neck: Supple Lungs: Clear to auscultation, Normal air movement Cardiovascular: Regular rate, Normal S1, Normal S2, No murmurs, Gallops, Rubs Abdomen: Normal bowel sounds, Soft, No tenderness Neuro: Cranial nerves 3-12 NL Psych/Mental Status: Mental status NL Medications Current Medications Medications Dose Ordered Sig/Lencho Route Start Time Stop Time Status Last Admin Dose Admin Acetaminophen/ Hydrocodone Bitart 1 tab Q4HP PRN PO 07/16/25 08:00 07/21/25 09:26 1 TAB Ondansetron HCl 4 mg Q4HP PRN IV 07/16/25 08:00 07/16/25 23:29 4 MG Docusate Sodium 100 mg BIDPRN PRN PO 07/16/25 08:00 07/18/25 22:31 100 MG Acetaminophen 650 mg Q6HP PRN PO 07/16/25 08:00 07/22/25 08:26 650 MG Morphine Sulfate 2 mg Q4HPRN PRN IV 07/16/25 08:00 Nitroglycerin 0.4 mg Q5MINP PRN SL 07/16/25 08:00 Hold Morphine Sulfate 2 mg Q30M PRN IV 07/16/25 08:00 Enoxaparin Sodium 80 mg Q12HR SC 07/16/25 22:00 07/23/25 09:05 80 MG Ceftriaxone Sodium 50 ml @ 100 mls/hr DAILY@09 IV 07/17/25 09:00 07/23/25 09:09 100 MLS/HR Vancomycin HCl 0 ml @ 0 mls/hr UD IV 07/16/25 13:30 Furosemide 40 mg DAILY IV 07/17/25 10:00 07/23/25 09:05 40 MG Atorvastatin Calcium 40 mg HS PO 07/16/25 22:00 07/22/25 21:05 40 MG Budesonide 0.25 mg BID NEB 07/16/25 22:00 07/23/25 07:07 0.25 MG Levothyroxine Sodium 100 mcg QAM@0600 PO 07/17/25 06:00 07/23/25 05:37 100 MCG Sildenafil Citrate 20 mg TID PO 07/16/25 22:00 07/23/25 05:37 20 MG Patient Own Medication 32 DAILY@0900,1300,1700,2100 IN 07/16/25 17:00 07/23/25 09:08 32 Levothyroxine Sodium 25 mcg QAM@0600 PO 07/17/25 06:00 07/23/25 05:36 25 MCG Pantoprazole Sodium 40 mg DAILY IV 07/22/25 10:00 07/23/25 09:05 40 MG Patient Own Medication 32 Q4HR IN 07/24/25 09:00 Ketorolac Tromethamine 30 mg Q8HP PRN IV 07/22/25 12:45 07/27/25 12:44 07/22/25 22:43 30 MG Laboratory Results Laboratory Tests 07/23/25 05:22 Chemistry Test 07/23/25 05:22 Calcium Level 8.0 mg/dL (8.7-10.4) L Urinalysis Test 07/20/25 12:00 Urine Color Light-yellow (Yellow) Urine Clarity Clear (Clear) Urine pH 6.0 (5.0-9.0) Urine Specific [place] 1.012 (1.001-1.035) Urine Protein Negative (Negative) Urine Ketones Negative (Negative) Urine Blood Negative /uL (Negative) Urine Nitrite Negative (Negative) Urine Bilirubin Negative (Negative) Urine Urobilinogen Normal mg/dL (Negative) Urine Leukocyte Esterase Negative /uL (Negative) Urine RBC None seen /hpf (0 - 4) Urine Microscopic WBC < 1 /HPF (0-5) Urine Squamous Epithelial Cells Few /hpf (<5) Urine Bacteria None seen /hpf (None Seen) Urine Hyaline Casts Few /lpf (0 - 2) Urine Mucus Few (None Seen) Urine Yeast (Budding) Occasional /hpf (None Urine Glucose Normal mg/dL (Normal) Microbiology Microbiology Date/Time Source Procedure Growth Status 07/19/25 23:00 Nose MRSA Screen - Final Complete 07/16/25 01:40 Blood Blood Culture - Final NO GROWTH AFTER 5 DAYS OF INCUBATION. Complete Assessment/Plan Assessment/Plan Acute hypoxic respiratory failure, on high-flow oxygen Elevated troponin, R/O ACS, Possible cardiogenic shock, Sepsis Lactic acidosis, R/O PE, Pulmonary hypertension, oxygen dependant, Influenza B positive Plan: Appreciate cardiology input Consider pulmonology consult for severe pulmonary hypertension, Vasopressors wean off ECHO, A1c, lipid panel, TSH, D-Dimer, Bilateral lower extremity ultrasound, Consider CT angio of chest, Continue IV antibiotics, Blood cultures, UA, Bilateral lower extremity ultrasound, CT angio of chest, Home medications reconciled, Tamiflu 75 mg p.o. b.i.d. Down grade to telemetry. Continuing current management. I will stopped the Solu-Medrol. I will give Tylenol PRN for headache. Also add Toradol 30 mg IV Q 8 hours prn for severe headache. We will try to wean the patient to her home baseline which is 5 L of oxygen nasal cannula continuously before discharge her. This medical document was created using an electronic medical record system with [employer] computerized dictation system. Although this document has been carefully reviewed, there may still be some phonetic and typographical errors. These areas are purely typographical due to imperfections of the software programs, and do not reflect any compromise in the patient's medical care. My Orders Orders - TAMI PRINGLE MD Procedure Category Date Status Time D/C Km [place] 07/22/25 In Process 11:58 Ketorolac Injection PHA 07/22/25 In Process (Toradol Injection) 12:45 TAMI PRINGLE MD Jul 23, 2025 11:20
--- NOTE | 2025-07-23 12:07 | DVHDS2 ---
Discharge Summary Date of Admission Jul 16, 2025 at 07:48 Date of Discharge: Jul 23, 2025 Admitting Diagnosis Acute hypoxic respiratory failure, on high-flow oxygen Elevated troponin, R/O ACS, Possible cardiogenic shock, Sepsis Lactic acidosis, R/O PE, Pulmonary hypertension, oxygen dependant, Labs/Diagnostic Data: Laboratory Results Test 07/23/25 05:22 07/22/25 04:19 07/20/25 12:00 07/19/25 10:18 White Blood Count 9.0 10^3/uL (4.4-10.8) Red Blood Count 4.03 10^6/uL (4.0-5.20) Hemoglobin 13.7 g/dL (12.2-16.2) Hematocrit 38.8 % (36.0-46.0) Mean Corpuscular Volume 96.4 fL (80.0-100.0) Mean Corpuscular Hemoglobin 34.0 pg (28.0-32.0) Mean Corpuscular Hemoglobin Concent 35.2 g/dL (32.0-36.0) Red Cell Distribution Width 15.4 % (11.8-14.3) Platelet Count 155 10^3/uL (140-450) Mean Platelet Volume 9.4 fL (6.9-10.8) Neutrophils (%) (Auto) 60.1 % (37.0-80.0) Lymphocytes (%) (Auto) 30.5 % (10.0-50.0) Monocytes (%) (Auto) 7.8 % (0.0-12.0) Eosinophils (%) (Auto) 1.5 % (0.0-7.0) Basophils (%) (Auto) 0.1 % (0.0-2.0) Neutrophils # (Auto) 5.4 10 ^3/uL (1.6-8.6) Lymphocytes # (Auto) 2.7 10 ^3/uL (0.4-5.4) Monocytes # (Auto) 0.7 10 ^3/uL (0-1.3) Eosinophils # (Auto) 0.1 10 ^3/uL (0-0.8) Basophils # (Auto) 0 10 ^3/uL (0-0.2) Nucleated Red Blood Cells 0.0 % Sodium Level 139 mmol/L (136-145) Potassium Level 3.3 mmol/L (3.5-5.1) Chloride Level 98 mmol/L (98-107) Carbon Dioxide Level 33 mmol/L (20-31) Anion Gap 8 (5-15) Blood Urea Nitrogen 18 mg/dL (9-23) Creatinine 0.87 mg/dL (0.550-1.02) Glomerular Filtration Rate Calc 76 mL/min (>90) BUN/Creatinine Ratio 20.7 (10.0-20.0) Serum Glucose 76 mg/dL (74-106) Calcium Level 8.0 mg/dL (8.7-10.4) Random Vancomycin Level 12.1 ug/mL (5-10) Vancomycin Level Trough 22.6 ug/mL (5-10) Urine Color Light-yellow (Yellow) Urine Clarity Clear (Clear) Urine pH 6.0 (5.0-9.0) Urine Specific [place] 1.012 (1.001-1.035) Urine Protein Negative (Negative) Urine Ketones Negative (Negative) Urine Blood Negative /uL (Negative) Urine Nitrite Negative (Negative) Urine Bilirubin Negative (Negative) Urine Urobilinogen Normal mg/dL (Negative) Urine Leukocyte Esterase Negative /uL (Negative) Urine RBC None seen /hpf (0 - 4) Urine Microscopic WBC < 1 /HPF (0-5) Urine Squamous Epithelial Cells Few /hpf (<5) Urine Bacteria None seen /hpf (None Seen) Urine Hyaline Casts Few /lpf (0 - 2) Urine Mucus Few (None Seen) Urine Yeast (Budding) Occasional /hpf (None Urine Glucose Normal mg/dL (Normal) Blood Gas Specimen Type Arterial Blood Gas Sample Site Right radial Blood Gas Patient Temperature 37.0 Arterial Blood Date Drawn [id number] Arterial Blood pH 7.495 (7.350-7.450) Arterial Blood Partial Pressure CO2 28.8 mmHg (32.0-45.0) Arterial Blood Partial Pressure O2 70.3 mmHg (83.0-108.0) Arterial Blood HCO3 21.7 mmol/L (21.0-28.0) Arterial Blood Oxygen Saturation 94.5 % (94.0-98.0) Arterial Blood Base Excess -0.3 mmol/L (-2.0-3.0) Arterial Blood Oxyhemoglobin 93.4 % (94.0-98.0) Arterial Blood Carboxyhemoglobin 0.9 % (0.5-1.5) Arterial Blood Methemoglobin 0.3 % (0.0-1.5) Moises Test Yes Blood Gas Total Hemoglobin 14.70 g/dL (12.0-16.0) Blood Gas Liter Flow 30.00 Blood Gas Modality High flow FiO2 % 50.0 Test 07/17/25 03:32 07/17/25 00:00 07/16/25 18:34 07/16/25 12:14 Total Bilirubin 0.6 mg/dL (0.2-1.0) Aspartate Amino Transferase (AST) 67 U/L (13-40) Alanine Aminotransferase (ALT) 32 U/L (7-40) Alkaline Phosphatase 137 U/L (46-116) Total Protein 6.5 g/dL (5.7-8.2) Albumin 3.0 g/dL (3.2-4.8) Influenza Type A Antigen Negative (Negative) Influenza Type B Antigen Positive (Negative) SARS-CoV-2 Antigen (Rapid) Negative (NEGATIVE) Troponin I High Sensitivity 1963 ng/L (</=34) Prothrombin Time 12.1 sec (9.3-11.8) Prothrombin Time INR 1.16 (0.9-1.15) Activated Partial Thromboplast Time 28.7 SEC (24.5-34.5) D-Dimer, Quantitative 1.61 mg/L FEU (0.0-0.49) Lactic Acid Level 2.0 mmol/L (0.4-2.0) Test 07/16/25 09:14 07/16/25 01:42 07/16/25 01:27 Hemoglobin A1c 5.5 % A1C (<5.7) Triglycerides Level 170 mg/dL (< 150) Cholesterol Level 90 mg/dL (< 200) LDL Cholesterol 61 mg/dL (< 100) HDL Cholesterol 20 mg/dL (40-59) Thyroid Stimulating Hormone (TSH) 0.26 uIU/mL (0.55-4.78) Venous Blood pH 7.398 (7.320-7.430) Venous Blood pCO2 at Patient Temp 35.9 mmHg (38.0-54.0) Venous Blood pO2 at Patient Temp < 36.5 mmHg (23.0-48.0) Venous Blood HCO3 21.6 mmol/L (22.0-29.0) Venous Blood Base Excess -2.5 mmol/L (-2.0-3.0) B-Type Natriuretic Peptide 1146.90 pg/mL (0-100) Other Laboratory Tests 07/23/25 05:22 Brief Hx & Hospital Course: This is a 60 years old female with past medical history of pulmonary hypertension requiring home oxygen. She was diagnosis in 2022 and had been worsening. Patient said this year her pulmonary hypertension had been very severe. She on 5 L of nasal cannula at home and mostly bed-bound because severe shortness for breath. She was brought into the hospital by EMS for shortness for breath. The patient said the shortness a breath is very severe to the point that she can hardly lift her head. She also complained of body achiness. Patient also nausea and vomiting. She also had diaphoresis and chest discomfort. The patient was found to have influenza B positive. The patient did not have a flu shot this year. The patient was admitted and required high- flow oxygen. The patient also in sepsis and required vasopressor Levophed. Subsequently the patient able to wean off Levophed. The patient also received IV antibiotic during this hospitalization with ceftriaxone and vancomycin. The patient culture such as blood culture is negative. Patient does have elevation of troponin level. Cardiology was consulted. Recommend 2D echo. 2D echo done showed:lvef >50%,flattened IV septum c/w RV failure,severe RV enlargement and dysfunction noted,severe RA enlarged moderate tricuspid regurg (could be worse),severe plm htn, PASP > 90 mmhg. The the patient was on dobutamine drip and subsequently was weaned off. No further cardiology intervention per grassland conservationist. Appliance Fixer also see the patient. The patient also was put on Solu-Medrol 40 mg IV Q 8 hours. Subsequently we able to wean her off high-flow oxygen and back on Oxymizer. She started out with Oxymizer 8 L in subsequently weaned down to 4.5 L nasal cannula today. The patient will be discharged home today. Advised the patient to follow up with primary care physician 1-2 weeks. Activity as tolerated. Diet per home diet. Physical exam: HEENT: Normocephalic atraumatic pupils equal react to light and accommodation. Extraocular muscles intact, conjunctiva pink, oropharynx moist, no thrush, no exudate. Lymphatic: No lymphadenopathy Cardiovascular exam: S1, S2 was heard. No murmurs, rubs, gallops Lung: Clear on auscultation bilaterally, no wheeze, rale, rhonchi. GI: Abdominal soft, nondistended, nontenderness, positive bowel sounds. Extremity: No crepitus, cyanosis, edema. Pedal pulses present bilateral. Full range of motion. Skin: Normal turgor, no rash. Psych: Alert, oriented x3. Neurology: No focal deficits, cranial nerve II to XII grossly intact. This medical document was created using an electronic medical record system with [employer] dictation system. Although this document has been carefully reviewed, there may still be some phonetic and typographical errors. These areas are purely typographical due to imperfections of the software programs, and do not reflect any compromise in the patient's medical care. Condition at Discharge: Stable Final Diagnosis/Problems List Acute hypoxic respiratory failure, on high-flow oxygen Elevated troponin, secondary to non ST-elevation SD type 2 R/O ACS, Possible cardiogenic shock, resolved Sepsis Lactic acidosis, R/O PE, Pulmonary hypertension, oxygen dependant, Influenza B positive Discharge Disposition: Home Discharge Instruct/Medications Scheduled Atorvastatin Calcium (Atorvastatin Calcium), 1 TAB PO QPM, (Reported) Azithromycin (Zithromax), 250 MG PO DAILY Budesonide (Inhalation) (Budesonide), 0.25 MG IN BID, (Reported) Furosemide (Furosemide), 1 TAB PO BID, (Reported) Levothyroxine Sodium (Levothyroxine Sodium), 1 TAB PO DAILY, (Reported) Sildenafil Citrate (Sildenafil Citrate), 20 MG PO TID, (Reported) Treprostinil (Tyvaso [facility]), 32 MCG IN Q4HR, (Reported) Discharge Statement: "Patient was advised to return to the ER or call 911 if any headaches, dizziness, shortness of breath, chest pain, abdominal pain, bleeding, fevers, or worsening of medical condition. Patient was counseled about treatment plan, medications, possible side effects, patientverbalized understanding. All questions were answered to the best of my ability. This discharge took greater then 30 minutes in planning, reviewing documentation, counseling the patient, and discussing with other team members." ASSESSMENT ASSESSMENT Assessment Date of Service: Jul 23, 2025 Billing Provider: TAMI PRINGLE MD Common Visit Codes: 32704-XWO/OBS DISCH DAY >30min TAMI PRINGLE MD Jul 23, 2025 12:07
[2025-07-23] MEDS ORDERED: AZIT-74 PO (12:09)
[2025-07-23] MEDS: POTASSIUM CHL 20 Meq TABLET PO ONE (12:44)
--- NOTE | 2025-07-23 18:51 | DVHPN2 ---
Progress Note - Dictate Date Seen: Jul 23, 2025 Medical Necessity Reason Pt with a Central, PICC or Fol: Yes The following are medically ne: [place] Catheter Subjective Patient was seen and evaluated in follow up. Patient has no new complaints at this time. Patient denies any cardiac symptoms. Patient is cardiac stable for discharge. Telemetry reviewed. vital signs Vital Sign Date Time Temp Pulse Resp B/P (MAP) Pulse Ox O2 Delivery O2 Flow Rate FiO2 07/23/25 09:19 64 18 104/70 96 4.5 07/23/25 09:00 98.2 98.2 07/23/25 08:00 Oxymizer N/A Total Intake and Output 07/22/25 07/22/25 07/23/25 15:00 23:00 07:00 Intake Total 50 ml 650 ml 800 ml Output Total 1900 ml Balance 50 ml -1250 ml 800 ml medications Current Medications Medications Dose Ordered Sig/Lencho Route Start Time Stop Time Status Last Admin Dose Admin Acetaminophen/ Hydrocodone Bitart 1 tab Q4HP PRN PO 07/16/25 08:00 07/21/25 09:26 1 TAB Ondansetron HCl 4 mg Q4HP PRN IV 07/16/25 08:00 07/16/25 23:29 4 MG Docusate Sodium 100 mg BIDPRN PRN PO 07/16/25 08:00 07/18/25 22:31 100 MG Acetaminophen 650 mg Q6HP PRN PO 07/16/25 08:00 07/22/25 08:26 650 MG Morphine Sulfate 2 mg Q4HPRN PRN IV 07/16/25 08:00 Nitroglycerin 0.4 mg Q5MINP PRN SL 07/16/25 08:00 Hold Morphine Sulfate 2 mg Q30M PRN IV 07/16/25 08:00 Enoxaparin Sodium 80 mg Q12HR SC 07/16/25 22:00 07/23/25 09:05 80 MG Ceftriaxone Sodium 50 ml @ 100 mls/hr DAILY@09 IV 07/17/25 09:00 07/23/25 09:09 100 MLS/HR Vancomycin HCl 0 ml @ 0 mls/hr UD IV 07/16/25 13:30 Furosemide 40 mg DAILY IV 07/17/25 10:00 07/23/25 09:05 40 MG Atorvastatin Calcium 40 mg HS PO 07/16/25 22:00 07/22/25 21:05 40 MG Budesonide 0.25 mg BID NEB 07/16/25 22:00 07/23/25 07:07 0.25 MG Levothyroxine Sodium 100 mcg QAM@0600 PO 07/17/25 06:00 07/23/25 05:37 100 MCG Sildenafil Citrate 20 mg TID PO 07/16/25 22:00 07/23/25 05:37 20 MG Patient Own Medication 32 DAILY@0900,1300,1700,2100 IN 07/16/25 17:00 07/23/25 09:08 32 Levothyroxine Sodium 25 mcg QAM@0600 PO 07/17/25 06:00 07/23/25 05:36 25 MCG Pantoprazole Sodium 40 mg DAILY IV 07/22/25 10:00 07/23/25 09:05 40 MG Patient Own Medication 32 Q4HR IN 07/24/25 09:00 Ketorolac Tromethamine 30 mg Q8HP PRN IV 07/22/25 12:45 07/27/25 12:44 07/22/25 22:43 30 MG objective GENERAL: Alert and oriented x 3. No acute distress. EYES: PERRL, EOMI. Anicteric. HENT: Moist mucous membranes. LUNGS: Clear to auscultation bilaterally. CARDIOVASCULAR: Regular rate and rhythm. ABDOMEN: Soft, nontender and nondistended. EXTREMITIES: No edema. NEUROLOGIC: No focal neurological deficits. SKIN: Warm, dry. laboratory and microbiology Laboratory Tests 07/23/25 05:22 Test 07/23/25 05:22 Range/Units Serum Glucose 76 74-106 mg/dL Problem List NSTEMI. Rule out structural heart disease. Tricuspid valve regurgitation. Septic shock vs cardiogenic, ?Mixed. Severe hypokalemia. Severe pulmonary hypertension. Pulmonary fibrosis on continuous home O2. Transaminitis. History of tobacco use. Remote history of drug use. Positive Influenza B. Assessment/Plan Continued all current supportive medical care. Diuretics with Lasix. IV antibiotics as ordered. GI and DVT prophylactics. Morphine and Tylenol for pain management. Additional plan as per the hospital course. Dietary Evaluation Review Comments: Continue current plan of care Expected Outcomes/Goals: To meet >75% estimated needs Fu 3-5 days Plan discussed with: Patient SHANTEL ZAPATA MD Jul 23, 2025 12:30
[2025-07-24] MEDS ORDERED: TREPROSTINIL IN SCH (09:00)
== END 2025-07-23 16:58 | disposition home health service (06) | DRG 720 ==
LOC: EDSEX 01:20 → EDBD 01:20 → ER 01:20 → OVERFLOW 07:48 → ICU CENTRL 07-19 23:50 → DOU IN ICU 07-19 23:53 → ICU CENTRL 07-19 23:55 → TELE-EAST 07-20 21:56
PROVIDERS: ADMIT Internal Medicine; ATTEND Internal Medicine
PROC: 5A0955A Assistance with Respiratory Ventilation, Greater than 96 Consecutive Hours, High Flow/Velocity Cannula (ICD-10-PCS; 2025-07-16)
PROC: 5A09357 Assistance with Respiratory Ventilation, Less than 24 Consecutive Hours, Continuous Positive Airway Pressure (ICD-10-PCS; principal; 2025-07-17)
PROC: 5A09357 Assistance with Respiratory Ventilation, Less than 24 Consecutive Hours, Continuous Positive Airway Pressure (ICD-10-PCS; 2025-07-19)
DX: A41.9 Sepsis, unspecified organism (principal); R57.0 Cardiogenic shock; J96.01 Acute respiratory failure with hypoxia; E87.20 Acidosis, unspecified; J47.0 Bronchiectasis with acute lower respiratory infection; I27.29 Other secondary pulmonary hypertension; I21.A1 Myocardial infarction type 2; I24.9 Acute ischemic heart disease, unspecified; Z99.81 Dependence on supplemental oxygen; Z20.822 Contact with and (suspected) exposure to COVID-19; J84.10 Pulmonary fibrosis, unspecified; I11.0 Hypertensive heart disease with heart failure; I07.1 Rheumatic tricuspid insufficiency; E87.6 Hypokalemia; J10.01 Influenza due to other identified influenza virus with the same other identified influenza virus pneumonia; I49.3 Ventricular premature depolarization; G43.909 Migraine, unspecified, not intractable, without status migrainosus; E78.5 Hyperlipidemia, unspecified; R74.01 Elevation of levels of liver transaminase levels; Z87.891 Personal history of nicotine dependence; Z79.51 Long term (current) use of inhaled steroids
CPT/HCPCS: 36415; 36600; 71045; 71275; 80048; 80053; 80061; 80202; 81001; 82565; 82805; 83036; 83605; 83880; 84443; 84484; 85025; 85379; 85610; 85730; 87040; 87081; 87426; 87804; 93005; 93306; 93970; 93971; 94640; 96365; 97110; 97116; 97163; 99291; G0378; J0169; J1885; J2405; J2470; J2543; J3480; J7060